=== PATIENT | female | born 2000 | race Caucasian/White ===

== ENCOUNTER 2022-08-11 10:13 | Emergency (ER) | payer SELFPAY ==
--- OUTSIDE RECORDS SUMMARY | 2022-08-11 10:23 | XMS REPORT | Continuity of Care Document ---
:2000 Author Organization [facility] t Address [address] [place] [address] Care Team Providers Name Role Phone RAIMUNDO ZENDEJAS Primary Care Physician Unavailable YADI ARELLANO Attending Clinician Unavailable ARLETH DENISE Attending Clinician Unavailable BRENDON MANE Attending Clinician Unavailable KIM LORA Attending Clinician Unavailable FRANCHESCA ZAMORANO Attending Clinician Unavailable KALI THOMPSON Attending Clinician Unavailable LUCRECIA JORGE Attending Clinician Unavailable LIBRA LEBRON Attending Clinician Unavailable MARY ANN HARMON Attending Clinician Unavailable SVEN ALMANZAR Attending Clinician Unavailable JANNA HUGHES Attending Clinician Unavailable Mk Sebastian Attending Clinician MK SEBASTIAN Attending Clinician Unavailable SUPRIYA DWYER Attending Clinician Unavailable NAVDEEP HARRIS Attending Clinician Unavailable ABIGAIL BARRETT Attending Clinician Unavailable JOSE RAMON ALMAGUER Attending Clinician Unavailable Dylan Duran Attending Clinician RAGHAV OMALLEY Attending Clinician Unavailable IDANIA ERAZO Attending Clinician Unavailable AJ CHAVEZ Attending Clinician Unavailable LUIS SANTOS Attending Clinician Unavailable Christopher Bennett Attending Clinician Andreina Castillo Attending Clinician Marsha Maria Attending Clinician Obed Garcia Attending Clinician Aj Lazaro Jr Attending Clinician Keon Grey Attending Clinician Dc Weaver Attending Clinician Juan Soriano Attending Clinician Payers Payer Name Policy Type Policy Number Effective Date Expiration Date Navdeep ortiz [facility] [id number] 2021 2022 ASSISTANCE PROGRAM 00:00:00 00:00:00 INDIGENT [id number] [facility] [id number] 0064-12-03 2022 PLANNING INDIGENT 00:00:00 00:00:00 Problems Condition Condition Condition Status Onset Resolution Last Treating Co mments Source Name Details Category Date Date Treatment Clinician Date ABD PAIN, ABD PAIN, Diagnosis Active 2021-07-28 Memoria 07-28 23:35:00 l Active 00:00: Ravinder 07/28/2021 00 [facility] LEG INJURY LEG Diagnosis Active 2020-062021-05-06 Memoria INJURY 07-05 05:51:00 l Active 23:15: Ravinder 05/05/2021 00 [facility] FEVER/ FEVER/ Diagnosis Active 2018-03-04 M emoria DIARRHEA / DIARRHEA / 02-28 13:35:00 l VOMITING / VOMITING / 00:00: rmann WEAKNESS WEAKNESS 00 Active 02/28/2018 [facility] UNK UNK Diagnosis Active 2018-02-07 Mem oria Active 02-06 07:54:00 l 02/06/2018 00:00: Vu wright 00 [facility] HEADACHE, HEADACHE, Diagnosis Active 2018-03-04 Memoria VOMITING VOMITING 01-27 13:35:00 l Active 00:00: Ravinder 01/27/2018 00 [facility] DX: R10.9 DX: R10.9 Diagnosis Active 2018-01-24 Memoria Active 01-17 10:30:00 l 01/17/2018 00:00: Vu wright 00 [facility] JOCELYNE JOCELYNE Diagnosis Active 2018-01-09 Mem oria Active 12-24 20:01:00 l 12/24/2017 00:00: Vu wright 00 [facility] ABDOMINAL Diagnosis Active 2018-01-13 Memoria PAIN ABDOMINAL 12-06 14:04:00 l PAIN 00:00: Ravinder Active 00 12/06/2017 [facility] SORE SORE Diagnosis Active 2017-11-04 Mem oria THROAT, THROAT, 11-04 19:16:00 l NECK PAIN NECK PAIN 00:00: Herm rihanna Active 00 11/04/2017 [facility] FAINTED FAINTED Diagnosis Active 2017-10-21 Memoria Active 10-21 13:43:00 l 10/21/2017 00:00: Vu wright 00 [facility] TOOTH PAIN TOOTH Diagnosis Active 2017-09-17 Memoria PAIN 09-13 09:35:00 l Active 00:00: Ravinder 09/13/2017 00 [facility] FEVER, FEVER, Diagnosis Active 2017-07-31 Me moria BODY PAIN, BODY PAIN, 07-31 10:51:00 l COUGH COUGH 00:00: Ravinder Active 00 07/31/2017 [facility] INFECTION INFECTION Diagnosis Active 2017-07-12 Memoria DUE TO DUE TO 07-11 17:17:00 l TATOO TATOO 00:00: Ravinder Active 00 07/11/2017 [facility] ABD PAIN ABD PAIN Diagnosis Active 2016-11-17 Memoria Active 11-16 03:03:00 l 11/16/2016 00:00: Vu wright 00 [facility] Nausea Nausea Problem 2018-08-13 Zbigniew griselda with with 13:31:49 l vomiting, vomiting, Herm rhianna unspecifie unspecifie d d 08/13/2018 [facility], [facility] Functional Functiona Problem 2018-08-13 Memoria dyspepsia l 13:31:49 l dyspepsia [place] 08/13/2018 [facility] Bitten or Bitten or Problem 2017-10-18 Memoria stung by stung by 15:55:59 l nonvenomou nonvenomou greg s insect s insect and other and other nonvenomou nonvenomou s s arthropods arthropods , initial , initial encounter encounter 10/18/2017 [facility] Obesity, Obesity, Problem 2018-09-17 Memoria unspecifie unspecifie 15:08:24 l d d [place] 09/17/2018 [facility] Gastro-eso Gastro-es Problem 2018-09-17 Memoria phageal ophageal 15:08:24 l reflux reflux [place] disease disease without without esophagiti esophagiti s s 09/17/2018 [facility] 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) Herm rhianna 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 09/17/2018 [facility] Gastropare Gastropar Problem 2018-08-27 Memoria sis esis 14:02:38 l 08/27/2018 Vu n [facility] Gastro-eso Gastro-es Problem 2018-08-27 Memoria phageal ophageal 14:02:38 l reflux reflux 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 08/27/2018 [facility] Anxiety Anxiety Problem Resolve 2021-07-30 M emoria (finding) (finding) d 23:51:38 l Resolved [place] Problem 07/30/2021 [facility] Bipolar Bipolar Problem Resolve 2021-07-30 M emoria disorder disorder d 23:51:38 l (disorder) (disorder) He rmann Resolved Problem 07/30/2021 [facility] Depressive Depressiv Problem Resolve 2021-07-30 Memoria disorder e disorder d 23:51:38 l (disorder) (disorder) He rmann Resolved Problem 07/30/2021 [facility] Gastroesop Gastroeso Problem Resolve 2021-07-30 Memoria hageal phageal d 23:51:38 l reflux reflux Ravinder disease disease (disorder) (disorder) Resolved Problem 07/30/2021 [facility] History of History Problem Resolve 2021-07-30 Memoria - of - d 23:51:38 l psychiatri psychiatri He rmann c disorder c disorder (context-d (context-d ependent ependent category) category) Resolved Problem 07/30/2021 [facility] Interstiti Problem Resolve 2021-07-30 Memoria al Interstiti d 23:51:38 l emphysema al Ravinder of lung emphysema (disorder) of lung (disorder) Resolved Problem 07/30/2021 [facility] Migraine Migraine Problem Resolve 2021-07-30 Memoria (disorder) (disorder) d 23:51:38 l Resolved Ravinder Problem 07/30/2021 [facility], [facility] Seizure Seizure Problem Resolve 2021-07-30 M emoria (finding) (finding) d 23:51:38 l Resolved Ravinder Problem 07/30/2021 [facility], [facility] History of Past Illness Condition Condition Condition Status Onset Resolution Last Treating Co mments Source Name Details Category Date Date Treatment Clinician Date Nondisplac Nondispla Problem 2020-062021-05-08 2021-05-08 Memoria ed maddy 07-06 22:16:27 22:16:27 l fracture fracture 18:00: Vu n of distal of distal 00 phalanx of phalanx of left great left great toe, toe, initial initial encounter encounter for closed for closed fracture fracture 05/06/2021 05/08/2021 [facility] Fall (on) Fall (on) Problem 2020-062021-05-08 2021-05-08 Memoria (from) (from) 07-06 22:16:27 22:16:27 l other other 18:00: Ravinder stairs and stairs and 00 steps, steps, initial initial encounter encounter 05/06/2021 05/08/2021 [facility] Pain in Pain in Problem 2020-062021-05-08 2021-05-08 Memoria right right 07-06 22:16:27 22:16:27 l ankle ankle 18:00: Ravinder 05/06/2021 00 05/08/2021 [facility] Sprain of Sprain Problem 2020-062021-05-08 2021-05-08 Memoria unspecifie of 07-06 22:16:27 22:16:27 l d ligament unspecifie 18:00: He greg of right d ligament 00 ankle, of right initial ankle, encounter initial encounter 05/06/2021 05/08/2021 [facility] Viral Viral Problem 2017-2018-09-17 2018-09-17 brent infection, infection, 02-28 15:08:24 15:08:24 l unspecifie unspecifie 05:00: He greg d d 00 02/28/2018 09/17/2018 [facility] Gastritis, Gastritis Problem 2017-2018-09-17 2018-09-17 Memoria unspecifie , 02-28 15:08:24 15:08:24 l d, without unspecifie 05:00: He rmann bleeding d, without 00 bleeding 02/28/2018 9 [facility], [facility] Headache Headache Problem 2018-09-17 2018-09-17 Memoria 02/28/201802-28 15:08:24 15:08:24 l 09/17/2018 05:00: Vu wright 00 [facility] Diaphragma Diaphragm Problem 2018-08-27 2018-08-27 Memoria tic hernia atic 02-16 14:02:38 14:02:38 l without hernia 02:45: Ravinder obstructio without 00 n or obstructio gangrene n or gangrene 02/16/2018 9 [facility] Unspecifie Unspecifi Problem 2018-08-13 2018-08-13 Memoria d ed 02-01 13:31:49 13:31:49 l abdominal abdominal 03:58: Herm rhianna pain pain 55 02/01/2018 9 [facility] Obstructiv Obstructi Problem 2018-07-29 2018-07-29 Memoria e sleep ve sleep 01-16 12:50:48 12:50:48 l apnea apnea 03:21: Ravinder (adult) (adult) 54 (pediatric (pediatric ) ) 01/16/2018 9 [facility] Vomiting, Vomiting, Problem 2017-11-07 2017-11-07 Memoria unspecifie unspecifie 11-04 00:52:58 00:52:58 l d d 05:00: Ravinder 11/04/2017 8 [facility] Cough Cough Problem 2017-11-06 2017-11-06 M emoria 07/31/201707-31 14:45:10 14:45:10 l 11/06/2017 06:00: Vu wirght [address] Acute Acute Problem 2017-11-06 2017-11-06 M emoria pharyngiti pharyngiti 07-31 14:45:10 14:45:10 l s, s, 06:00: Ravinder unspecifie unspecifie 00 d d 07/31/2017 11/06/2017 [facility] Myalgia Myalgia Problem 2017-10-24 2017-10-24 Memoria 10/21/201710-21 02:28:36 02:28:36 l 10/24/2017 05:00: Vu wright [address] Syncope Syncope Problem 2017-10-24 2017-10-24 Memoria and and 10-21 02:28:36 02:28:36 l collapse collapse 05:00: Vu wright 10/21/2017 00 10/24/2017 [facility] Insect Insect Problem 2017-10-18 2017-10-18 Memoria bite bite 07-19 15:55:59 15:55:59 l (nonvenomo (nonvenomo 05:07: He greg ) of ) of 45 left left forearm, forearm, initial initial encounter encounter 07/19/2017 10/18/2017 [facility] Other Other Problem 2016-11-20 2016-11-20 Memoria chest pain chest pain 11-17 01:11:21 01:11:21 l 11/17/2016 05:00: Vu wright 11/20/2016 00 [facility] Fracture Fracture Problem 2016-11-20 2016-11-20 Memoria of one of one 11-17 01:11:21 01:11:21 l rib, rib, 05:00: Ravinder unspecifie unspecifie 00 d side, d side, initial initial encounter encounter for closed for closed fracture fracture 11/17/2016 7 [facility] Allergies, Adverse Reactions, Alerts Allergy Allergy Status Severity Reaction(s) Onset Inactive Treating Comm ents Source Name Type Date Date Clinician Meloxica Propensi Active Swelling 2016-06 Meth see m ty to 06-18 st adverse 00:00: Hospita reaction 00 l s to drug Escitalo Propensi Active Method i pram ty to 6 st Oxalate adverse 00:00: Hospita reaction 00 l s to drug Morphine Propensi Active Method i ty to 12-07 st adverse 00:00: Hospita reaction 00 l s to drug morphine morphine Active Memori a l [place] Lexapro Lexapro Active Memoria l [place] Tape<sup Tape<sup Active Memori a >1</sup> >1</sup> l [place] Social History Social Habit Start Date Stop Date Quantity Comments Source Social History 2021-07-29 2021-07-29 [facility] 02:09:07 02:09:07 Alcohol intake 2020-03-04 2020-03-04 Current drinker of [facility] 00:00:00 00:00:00 alcohol (finding) Hospita l Tobacco use and 2018-06-19 2018-06-19 Smokeless tobacco [facility] exposure 00:00:00 00:00:00 non-user Hospital Alcohol Comment 2018-06-19 2018-06-19 occassional Methodis t 00:00:00 00:00:00 Hospital Sex Assigned At [birth year] [place] 00:00:00 00:00:00 Hospital Smoking Status Start Date Stop Date Source Social History [facility] Medications Ordered Filled Start Stop Current Ordering Indication Dosage Frequency Signature Comments Components Source Medication Medication Date Date Medication? Clinician (SIG) Name Name Cephalexin Yes 500 mg = 1 M emoria 500 MG Oral 2-19 cap, PO, l Capsule 03:55: TID, X 5 Vu n [Keflex] day, # 15 cap, 0 Refill(s) Metoclopram Yes 10 mg = 1 M emoria ingrid 10 MG 2-19 tab, PO, l Oral Tablet 03:55: QID-Before [place] [Reglan] 00 Meals, PRN nausea and vomiting, X 3 day, # 12 tab, 0 Refill(s) doxylamine Yes 1 tab, PO, M emoria succinate 2-19 Bedtime, # l 10 MG / 03:55: 14 tab, 0 Trudy nn Pyridoxine 00 Refill(s) Hydrochlori de 10 MG Enteric Coated Tablet [Diclegis] Cephalexin Yes 500 mg = 1 M emoria 500 MG Oral 2-19 cap, PO, l Capsule 03:55: TID, X 5 Vu n [Keflex] 00 day, # 15 cap, 0 Refill(s) Metoclopram Yes 10 mg = 1 M emoria ingrid 10 MG 2-19 tab, PO, l Oral Tablet 03:55: QID-Before [place] [Reglan] 00 Meals, PRN nausea and vomiting, X 3 day, # 12 tab, 0 Refill(s) doxylamine 0 Yes 1 tab, PO, M emoria succinate 2-19 Bedtime, # l 10 MG / 03:55: 14 tab, 0 Trudy nn Pyridoxine 00 Refill(s) Hydrochlori de 10 MG Enteric Coated Tablet [Diclegis] Cephalexin Yes 500 mg = 1 M emoria 500 MG Oral 2-19 cap, PO, l Capsule 03:55: TID, X 5 Vu n [Keflex] 00 day, # 15 cap, 0 Refill(s) Metoclopram Yes 10 mg = 1 M emoria ingrid 10 MG 2-19 tab, PO, l Oral Tablet 03:55: QID-Before Ravinder [Reglan] 00 Meals, PRN nausea and vomiting, X 3 day, # 12 tab, 0 Refill(s) doxylamine 0 Yes 1 tab, PO, M emoria succinate 2-19 Bedtime, # l 10 MG / 03:55: 14 tab, 0 Trudy nn Pyridoxine 00 Refill(s) Hydrochlori de 10 MG Enteric Coated Tablet [Diclegis] Sodium 2021-0 No 1,000 mL, Memori a Chloride 2-19 1,000 l 0.9% 03:52: ml/hr, Ravinder (Bolus) IV 00 Infuse Over: 1 hr, Route: IV, 1,000, Drug form: INJ, ONCE, Priority: STAT, Dosing Weight 101.449 kg, Start date: 07/28/21 21:52: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, Stop date: 07/28/21 21:52: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, 0 Sodium 2021-0 No 1,000 mL, Memori a Chloride 2-19 1,000 l 0.9% 03:52: ml/hr, [place] (Bolus) IV 00 Infuse Over: 1 hr, Route: IV, 1,000, Drug form: INJ, ONCE, Priority: STAT, Dosing Weight 101.449 kg, Start date: 07/28/21 21:52: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, Stop date: 07/28/21 21:52: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 Ravinder 00 (Same as: Tylenol) Acetaminoph No Notes: Do M emoria en - not exceed l 01:59: 4 gm/day. [place] 00 (Same as: Tylenol) Acetaminoph No Notes: Do M emoria en - not exceed l 01:59: 4 gm/day. Ravinder (Same as: Tylenol) tramadol 2020-06 Yes 1 - 2 Memoria hydrochlori 1-27 tabs, PO, l de 50 MG 12:15: Q6H, PRN Trudy nn Oral Tablet 00 Pain Score [Ultram] 6-10, X 4 day, # 20 tab, 0 Refill(s) tramadol 2020-06 Yes 1 - 2 Memoria hydrochlori 1-27 tabs, PO, l de 50 MG 12:15: Q6H, PRN Trudy nn Oral Tablet 00 Pain Score [Ultram] 6-10, X 4 day, # 20 tab, 0 Refill(s) tramadol 2020-06 Yes 1 - 2 Memoria hydrochlori 1-27 tabs, PO, l de 50 MG 12:15: Q6H, PRN Trudy nn Oral Tablet 00 Pain Score [Ultram] 6-10, X 4 day, # 20 tab, 0 Refill(s) Ketorolac 2020-06 No 4 days Memor ia - l 09:59: MEDICATION [place] WASTE Product Size: 60 mg Product Wasted: ___ mg Ketorolac 2020-06 No 4 days Memor ia 07-06 l 09:59: MEDICATION [place] WASTE Product Size: 60 mg Product Wasted: ___ mg Ketorolac 2020-06 No 4 days Memor ia 07-06 l 09:59: MEDICATION [place] WASTE Product Size: 60 mg Product Wasted: ___ mg baclofen 2020-0 Yes 10mg Q24H Take 10 mg Met hodi (LIORESAL) 1-[address] 10 MG 12:00: daily as Hospita tablet 00 needed. l promethazin 2020-0 Yes 25mg Q6H Take 25 mg Methodi e 1-[address] (PHENERGAN) 11:38: every 6 Hos karely 25 MG 03 (six) l tablet hours as needed for nausea or vomiting. ondansetron 2020-0 Yes 8mg Q8H Take 8 mg M ethodi (ZOFRAN) 8 1-[address] MG tablet 11:38: every 8 Hospi ta 03 (eight) l hours as needed for nausea or vomiting. omeprazole 2020-0 Yes 40mg QD Take 40 mg M ethodi (PriLOSEC) 1-[address] 20 MG 11:38: daily. Hospita capsule 03 l OXcarbazepi 2020-0 Yes 600mg Q.5D Take 600 M ethodi ne 1-[address] (TRILEPTAL) 11:38: mouth 2 Hos karely 600 MG 03 (two) l tablet times a day. traZODone 2017-06 Yes 50mg QD Take 50 mg Me thodi (DESYREL) 2-[address] 50 MG 00:00: nightly. Hospita tablet 00 l Metoclopram 2017-0 No 10 mg = 1 M emoria ingrid 10 MG 9-21 tab, PO, l Oral Tablet 20:36: QID-Before [place] [Reglan] 00 Meals, X 10 day, # 20 tab, 0 Refill(s) Metoclopram 2017- No 10 mg = 1 M emoria ingrid 10 MG 9-21 tab, PO, l Oral Tablet 20:36: QID-Before Ravinder [Reglan] 00 Meals, X 10 day, # 20 tab, 0 Refill(s) Metoclopram 2018-0 No 10 mg = 1 M emoria ingrid 10 MG -21 tab, PO, l Oral Tablet 20:36: QID-Before [place] [Reglan] 00 Meals, X 10 day, # 20 tab, 0 Refill(s) Tylenol 2018-0 No 1,000 mg, Memor ia 02-28 Route: PO, l 18:44: Drug form: [place] 00 TAB, ONCE, Dosing Weight 85, kg, Priority: STAT, Start date: 02/28/18 13:44:00 CDT, Stop date: 02/28/18 13:44:00 CDT Zofran ODT 2018-0 No 4 mg, Memori a 02-28 Route: PO, l 18:44: Drug form: [place] 00 TABDIS, ONCE, Dosing Weight 85.455, kg, Priority: STAT, Start date: 02/28/18 13:44:00 CDT, Stop date: 02/28/18 13:44:00 CDT Tylenol 2018-0 No 1,000 mg, Memor ia 02-28 Route: PO, l 18:44: Drug form: Ravinder 00 TAB, ONCE, Dosing Weight 85, kg, Priority: STAT, Start date: 02/28/18 13:44:00 CDT, Stop date: 02/28/18 13:44:00 CDT Zofran ODT 2018-0 No 4 mg, Memori a 02-28 Route: PO, l 18:44: Drug form: [place] 00 TABDIS, ONCE, Dosing Weight 85.455, kg, Priority: STAT, Start date: 02/28/18 13:44:00 CDT, Stop date: 02/28/18 13:44:00 CDT Tylenol 2018-0 No 1,000 mg, Memor ia 02-28 Route: PO, l 18:44: Drug form: [place] 00 TAB, ONCE, Dosing Weight 85, kg, Priority: STAT, Start date: 02/28/18 13:44:00 CDT, Stop date: 02/28/18 13:44:00 CDT Zofran ODT 2018-0 No 4 mg, Memori a 02-28 Route: PO, l 18:44: Drug form: [place] 00 TABDIS, ONCE, Dosing Weight 85.455, kg, Priority: STAT, Start date: 02/28/18 13:44:00 CDT, Stop date: 02/28/18 13:44:00 CDT Sodium 2018-0 No 1,000 mL, Memori a Chloride 8-31 Rate: 25 l 0.9% IV 13:16: ml/hr, Ravinder 1,000 mL 00 Infuse over: 40 hr, Route: IV, Dosing Weight 85.455 kg, Total Volume: 1,000, Start date: 02/07/18 8:16:00 CDT, Duration: 1 day, Stop date: 02/08/18 8:15:00 CDT, 2.03, m2 Sodium 2018-0 No 1,000 mL, Memori a Chloride 8-31 Rate: 25 l 0.9% IV 13:16: ml/hr, Ravinder 1,000 mL 00 Infuse over: 40 hr, Route: IV, Dosing Weight 85.455 kg, Total Volume: 1,000, Start date: 02/07/18 8:16:00 CDT, Duration: 1 day, Stop date: 02/08/18 8:15:00 CDT, 2.03, m2 Sodium 2018-0 No 1,000 mL, Memori a Chloride 8-31 Rate: 25 l 0.9% IV 13:16: ml/hr, [place] 1,000 mL 00 Infuse over: 40 hr, Route: IV, Dosing Weight 85.455 kg, Total Volume: 1,000, Start date: 02/07/18 8:16:00 CDT, Duration: 1 day, Stop date: 02/08/18 8:15:00 CDT, 2.03, m2 lisdexamfet 2017- Yes 40 mg = 1 M emoria amine 8-30 cap, PO, l dimesylate 22:13: QAM, # 30 He rmann 40 MG Oral 00 cap, 0 Capsule Refill(s) [Vyvanse] Acetaminoph 2017-0 Yes 1 cap, PO, Memoria en 300 MG / 8-30 Daily, PRN l butalbital 22:13: Headache Her montiel 50 MG / 00 1-5, 0 Caffeine 40 Refill(s) MG Oral Capsule [Fioricet] Ondansetron 2018-0 Yes 8 mg = 1 Me moria 8 MG 8-30 tab, PO, l Disintegrat 22:13: BID, 0 Herm rhianna ing Tablet 00 Refill(s) [Zofran] Promethazin 2018-0 Yes 25 mg = 1 M emoria e 8-30 tab, PO, l Hydrochlori 22:13: BID, 0 Herm rhianna de 25 MG 00 Refill(s) Oral Tablet lisdexamfet 2018-0 Yes 40 mg = 1 M emoria amine 8-30 cap, PO, l dimesylate 22:13: QAM, # 30 He rmann 40 MG Oral 00 cap, 0 Capsule Refill(s) [Vyvanse] Acetaminoph 2018-0 Yes 1 cap, PO, Memoria en 300 MG / 8-30 Daily, PRN l butalbital 22:13: Headache Her montiel 50 MG / 00 1-5, 0 Caffeine 40 Refill(s) MG Oral Capsule [Fioricet] Ondansetron 2018-0 Yes 8 mg = 1 Me moria 8 MG 8-30 tab, PO, l Disintegrat 22:13: BID, 0 Herm rhianna ing Tablet 00 Refill(s) [Zofran] Promethazin 2018-0 Yes 25 mg = 1 M emoria e 8-30 tab, PO, l Hydrochlori 22:13: BID, 0 Herm rhianna de 25 MG 00 Refill(s) Oral Tablet lisdexamfet 2018-0 Yes 40 mg = 1 M emoria amine 8-30 cap, PO, l dimesylate 22:13: QAM, # 30 He rmann 40 MG Oral 00 cap, 0 Capsule Refill(s) [Vyvanse] Acetaminoph 2018-0 Yes 1 cap, PO, Memoria en 300 MG / 8-30 Daily, PRN l butalbital 22:13: Headache Her montiel 50 MG / 00 1-5, 0 Caffeine 40 Refill(s) MG Oral Capsule [Fioricet] Ondansetron 2018-0 Yes 8 mg = 1 Me moria 8 MG 8-30 tab, PO, l Disintegrat 22:13: BID, 0 Herm rhianna ing Tablet 00 Refill(s) [Zofran] Promethazin 2018-0 Yes 25 mg = 1 M emoria e 8-30 tab, PO, l Hydrochlori 22:13: BID, 0 Herm rhianna de 25 MG 00 Refill(s) Oral Tablet Esomeprazol Yes 40 mg = 1 M emoria e 40 MG 8-30 cap, PO, l Enteric 22:12: Daily, # Vu n Coated 00 30 cap, 0 Capsule Refill(s) Esomeprazol Yes 40 mg = 1 M emoria e 40 MG 8-30 cap, PO, l Enteric 22:12: Daily, # Vu n Coated 00 30 cap, 0 Capsule Refill(s) Esomeprazol Yes 40 mg = 1 M emoria e 40 MG 8-30 cap, PO, l Enteric 22:12: Daily, # Vu n Coated 00 30 cap, 0 Capsule Refill(s) Buspar Yes PO, BID, 0 Memor ia 8-30 Refill(s) l 22:11: Ravinder 00 baclofen Yes 10 mg = 1 M emoria mg oral 8-30 tab, PO, l tablet 22:11: BID, 0 Ravinder 00 Refill(s) 24 HR Yes 1,000 mg = Memori a Divalproex 8-30 2 tab, PO, l Sodium 500 22:11: Bedtime, # H ermann MG Extended 00 60 tab, 1 Release Refill(s) Tablet Buspar 0 Yes PO, BID, 0 Memor ia 8-30 Refill(s) l 22:11: [place] 00 baclofen 10 Yes 10 mg = 1 M emoria mg oral 8-30 tab, PO, l tablet 22:11: BID, 0 Ravinder 00 Refill(s) 24 HR Yes 1,000 mg = Memori a Divalproex 8-30 2 tab, PO, l Sodium 500 22:11: Bedtime, # H ermann MG Extended 00 60 tab, 1 Release Refill(s) Tablet Buspar 0 Yes PO, BID, 0 Memor ia 8-30 Refill(s) l 22:11: [place] 00 baclofen 10 Yes 10 mg = 1 M emoria mg oral 8-30 tab, PO, l tablet 22:11: BID, 0 [place] 00 Refill(s) 24 HR Yes 1,000 mg = Memori a Divalproex 8-30 2 tab, PO, l Sodium 500 22:11: Bedtime, # H ermann MG Extended 00 60 tab, 1 Release Refill(s) Tablet Ondansetron Yes 4 mg = 1 Me moria 4 MG 6-29 tab, PO, l Disintegrat 14:48: TID, PRN He rmann ing Tablet 00 Nausea & [Zofran] Vomiting, Dissolve tab under tongue, # 9 tab, 0 Refill(s) Famotidine Yes 20 mg = 1 Me moria 20 MG Oral 6-29 tab, PO, l Tablet 14:48: BID, PRN [place] [Pepcid] 00 Heartburn, # 60 tab, 0 Refill(s) Ondansetron Yes 4 mg = 1 Me moria 4 MG 6-29 tab, PO, l Disintegrat 14:48: TID, PRN He rmann ing Tablet 00 Nausea & [Zofran] Vomiting, Dissolve tab under tongue, # 9 tab, 0 Refill(s) Famotidine Yes 20 mg = 1 Me moria 20 MG Oral 6-29 tab, PO, l Tablet 14:48: BID, PRN [place] [Pepcid] 00 Heartburn, # 60 tab, 0 Refill(s) Ondansetron Yes 4 mg = 1 Me moria 4 MG 6-29 tab, PO, l Disintegrat 14:48: TID, PRN He rmann ing Tablet 00 Nausea & [Zofran] Vomiting, Dissolve tab under tongue, # 9 tab, 0 Refill(s) Famotidine Yes 20 mg = 1 Me moria 20 MG Oral 6-29 tab, PO, l Tablet 14:48: BID, PRN [place] [Pepcid] 00 Heartburn, # 60 tab, 0 Refill(s) Pepcid No 20 mg, Memoria 12-06 Route: l 13:23: IVP, ONCE, Ravinder Dosing Weight 84.545, kg, Priority: STAT, Start date: 12/06/17 8:23:00 CDT, Stop date: 12/06/17 8:23:00 CDT GI cocktail No 30 mL, Zbigniew griselda 12-06 Route: PO, l 13:23: Dosing Weight 84.545, kg, ONCE, STAT, Start date: 12/06/17 8:23:00 CDT, Stop date: 12/06/17 8:23:00 CDT Ondansetron 2018-0 No 4 mg, [facility] ia 12-06 Route: l 13:23: IVP, Drug form: INJ, ONCE, Dosing Weight 84.545, kg, Priority: STAT, Start date: 12/06/17 8:23:00 CDT, Stop date: 12/06/17 8:23:00 CDT NS (Bolus) 2018-0 No 1,000 mL, Me moria IV - 2,000 l 13:23: ml/hr, [place] 00 Infuse Over: 1 hr, Route: IV, ONCE, Priority: STAT, Dosing Weight 84.545 kg, Start date: 12/06/17 8:23:00 CDT, Stop date: 12/06/17 8:23:00 CDT Pepcid 2018-0 No 20 mg, [facility] 12-06 Route: l 13:23: IVP, ONCE, Dosing Weight 84.545, kg, Priority: STAT, Start date: 12/06/17 8:23:00 CDT, Stop date: 12/06/17 8:23:00 CDT GI cocktail 2017-0 No 30 mL, Zbigniew griselda 12-06 Route: PO, l 13:23: Dosing Weight 84.545, kg, ONCE, STAT, Start date: 12/06/17 8:23:00 CDT, Stop date: 12/06/17 8:23:00 CDT Ondansetron 2017-0 No 4 mg, [facility] 12-06 Route: l 13:23: IVP, Drug form: INJ, ONCE, Dosing Weight 84.545, kg, Priority: STAT, Start date: 12/06/17 8:23:00 CDT, Stop date: 12/06/17 8:23:00 CDT NS (Bolus) 2018-0 No 1,000 mL, Me moria IV - 2,000 l 13:23: ml/hr, [place] 00 Infuse Over: 1 hr, Route: IV, ONCE, Priority: STAT, Dosing Weight 84.545 kg, Start date: 12/06/17 8:23:00 CDT, Stop date: 12/06/17 8:23:00 CDT Pepcid 2018-0 No 20 mg, [facility] 12-06 Route: l 13:23: IVP, ONCE, Dosing Weight 84.545, kg, Priority: STAT, Start date: 12/06/17 8:23:00 CDT, Stop date: 12/06/17 8:23:00 CDT GI cocktail 2018-0 No 30 mL, Zbigniew griselda 12-06 Route: PO, l 13:23: Dosing Weight 84.545, kg, ONCE, STAT, Start date: 12/06/17 8:23:00 CDT, Stop date: 12/06/17 8:23:00 CDT Ondansetron 2018-0 No 4 mg, [facility] 12-06 Route: l 13:23: IVP, Drug form: INJ, ONCE, Dosing Weight 84.545, kg, Priority: STAT, Start date: 12/06/17 8:23:00 CDT, Stop date: 12/06/17 8:23:00 CDT NS (Bolus) 2018-0 No 1,000 mL, Me moria IV 12-06 2,000 l 13:23: ml/hr, [place] 00 Infuse Over: 1 hr, Route: IV, ONCE, Priority: STAT, Dosing Weight 84.545 kg, Start date: 12/06/17 8:23:00 CDT, Stop date: 12/06/17 8:23:00 CDT Ondansetron 2018-0 Yes 4 mg = 1 Me moria 4 MG 5-29 tab, PO, l Disintegrat 03:34: TID, PRN He rmann ing Tablet 00 Nausea and [Zofran] Vomiting, Dissolve under tongue, # 12 tab, 0 Refill(s) Ondansetron 2018-0 Yes 4 mg = 1 Me moria 4 MG 5-29 tab, PO, l Disintegrat 03:34: TID, PRN He rmann ing Tablet 00 Nausea and [Zofran] Vomiting, Dissolve under tongue, # 12 tab, 0 Refill(s) Ondansetron 2018-0 Yes 4 mg = 1 Me moria 4 MG 5-29 tab, PO, l Disintegrat 03:34: TID, PRN He rmann ing Tablet 00 Nausea and [Zofran] Vomiting, Dissolve under tongue, # 12 tab, 0 Refill(s) Sodium 0 No 1,000 mL, Memori a Chloride 5-29 1,000 l 0.9% 00:37: ml/hr, Ravinder (Bolus) IV 00 Infuse Over: 1 hr, Route: IV, 1,000, Drug form: INJ, ONCE, Priority: STAT, Dosing Weight 82.727 kg, Start date: 11/04/17 19:37:00 CDT, Stop date: 11/04/17 19:37:00 CDT Sodium 2017- No 1,000 mL, Memori a Chloride 5-29 1,000 l 0.9% 00:37: ml/hr, [place] (Bolus) IV 00 Infuse Over: 1 hr, Route: IV, 1,000, Drug form: INJ, ONCE, Priority: STAT, Dosing Weight 82.727 kg, Start date: 11/04/17 19:37:00 CDT, Stop date: 11/04/17 19:37:00 CDT Sodium No 1,000 mL, Mem[facility] a Chloride 5-29 1,000 l 0.9% 00:37: ml/hr, Ravinder (Bolus) IV 00 Infuse Over: 1 hr, Route: IV, 1,000, Drug form: INJ, ONCE, Priority: STAT, Dosing Weight 82.727 kg, Start date: 11/04/17 19:37:00 CDT, Stop date: 11/04/17 19:37:00 CDT Zofran ODT No Notes: [facility] 5-28 (Same as: l 23:44: Zofran Ravinder 00 ODT) Zofran ODT 0 No Notes: [facility] 5-28 (Same as: l 23:44: Zofran [place] 00 ODT) Zofran ODT 0 No Notes: [facility] 5-28 (Same as: l 23:44: Zofran Ravinder 00 ODT) Acetaminoph 0 No 1 tab, PO, Memoria en 300 MG / 5-14 Q6H, PRN l Codeine 18:53: Pain, can Trudy nn Phosphate 00 be 30 MG Oral sedating, Tablet # 12 tab, [Tylenol 0 with Refill(s) Codeine #3] Acetaminoph 0 No 1 tab, PO, Memoria en 300 MG / 5-14 Q6H, PRN l Codeine 18:53: Pain, can Trudy nn Phosphate 00 be 30 MG Oral sedating, Tablet # 12 tab, [Tylenol 0 with Refill(s) Codeine #3] Acetaminoph 0 No 1 tab, PO, Memoria en 300 MG / 5-14 Q6H, PRN l Codeine 18:53: Pain, can Trudy nn Phosphate 00 be 30 MG Oral sedating, Tablet # 12 tab, [Tylenol 0 with Refill(s) Codeine #3] Acetaminoph No 1 tab, Zbigniew griselda en 325 MG / 5-14 Route: PO, l Hydrocodone 17:11: Drug Form: Ravindre Bitartrate 00 TAB, 5 MG Oral Dosing Tablet Weight [[place] 80.455, 5/325] kg, ONCE, STAT, Start date: 10/21/17 12:11:00 CDT, Stop date: 10/21/17 12:11:00 CDT Acetaminoph 2017-0 No 1 tab, Zbigniew griselda en 325 MG / 5-14 Route: PO, l Hydrocodone 17:11: Drug Form: Ravinder Bitartrate 00 TAB, 5 MG Oral Dosing Tablet Weight [[place] 80.455, 5/325] kg, ONCE, STAT, Start date: 10/21/17 12:11:00 CDT, Stop date: 10/21/17 12:11:00 CDT Acetaminoph 0 No 1 tab, Zbigniew griselda en 325 MG / 5-14 Route: PO, l Hydrocodone 17:11: Drug Form: [place] Bitartrate 00 TAB, 5 MG Oral Dosing Tablet Weight [[place] 80.455, 5/325] kg, ONCE, STAT, Start date: 10/21/17 12:11:00 CDT, Stop date: 10/21/17 12:11:00 CDT busPIRone 2017- Yes 10mg [id number] Take 10 mg [facility] (BUSPAR) 10 4-16 [id number] by mouth [address] MG tablet 00:00: 3D (three) Hospi ta 00 times a l day. Fluticasone 2017- Yes 1 spray, Me moria propionate 2-21 NASAL, l 0.05 16:59: BID, # 16 [place] MG/ACTUAT 00 gm, 0 Metered Refill(s) Dose Nasal [place] [Flonase] Fluticasone 0 Yes 1 spray, Me moria propionate 2-21 NASAL, l 0.05 16:59: BID, # 16 Ravinder MG/ACTUAT 00 gm, 0 Metered Refill(s) Dose Nasal [place] [Flonase] Fluticasone 20180 Yes 1 spray, Me moria propionate 2-21 NASAL, l 0.05 16:59: BID, # 16 [place] MG/ACTUAT 00 gm, 0 Metered Refill(s) Dose Nasal [place] [Flonase] Acetaminoph No 1 tab, Zbigniew griselda en 325 MG / 6-10 Route: PO, l Hydrocodone 09:54: Drug Form: Ravinder Bitartrate 00 TAB, 5 MG Oral Dosing Tablet Weight [[place] 54.545, 5/325] kg, ONCE, STAT, Start date: 11/17/16 4:54:00 CDT, Stop date: 11/17/16 4:54:00 CDT Acetaminoph 0 No 1 tab, Zbigniew griselda en 325 MG / 6-10 Route: PO, l Hydrocodone 09:54: Drug Form: Ravinder Bitartrate 00 TAB, 5 MG Oral Dosing Tablet Weight [[place] 54.545, 5/325] kg, ONCE, STAT, Start date: 11/17/16 4:54:00 CDT, Stop date: 11/17/16 4:54:00 CDT Acetaminoph No 1 tab, Zbigniew griselda en 325 MG / 6-10 Route: PO, l Hydrocodone 09:54: Drug Form: Ravinder Bitartrate 00 TAB, 5 MG Oral Dosing Tablet Weight [[place] 54.545, 5/325] kg, ONCE, STAT, Start date: 11/17/16 4:54:00 CDT, Stop date: 11/17/16 4:54:00 CDT tramadol Yes 50 mg = 1 Zbigniew griselda hydrochlori 6-10 tab, PO, l de 50 MG 09:38: BID, X 15 Herm rhianna Oral Tablet 00 day, # 16 tab, 0 Refill(s) tramadol Yes 50 mg = 1 Zbigniew griselda hydrochlori 6-10 tab, PO, l de 50 MG 09:38: BID, X 15 Herm rhianna Oral Tablet 00 day, # 16 tab, 0 Refill(s) tramadol Yes 50 mg = 1 Zbigniew griselda hydrochlori 6-10 tab, PO, l de 50 MG 09:38: BID, X 15 Herm rhianna Oral Tablet 00 day, # 16 tab, 0 Refill(s) Zofran No Notes: [facility] 6-10 (Same as: l 07:19: Zofran Ravinder 00 ODT) Zofran No Notes: [facility] 6-10 (Same as: l 07:19: Zofran [place] 00 ODT) Zofran No Notes: [facility] 6-10 (Same as: l 07:19: Zofran [place] 00 ODT) Pepcid No Notes: [facility] 6-10 (Same as: l 07:18: Pepcid) [place] Carafate No Notes: May Mem oria 6-10 interfere l 07:18: w/enteral Ravinder 00 feeds - Take 1 hr before or 2 hr after antacids, dairy pdt, meals & minerals - On empty stomach. For patients unable to swallow tablet, dissolve in 10mL - 30mL of water or juice and stir before giving. (Same As: Carafate) Pepcid No Notes: [facility] 6-10 (Same as: l 07:18: Pepcid) Ravinder 00 Carafate No Notes: May [facility] o[facility] 6-10 interfere l 07:18: w/enteral [place] 00 feeds - Take 1 hr before or 2 hr after antacids, dairy pdt, meals & minerals - On empty stomach. For patients unable to swallow tablet, dissolve in 10mL - 30mL of water or juice and stir before giving. (Same As: Carafate) Pepcid No Notes: [facility] 6-10 (Same as: l 07:18: Pepcid) [place] 00 Carafate 2017-0 No Notes: October Mem o[facility] 6-10 interfere l 07:18: w/enteral [place] 00 feeds - Take 1 hr before or 2 hr after antacids, dairy pdt, meals & minerals - On empty stomach. For patients unable to swallow tablet, dissolve in 10mL - 30mL of water or juice and stir before giving. (Same As: Carafate) Vital Signs Vital Name Observation Time Observation Value Comments Source Temperature Oral (F) 2021-07-29 04:45:00 97.6 F [facility] [place] Heart Rate 2021-07-29 04:45:00 [facility] Respitory Rate 2021-07-29 04:45:00 [facility] [place] Systolic (mm Hg) 2021-07-29 04:45:00 Zbigniew rial Ravinder Diastolic (mm Hg) 2021-07-29 04:45:00 Mem orial [place] Height 2021-07-29 01:54:00 170.18 cm [facility] BMI Calculated 2021-07-29 01:54:00 [facility] Weight 2021-07-29 01:54:00 [facility] [place] Systolic (mm Hg) 2021-07-29 01:54:00 Zbigniew rial Ravinder Diastolic (mm Hg) 2021-07-29 01:54:00 Mem orial [place] Heart Rate 2021-07-29 01:54:00 [facility] Respitory Rate 2021-07-29 01:54:00 [facility] [place] Temperature Oral (F) 2021-05-06 13:09:00 98.2 F [facility] [place] Heart Rate 2021-05-06 13:09:00 [facility] [place] Respitory Rate 2021-05-06 13:09:00 [facility] [place] Systolic (mm Hg) 2021-05-06 13:09:00 Zbigniew rial [place] Diastolic (mm Hg) 2021-05-06 13:09:00 [facility] o[facility] [place] Temperature Oral (F) 2021-05-06 09:30:00 98.9 F [facility] Heart Rate 2021-05-06 09:30:00 [facility] [place] Respitory Rate 2021-05-06 09:30:00 [facility] Systolic (mm Hg) 2021-05-06 09:30:00 Zbigniew rial [place] Diastolic (mm Hg) 2021-05-06 09:30:00 [facility] Height 2021-05-06 05:58:00 170.18 cm [facility] [place] BMI Calculated 2021-05-06 05:58:00 [facility] Weight 2021-05-06 05:58:00 [facility] Systolic (mm Hg) 2021-05-06 05:58:00 Zbigniew rial [place] Diastolic (mm Hg) 2021-05-06 05:58:00 Mem o[facility] Heart Rate 2021-05-06 05:58:00 [facility] [place] Respitory Rate 2021-05-06 05:58:00 [facility] [place] Temperature Oral (F) 2021-05-06 05:58:00 98.7 F [facility] Temperature Oral (F) 2018-02-28 20:34:00 99.5 F [facility] [place] Respitory Rate 2018-02-28 19:23:00 [facility] [place] Heart Rate 2018-02-28 19:23:00 [facility] Systolic (mm Hg) 2018-02-28 19:23:00 Zbigniew rial [place] Diastolic (mm Hg) 2018-02-28 19:23:00 [facility] o[facility] Ravinder Temperature Oral (F) 2018-02-28 19:23:00 98.9 F [facility] [place] Height 2018-02-28 18:35:00 170.18 cm [facility] [place] BMI Calculated 2018-02-28 18:35:00 [facility] [place] Weight 2018-02-28 18:35:00 [facility] [place] Systolic (mm Hg) 2018-02-28 18:35:00 Zbigniew rial [place] Diastolic (mm Hg) 2018-02-28 18:35:00 Mem o[facility] [place] Heart Rate 2018-02-28 18:35:00 [facility] [place] Temperature Oral (F) 2018-02-28 18:35:00 99.4 F [facility] Respitory Rate 2018-02-28 18:35:00 [facility] [place] Respitory Rate 2018-02-07 14:44:00 [facility] Systolic (mm Hg) 2018-02-07 14:44:00 Zbigniew rial [place] Diastolic (mm Hg) 2018-02-07 14:44:00 Mem o[facility] Respitory Rate 2018-02-07 14:30:00 [facility] [place] Systolic (mm Hg) 2018-02-07 14:30:00 Zbigniew rial [place] Diastolic (mm Hg) 2018-02-07 14:30:00 [facility] o[facility] Ravinder Respitory Rate 2018-02-07 14:15:00 [facility] Systolic (mm Hg) 2018-02-07 14:15:00 Zbigniew rial [place] Diastolic (mm Hg) 2018-02-07 14:15:00 [facility] o[facility] [place] Weight 2018-02-06 21:52:00 [facility] [place] BMI Calculated 2018-02-06 21:52:00 [facility] [place] Height 2018-02-06 21:52:00 170.18 cm [facility] [place] Weight 2018-01-28 04:24:00 [facility] [place] BMI Calculated 2018-01-28 04:24:00 [facility] [place] Height 2018-01-28 04:24:00 170.18 cm [facility] [place] Temperature Oral (F) 2018-01-28 04:24:00 97.5 F [facility] Respitory Rate 2018-01-28 04:24:00 [facility] Heart Rate 2018-01-28 04:24:00 [facility] Systolic (mm Hg) 2018-01-28 04:24:00 Zbigniew rial Rav[place] Diastolic (mm Hg) 2018-01-28 04:24:00 [facility] o[facility] Respitory Rate 2017-12-06 14:22:00 [facility] [place] Systolic (mm Hg) 2017-12-06 14:22:00 Zbigniew rial [place] Diastolic (mm Hg) 2017-12-06 14:22:00 [facility] o[facility] [place] Heart Rate 2017-12-06 14:22:00 [facility] Weight 2017-12-06 13:14:00 [facility] BMI Calculated 2017-12-06 13:14:00 [facility] [place] Height 2017-12-06 13:14:00 170.18 cm [facility] Respitory Rate 2017-12-06 13:14:00 [facility] Heart Rate 2017-12-06 13:14:00 [facility] Temperature Oral (F) 2017-12-06 13:14:00 98.4 F [facility] Systolic (mm Hg) 2017-12-06 13:14:00 Zbigniew rial [place] Diastolic (mm Hg) 2017-12-06 13:14:00 Mem o[facility] [place] Systolic (mm Hg) 2017-11-05 03:42:00 Zbigniew rial [place] Diastolic (mm Hg) 2017-11-05 03:42:00 [facility] o[facility] Rav[facility] Respitory Rate 2017-11-05 03:42:00 [facility] [place] Heart Rate 2017-11-05 03:42:00 [facility] Temperature Oral (F) 2017-11-05 03:42:00 98.3 F [facility] [place] Systolic (mm Hg) 2017-11-05 01:31:00 Zbigniew rial [place] Diastolic (mm Hg) 2017-11-05 01:31:00 Mem orial Rav[facility] Heart Rate 2017-11-05 01:31:00 [facility] [place] Respitory Rate 2017-11-05 01:31:00 [facility] [place] Temperature Oral (F) 2017-11-05 01:31:00 98.4 F [facility] [place] Systolic (mm Hg) 2017-11-05 00:10:00 Zbigniew rial [place] Diastolic (mm Hg) 2017-11-05 00:10:00 Mem o[facility] [place] Heart Rate 2017-11-05 00:10:00 [facility] [place] Respitory Rate 2017-11-05 00:10:00 [facility] BMI Calculated 2017-11-04 23:12:00 [facility] Weight 2017-11-04 23:12:00 [facility] [place] Height 2017-11-04 23:12:00 170.18 cm [facility] [place] Temperature Oral (F) 2017-11-04 23:12:00 97.9 F [facility] Heart Rate 2017-10-21 18:57:00 [facility] Respitory Rate 2017-10-21 18:57:00 [facility] [place] Systolic (mm Hg) 2017-10-21 18:57:00 Zbigniew rial [place] Diastolic (mm Hg) 2017-10-21 18:57:00 [facility] Weight 2017-10-21 16:26:00 [facility] BMI Calculated 2017-10-21 16:26:00 [facility] Height 2017-10-21 16:26:00 170.18 cm [facility] Systolic (mm Hg) 2017-10-21 16:26:00 Zbigniew rial [place] Diastolic (mm Hg) 2017-10-21 16:26:00 [facility] [place] Respitory Rate 2017-10-21 16:26:00 [facility] [place] Heart Rate 2017-10-21 16:26:00 [facility] [place] Temperature Oral (F) 2017-10-21 16:26:00 98.0 F [facility] BMI Calculated 2017-09-13 19:57:00 [facility] [place] Weight 2017-09-13 19:57:00 [facility] [place] Height 2017-09-13 19:57:00 170.18 cm [facility] [place] Respitory Rate 2017-09-13 19:57:00 [facility] [place] Heart Rate 2017-09-13 19:57:00 [facility] [place] Systolic (mm Hg) 2017-09-13 19:57:00 Zbigniew rial [place] Diastolic (mm Hg) 2017-09-13 19:57:00 [facility] o[facility] Temperature Oral (F) 2017-09-13 19:57:00 97.6 F [facility] Systolic (mm Hg) 2017-07-31 17:22:00 Zbigniew rial [place] Diastolic (mm Hg) 2017-07-31 17:22:00 [facility] [place] Respitory Rate 2017-07-31 17:22:00 [facility] Heart Rate 2017-07-31 17:22:00 [facility] [place] Temperature Oral (F) 2017-07-31 17:22:00 97.4 F [facility] Height 2017-07-31 15:37:00 175.18 cm [facility] [place] BMI Calculated 2017-07-31 15:37:00 [facility] [place] Weight 2017-07-31 15:37:00 [facility] [place] Systolic (mm Hg) 2017-07-31 15:37:00 Zbigniew rial [place] Diastolic (mm Hg) 2017-07-31 15:37:00 Mem orial Ravinder Respitory Rate 2017-07-31 15:37:00 [facility] [place] Heart Rate 2017-07-31 15:37:00 [facility] Temperature Oral (F) 2017-07-31 15:37:00 97.2 F [facility] [place] Height 2017-07-12 22:58:00 172.72 cm [facility] Temperature Oral (F) 2017-07-12 22:58:00 98.3 F [facility] Heart Rate 2017-07-12 22:58:00 [facility] [place] Respitory Rate 2017-07-12 22:58:00 [facility] Rav[facility] Systolic (mm Hg) 2017-07-12 22:58:00 Zbigniew rial [place] Diastolic (mm Hg) 2017-07-12 22:58:00 [facility] o[facility] Weight 2017-07-12 22:58:00 [facility] BMI Calculated 2017-07-12 22:58:00 [facility] Respitory Rate 2016-11-17 10:11:00 [facility] [place] Temperature Oral (F) 2016-11-17 10:11:00 98.1 F [facility] Systolic (mm Hg) 2016-11-17 10:11:00 Zbigniew rial [place] Diastolic (mm Hg) 2016-11-17 10:11:00 [facility] [place] Heart Rate 2016-11-17 10:11:00 [facility] Heart Rate 2016-11-17 06:34:00 [facility] Diastolic (mm Hg) 2016-11-17 06:34:00 [facility] o[facility] [place] Systolic (mm Hg) 2016-11-17 06:34:00 Zbigniew rial [facility] Respitory Rate 2016-11-17 06:34:00 [facility] Systolic (mm Hg) 2016-11-17 04:59:00 Zbigniew rial [place] Diastolic (mm Hg) 2016-11-17 04:59:00 [facility] [place] Respitory Rate 2016-11-17 04:59:00 [facility] [place] Heart Rate 2016-11-17 04:59:00 [facility] Temperature Oral (F) 2016-11-17 04:59:00 98.8 F [facility] [place] Height 2016-11-17 04:59:00 170.18 cm [facility] [place] BMI Calculated 2016-11-17 04:59:00 [facility] [place] Weight 2016-11-17 04:59:00 [facility] Procedures Procedure Date / Time Performed Performing Clinician Sourc e Colonoscopy [facility] Ravinder Esophagoduodenostomy [facility] rmann Tonsillectomy [facility] Ravinder Plan of Care Planned Activity Planned Date Details Comments Source Future Scheduled 2022-06-01 COVID-19 VACCINE (#1) [facility] Test 19:10:21 [code = COVID-19 VACCINE (#1)] Future Scheduled 2022-06-01 Hepatitis C screening [facility] Test 19:10:21 (procedure) [code = 874198002] Future Scheduled 2022-06-01 Screening for [facility] Test 19:10:21 malignant neoplasm of cervix (procedure) [code = 339402524] Future Scheduled 2022-06-01 Screening for [facility] Test 19:10:21 Chlamydia trachomatis (procedure) [code = 077318815] Future Scheduled 2022-06-01 [facility] 19:10:21 [code = INFLUENZA VACCINE] Encounters Start End Encounter Admission Attending Care Care Encounter Source Date/Time Date/Time Type Type Clinicians Facility Department ID 2021-11-24 Outpatient [facility] [id number] [place] 14:24:28 [id number] [facility] 2021-09-08 Outpatient [facility] [id number] [place] 13:48:53 [id number] [facility] 2021-09-06 Outpatient [facility] [id number] [place] 12:24:58 [id number] [facility] 2022-04-19 2022-04-19 [id number] [place] 00:00:00 00:00:00 [facility] 2022-04-19 2022-04-19 Outpatient [facility] [id number] [place] 00:00:00 00:00:00 [facility] 2022-04-09 2022-04-09 [facility] [id number] [place] 05:59:49 10:53:26 [facility] 2022-03-08 2022-03-08 [facility] [id number] [place] 07:29:15 09:19:55 [facility] 2021-12-28 2021-12-28 [id number] [place] 07:41:41 13:09:48 [facility] 2021-11-23 2021-11-23 [id number] [place] 07:36:29 07:36:29 [facility] 2021-10-30 2021-10-30 Outpatient [facility] [id number] [place] 07:38:22 10:10:02 [facility] 2021-10-13 2021-10-13 Outpatient [facility] [id number] [place] 07:33:20 11:41:52 [facility] 2021-10-06 2021-10-06 Outpatient MARIA ELENA [facility] [id number] [place] 07:35:11 07:35:11 Y, ARLETH Woodall [facility] 2021-09-28 2021-09-28 [id number] [place] 07:37:46 13:43:46 [facility] 2021-09-08 2021-09-08 Outpatient [facility] [id number] [place] 07:29:33 07:29:33 [facility] 2021-08-31 2021-08-31 [facility] [id number] [place] 05:58:09 11:31:35 [facility] 2021-08-24 2021-08-24 [facility] [id number] [place] 00:00:00 00:00:00 [facility] 2021-08-22 2021-08-22 Outpatient KIM LORA [facility] [id number] [place] 10:08:51 11:29:00 [facility] 2021-08-11 2021-08-11 Outpatient JAUN [facility] [id number] [place] 10:32:34 14:19:57 [facility] 2021-08-09 2021-08-10 Outpatient [facility]LY [facility] [id number] [place] 14:26:00 15:40:00 [facility] 2021-08-10 2021-08-10 Outpatient [facility] [id number] [place] 00:00:00 00:00:00 [facility] 2021-08-10 2021-08-10 Outpatient [facility] [id number] [place] 00:00:00 00:00:00 [facility] 2021-08-09 2021-08-09 Outpatient [facility] [id number] [place] 22:01:43 22:01:49 [facility] 2021-08-09 2021-08-09 Emergency 1 LUCRECIA JORGE [facility] [id number] [place] 14:26:00 14:26:00 [facility] 2021-08-09 2021-08-09 Outpatient LIBRA LEBRON [facility] [id number] [place] 09:53:17 14:25:00 [facility] 2021-08-09 2021-08-09 Outpatient [facility] [id number] [place] 09:40:26 09:42:34 Health 2021-08-09 2021-08-09 Outpatient MARY ANN HARMON [facility] [id number] [place] 08:26:57 09:16:34 [facility] 2021-08-09 2021-08-09 Outpatient LIBRA LEBRON [facility] [id number] [place] 00:00:00 00:00:00 [facility] 2021-08-09 2021-08-09 Outpatient YOHAN, [facility] [id number] [place] 00:00:00 00:00:00 [facility] 2021-08-09 2021-08-09 Outpatient VARELA-FIGU [facility] [id number] [place] 00:00:00 00:00:00 [facility] 2021-08-01 2021-08-01 Outpatient [facility] [id number] [place] 16:02:16 16:05:53 [facility] 2021-08-01 2021-08-01 Outpatient LIBRA LEBRON [facility] [id number] [place] 14:17:41 15:54:29 [facility] 2021-08-01 2021-08-01 Outpatient LIBRA LEBRON [facility] [id number] [place] 00:00:00 00:00:00 [facility] 2021-07-29 2021-07-29 Emergency nullFlavo [place] [id number] [facility] 01:51:24 05:12:00 [facility] 2021-07-29 2021-07-29 Emergency nullFlavo [place] [id number] [facility] 01:51:24 05:12:00 [facility] 2021-07-28 2021-07-28 Outpatient [place], [place] [facility] [id number] 19:51:24 23:12:00 Mk 13 2021-07-28 2021-07-28 Emergency E [place], [place] [id number] [place] 19:51:00 23:12:00 MK 2021-07-28 2021-07-28 [id number] [place] 06:13:43 11:17:32 [facility] 2021-07-26 2021-07-26 Outpatient [facility] [id number] [place] 12:02:17 12:06:24 [facility] 2021-07-26 2021-07-26 Outpatient BERNARDINOLIBRA Morse [facility] [id number] [place] 11:21:58 11:58:19 [facility] 2021-07-26 2021-07-26 Outpatient BERNARDINOLIBRA Morse [facility] [id number] [place] 00:00:00 00:00:00 [facility] 2021-07-25 2021-07-25 [facility] [id number] [place] 14:46:06 16:20:59 SUPRIYA Goodluanne 2021-06-29 2021-06-30 [facility] [id number] [place] 07:37:40 15:15:47 [facility] 2021-06-28 2021-06-28 Outpatient [facility] [id number] [place] 00:00:00 00:00:00 [facility] 2021-06-28 2021-06-28 Outpatient LIBRA LEBRON [facility] [id number] [place] 00:00:00 00:00:00 [facility] 2021-06-21 2021-06-21 Outpatient LIBRA LEBRON [facility] [id number] [place] 00:00:00 00:00:00 [facility] 2021-06-12 2021-06-12 Outpatient LIBRA LEBRON [facility] [id number] [place] 11:03:58 16:03:01 [facility] 2021-06-12 2021-06-12 Outpatient [facility] [id number] [place] 00:00:00 00:00:00 [facility]12 2021-06-12 [facility] [id number] [place] 00:00:00 00:00:00 [facility] 2021-06-08 [facility] [id number] [place] 00:00:00 00:00:00 [facility] 2021-05-26 2021-05-26 [facility] [id number] [place] 07:35:34 11:33:34 [facility] 2021-05-23 2021-05-23 Outpatient LIBRA LEBRON [facility] [id number] [place] 07:36:57 15:47:11 [facility] 2021-05-16 2021-05-16 Outpatient [facility] [id number] [place] 13:26:35 13:38:08 Health 2021-05-16 2021-05-16 Outpatient [facility] [id number] [place] 13:00:52 13:08:52 Health 2021-05-16 2021-05-16 Outpatient LIBRA LEBRON [facility] [id number] [place] 11:46:48 12:54:38 Health 2021-05-16 2021-05-16 Outpatient 3 LIBRA LEBRON [facility] [id number] [place] 11:46:48 12:54:38 Health 2021-05-16 2021-05-16 Outpatient LIBRA LEBRON [facility] [id number] [place] 00:00:00 00:00:00 [facility] 2021-05-06 2021-05-06 [place] nullFlavo [place] [id number] [place] 05:35:16 14:38:00 [facility] 2021-05-06 2021-05-06 Emergency nullFlavo [place] [id number] [place] 05:35:16 14:38:00 [facility] 2021-05-05 2021-05-06 Outpatient Eng, Dylan [facility] [id number] 23:35:16 08:38:00 Getyee 2021-03-08 2021-03-08 [facility] [id number] [place] 07:09:58 17:06:27 RAGAVAN [facility] 2021-02-27 2021-02-27 Outpatient LYSSA, [facility] [id number] [place] 00:00:00 00:00:00 RAGHAV Healt 2020-05-09 2020-05-09 [facility] [id number] [place] 06:56:29 06:56:29 IDANIA Heal 2020-03-04 2020-03-04 Emergency SCOTT, [facility] [id number] [place] 00:00:00 00:00:00 AJ 56Mehul [facility] 2020-02-04 2020-02-04 Outpatient [facility] [id number] [place] 00:00:00 00:00:00 [facility] 2020-01-13 2020-01-13 Emergency MAYAACH, [facility] [id number] [place] 00:00:00 00:00:00 LUIS 301 Method i 2019-12-31 2019-12-31 Outpatient [facility] [id number] [place] 06:38:39 06:38:39 Health 2019-12-07 2019-12-07 Outpatient [facility] [id number] [place] 09:54:08 09:54:08 2019-12-07 2019-12-07 Outpatient [facility] [id number] [place] 09:38:40 09:38:40 2019-12-03 2019-12-03 Outpatient [facility] [id number] [place] 06:45:53 06:45:53 Health 2019-11-23 2019-11-23 Outpatient [facility] [id number] [place] 00:00:00 00:00:00 Health 2019-11-11 2019-11-11 Outpatient [facility] [id number] [place] 00:00:00 00:00:00 2019-11-10 2019-11-10 Outpatient [facility] [id number] [place] 06:58:14 06:58:14 2019-11-04 2019-11-04 Outpatient [facility] [id number] [place] 06:55:10 06:55:10 2019-11-03 2019-11-03 Outpatient [facility] [id number] [place] 00:00:00 00:00:00 2019-10-29 2019-10-29 Outpatient [facility] [id number] [place] 06:53:23 06:53:23 2019-07-07 2019-07-07 Outpatient [facility] [id number] [place] 14:19:29 14:19:29 2019-07-07 2019-07-07 Outpatient [facility] [id number] [place] 00:00:00 00:00:00 2019-07-04 2019-07-04 Outpatient [facility] [id number] [place] 15:19:49 15:19:49 Health 2019-06-30 2019-06-30 Outpatient [facility] [id number] [place] 00:00:00 00:00:00 2019-06-25 2019-06-25 Outpatient [facility] [id number] [place] 15:54:16 15:54:16 Health 2019-06-25 2019-06-25 Outpatient [facility] [id number] [place] 12:02:24 12:02:24 Health 2019-06-25 2019-06-25 Outpatient [facility] [id number] [place] 11:26:03 11:26:03 2019-06-252019-06-25 Outpatient [facility] [id number] [place] 00:00:00 00:00:00 [facility] 2019-06-16 2019-06-16 Outpatient [facility] [id number] [place] 13:25:29 13:25:29 [facility] 2019-05-26 2019-05-26 Outpatient [facility] [id number] [place] 15:13:59 15:13:59 [facility] 2019-05-12 2019-05-12 Outpatient [facility] [id number] [place] 15:33:07 15:33:07 [facility] 2019-05-12 2019-05-12 Outpatient [facility] [id number] [place] 00:00:00 00:00:00 [facility] 2019-05-06 2019-05-06 Outpatient [facility] [id number] [place] 00:00:00 00:00:00 [facility] 2019-04-21 2019-04-21 Outpatient [facility] [id number] [place] 15:54:37 15:54:37 [facility] 2019-04-07 2019-04-07 Outpatient [facility] [id number] [place] 09:03:26 09:03:26 [facility] 2019-04-07 2019-04-07 Outpatient [facility] [id number] [place] 08:50:45 08:50:45 [facility] 2019-04-07 2019-04-07 Outpatient [facility] [id number] [place] 00:00:00 00:00:00 [facility] 2019-03-31 2019-03-31 Outpatient [facility] [id number] [place] 00:00:00 00:00:00 [facility] 2019-03-25 2019-03-25 Outpatient [facility] [id number] [place] 00:00:00 00:00:00 [facility] 2019-02-23 2019-02-23 Outpatient [facility] [id number] [place] 12:16:44 12:16:44 [facility] 2019-02-23 2019-02-23 Outpatient [facility] [id number] [place] 11:11:54 11:11:54 [facility] 2019-02-23 2019-02-23 Outpatient [facility] [id number] [place] 00:00:00 00:00:00 [facility] 2019-02-23 2019-02-23 Outpatient [facility] [id number] [place] 00:00:00 00:00:00 [facility] 2018-05-26 2018-05-26 Outpatient [facility] [id number] [place] 00:00:00 00:00:00 [facility] 2018-05-22 2018-05-22 Outpatient [facility] [id number] [place] 00:00:00 00:00:00 [facility] 2018-04-21 2018-04-21 Outpatient [facility] [id number] [place] 09:45:52 09:45:52 Health 2018-04-18 2018-04-18 Outpatient [facility] [id number] [place] 00:00:00 00:00:00 [facility] 2018-04-17 2018-04-17 Outpatient [facility] [id number] [place] 00:00:00 00:00:00 [facility] 2018-04-04 2018-04-04 Outpatient [facility] [id number] [place] 11:14:53 11:14:53 [facility] 2018-03-24 2018-03-24 Outpatient [facility] [id number] [place] 15:03:53 15:03:53 [facility] 2018-03-17 2018-03-17 Outpatient [facility] [id number] [place] 09:17:25 09:17:25 [facility] 2018-03-14 2018-03-14 Outpatient [facility] [id number] [place] 15:20:36 15:20:36 [facility] 2018-03-14 2018-03-14 Outpatient [facility] [id number] [place] 14:22:11 14:22:11 [facility] 2018-03-14 2018-03-14 Outpatient [facility] [id number] [place] 00:00:00 00:00:00 [facility] 2018-03-13 2018-03-13 Emergency [facility] [id number] [place] 14:47:00 14:47:00 [facility] 2018-02-28 2018-02-28 [place] nullFlavo [place] [id number] [place] 18:22:00 20:46:00 [facility] 2018-02-28 2018-02-28 [place] nullFlavo [place] [id number] [place] 18:22:00 20:46:00 [facility] 2018-02-28 2018-02-28 Outpatient Dylan Duran [facility] [id number] 13:22:00 15:46:00 Denysyemini 11 2018-02-07 2018-02-07 Bedded nullFlavo [facility] [id number] [place] 12:53:00 14:44:00 Outpatient lucas Castellon [address] [facility] 2018-02-07 2018-02-07 Bedded nullFlavo [facility] [id number] [place] 12:53:00 14:44:00 Outpatient lucas Castellon [address] [facility] 2018-02-07 2018-02-07 [place] [id number] 07:53:00 09:44:00 Christopher García 2018-01-28 2018-01-28 Emergency nullFlavo [place] [id number] [place] 04:17:00 06:25:00 [facility] 2018-01-28 2018-01-28 [place] [id number] [place] 04:17:00 06:25:00 [facility] 2018-01-27 2018-01-28 Outpatient Jonathan, [facility] [id number] 23:17:00 01:25:00 Andreina Gandara 2018-01-24 2018-01-25 Out[facility] [id number] [place] 14:54:00 04:59:00 r [place] 08 [facility] 2018-01-24 2018-01-25 Outpatient [facility] [id number] [place] 14:54:00 04:59:00 r Ravinder 08 [facility] 2018-01-24 2018-01-24 [place] [id number] 09:54:00 23:59:00 Christopher Tatum 2018-01-10 2018-01-10 Outpatient [facility] [id number] [place] 00:52:00 04:59:00 r [place] 07 [facility] 2018-01-10 2018-01-10 Outpatient [facility] [id number] [place] 00:52:00 04:59:00 r Ravinder 07 [facility] 2018-01-09 2018-01-09 Outpatient [place] [id number] 19:52:00 23:59:00 Marsha Milan Valenzuela 2017-12-06 2017-12-06 [place] nullFlavo [place] [id number] [place] 13:07:00 15:03:00 [facility] 2017-12-06 2017-12-06 [place]Flavo [place] [id number] [place] 13:07:00 15:03:00 [facility] rhianna 2017-12-06 2017-12-06 Outpatient Radha [facility] [id number] 08:07:00 10:03:00 Obed Chuyita Antunezig 2017-11-04 2017-11-05 [place] nullFlavo [place] [id number] [place] 23:11:00 03:50:00 [facility] 2017-11-04 2017-11-05 [place] nullFl[place] [id number] [place] 23:11:00 03:50:00 [facility] 2017-11-04 2017-11-04 Outpatient Radha, [facility] [id number] 18:11:00 22:50:00 Obed Mary Cleve 2017-10-21 2017-10-21 Emergency nullFlavo [place] [id number] [place] 16:10:00 19:00:00 [facility] 2017-10-21 2017-10-21 Emergency nullFlavo [place] [id number] [place] 16:10:00 19:00:00 [facility] 2017-10-21 2017-10-21 Outpatient Tejas, [facility] [id number] 11:10:00 14:00:00 Abhijit 04 2017-09-13 2017-09-13 [place] nullFlavo [place] [id number] [place] 19:26:00 21:01:00 [facility] 2017-09-13 2017-09-13 Emergency nullFlavo [place] [id number] [place] 19:26:00 21:01:00 [facility] 2017-09-13 2017-09-13 Outpatient Dylan Duran [facility] [id number] 14:26:00 16:01:00 Getyee 03 2017-07-31 2017-07-31 [place] nullFlavo [place] [id number] [place] 15:33:00 17:26:00 [facility] rhianna 2017-07-31 2017-07-31 [place] nullFlavo [place] [id number] [place] 15:33:00 17:26:00 [facility] rhianna 2017-07-31 2017-07-31 Outpatient Que [facility] [id number] 09:33:00 11:26:00 Keon Nicole Clay 2017-07-12 2017-07-12 Emergency nullFlavo [place] [id number] [place] 22:42:00 23:12:00 [facility] rhianna 2017-07-12 2017-07-12 Emergency nullFlavo [place] [id number] [place] 22:42:00 23:12:00 [facility] 2017-07-12 2017-07-12 Outpatient Owen, Dc [facility] [id number] 16:42:00 17:12:00 Laxamana 2016-11-17 2016-11-17 Emergency [facility] [id number] [place] 04:26:00 10:14:[address] [place] [address] [facility] 2016-11-17 2016-11-17 Emergency nullFlavo [facility] [id number] [place] 04:26:00 10:14:[address] [place] [address] [facility] 2016-11-16 2016-11-17 Outpatient CalixtoHOLLY maldonado [facility] [id number] 23:26:00 05:14:00 Juan Jose Manuel 00 Results Test Description Test Time Test Comments Results Result Comments Source SARS-CoV-2 RNA Resp Ql NJ+probe 2021-08-09 19:37:20 Test Item Value Reference Range Interpretation Comme nts Hospitalized? (test code = No 87489-5) ICU? (test code = 22122-7) No Symptomatic as defined by CDC? No (test code = 94497-8) Employed in Healthcare? (test No code = 19285-3) Resident in a congregate care No setting (including nursing homes, residential care for people with intellectual and developmental disabilities, psychiatric treatment facilities, group homes, board and care homes, homeless half-way, foster care or other): (test code = 45159-7) ? (test code = Yes 16720-6) SARS-CoV-2 RNA Resp Ql NOT DETECTED Not Detected The 2 019 novel coronavirus NJ+probe (test code = (SARS -CoV-2) target nucleic 25223-5) acids are not d etected. The VERONICA Argelia SARS-CoV-2/Influenza is a real-time RT-PCR based diagnostic test intended for the qualitative detection of SARS-CoV-2 viral RNA in a nasopharyngeal swab during acute phase of infection. This test was developed and its performance characteristics have been determined by the [facility]. This test has not been cleared or approved by the FDA. This test system has been authorized by the FDA under an Emergency Use Authorization (EUA). This test has been validated in accordance with the FDA's Guidance document "Policy for Coronavirus Disease-2019 Tests During the Public Health Emergency" (Revised October 2019) and is used for clinical purposes. It should not be regarded as investigational or for researchPositive results are indicative of the presence of the identified virus, but do not rule out bacterial infection or co-infection with other pathogens not detected by the test. Clinical correlation with patient history and other diagnostic information is necessary to determine patient infection status. Negative results do not preclude SARS-CoV-2 or Influenza A and B and should not be used as the sole basis for treatment or other patient management decisions. Negative results must be combined with clinical observations, patient history, and/or epidemiological information. If co-infection with influenza A or influenza B virus is suspected in samples with a positive SARS-CoV-2 result, please contact the laboratory so that the sample can be re-tested with a different instrument, if influenza virus detection would change clinical management.This laboratory is certified under the Clinical Laboratory Improvement Amendments (CLIA) as qualified to perform high complexity clinical laboratory testing.HHSHIV 1+2 Ab+HIV1 p24 Ag SerPl Ql [id number] 16:26:09 Test Item Value Reference Range Interpretation Comments HIV 1+2 Ab+HIV1 p24 Ag SerPl Ql [place] NEGATIVE Negative (test code = 91547-7) HHSCulture: [id number] 04:30:24 Test Item Value Reference Range Interpretation Comments Culture: Urine (test code No Growth; Holding = Culture: Urine) [facility]: [id number] 04:30:24 Test Item Value Reference Range Interpretation Comments Culture: Urine (test code No Growth; Holding = Culture: Urine) [facility]: [id number] 04:30:24 Test Item Value Reference Range Interpretation Comments Culture: Urine (test code No Growth; Holding = Culture: Urine) [facility] AND [id number] 02:27:00 Test Item Value Reference Range Interpretation Comments UA Spec Grav (test >=1.030 *ABN*(07/28/21 code = UA Spec Grav) 8:27 PM) [facility] [id number] 02:27:00 Test Item Value Reference Range Interpretation Comments UA pH (test code = UA pH) 6.0 1 5.0-8.0 [facility] [id number] 02:27:00 Test Item Value Reference Range Interpretation Comments UA Protein (test code = UA Protein) 30 mg/dL [facility] [id number] 02:27:00 Test Item Value Reference Range Interpretation Comments UA Glucose (test code Negative (07/28/21 8:27 = UA Glucose) PM) [facility] [id number] 02:27:00 Test Item Value Reference Range Interpretation Comments UA Ketones (test code = UA >=80 mg/dL Ketones) [facility] [id number] 02:27:00 Test Item Value Reference Range Interpretation Comments UA Bili (test code = Moderate *ABN*(07/28/21 UA Bili) 8:27 PM) [facility] [id number] 02:27:00 Test Item Value Reference Range Interpretation Comments UA Blood (test code = Moderate *ABN*(07/28/21 UA Blood) 8:27 PM) [facility] [id number] 02:27:00 Test Item Value Reference Range Interpretation Comments UA Urobilinogen (test code = UA 1.0 0.1-1.0 Urobilinogen) [facility] [id number] 02:27:00 Test Item Value Reference Range Interpretation Comments UA Nitrite (test code Negative (07/28/21 8:27 = UA Nitrite) PM) [facility] [id number] 02:27:00 Test Item Value Reference Range Interpretation Comments UA Leuk Est (test Negative (07/28/21 8:27 code = UA Leuk Est) PM) [facility] [id number] 02:27:00 Test Item Value Reference Range Interpretation Comments UA Sq Epi (test code = UA Sq Moderate /LPF Epi) [facility] [id number] 02:27:00 Test Item Value Reference Range Interpretation Comments UA WBC (test code = UA WBC) 0-2 /HPF [facility] [id number] 02:27:00 Test Item Value Reference Range Interpretation Comments UA RBC (test code = UA None Seen (07/28/21 8:27 RBC) PM) [facility] AND [id number] 02:27:00 Test Item Value Reference Range Interpretation Comments UA Bacteria (test code = UA Moderate /HPF Bacteria) [facility] [employer] [id number] 02:27:00 Test Item Value Reference Range Interpretation Comments ABO/Rh (test code = ABO/Rh) A POS [facility] [employer] [id number] 02:27:00 Test Item Value Reference Range Interpretation Comments Glucose Lvl (test code = Glucose Lvl) 85 70-99 [facility] [employer] [id number] 02:27:00 Test Item Value Reference Range Interpretation Comments BUN (test code = BUN) 10 - [facility] [employer] [id number] 02:27:00 Test Item Value Reference Range Interpretation Comments Creatinine Lvl (test code = Creatinine 0.60 0.50-1.40 Lvl) [facility] [employer] [id number] 02:27:00 Test Item Value Reference Range Interpretation Comments Sodium Lvl (test code = Sodium Lvl) 136 135-145 [facility] [employer] [id number] 02:27:00 Test Item Value Reference Range Interpretation Comments Potassium Lvl (test code = Potassium 4.4 3.5-5.1 Lvl) [facility] AND [id number] 02:27:00 Test Item Value Reference Range Interpretation Comments UA Mucus (test code = UA Mucus) Few /LPF [facility] [employer] [id number] 02:27:00 Test Item Value Reference Range Interpretation Comments Chloride Lvl (test code = Chloride Lvl) 105 95-109 [facility] [employer] [id number] 02:27:00 Test Item Value Reference Range Interpretation Comments CO2 (test code = CO2) 23 24-32 [facility] [employer] [id number] 02:27:00 Test Item Value Reference Range Interpretation Comments AGAP (test code = AGAP) 12.4 10.0-20.0 [facility] [employer] [id number] 02:27:00 Test Item Value Reference Range Interpretation Comments Calcium Lvl (test code = Calcium Lvl) 9.5 8.5-10.5 [facility]2022-02-19 02:27:00 Test Item Value Reference Range Interpretation Comments B/C Ratio (test code = B/C Ratio) 17 1 6-25 [place] [id number] 02:27:00 Test Item Value Reference Range Interpretation Comments Total Protein (test code = Total 9.2 6.4-8.4 Protein) [facility]2022-02-19 02:27:00 Test Item Value Reference Range Interpretation Comments Albumin Lvl (test code = Albumin Lvl) 4.6 3.5-5.0 [facility]2022-02-19 02:27:00 Test Item Value Reference Range Interpretation Comments Globulin (test code = Globulin) 4.6 2.7-4.2 [facility]2022-02-19 02:27:00 Test Item Value Reference Range Interpretation Comments A/G Ratio (test code = A/G Ratio) 1.0 1 0.7-1.6 [facility]2022-02-19 02:27:00 Test Item Value Reference Range Interpretation Comments ALT (test code = ALT) 30 See_Comment [Auto mated message] The system which ge nerated this result transmit uri reference range : <=65. The reference range was not used to interpr et this result as shailesh l/abnormal. [facility] CampusrhiannaANC[facility] AND [id number] 02:27:00 Test Item Value Reference Range Interpretation Comments UA CaOx Renee (test code = UA Moderate /HPF CaOx Renee) [facility]2022-02-19 02:27:00 Test Item Value Reference Range Interpretation Comments AST (test code = AST) 26 See_Comment [Auto mated message] The system which ge nerated this result transmit uri reference range : <=37. The reference range was not used to interpr et this result as shailesh l/abnormal. [facility]2022-02-19 02:27:00 Test Item Value Reference Range Interpretation Comments Alk Phos (test code = Alk Phos) 101 39-136 [facility]2022-02-19 02:27:00 Test Item Value Reference Range Interpretation Comments Bili Total (test code = Bili Total) 0.6 0.2-1.3 [facility]2022-02-19 02:27:00 Test Item Value Reference Range Interpretation Comments eGFR (test code = eGFR) 130 [id number] 02:27:00 Test Item Value Reference Range Interpretation Comments hCG Tot (test code = hCG Tot) 34 [facility] [id number] 02:27:00 Test Item Value Reference Range Interpretation Comments WBC (test code = WBC) 15.8 3.7-10.4 [facility] [id number] 02:27:00 Test Item Value Reference Range Interpretation Comments RBC (test code = RBC) 5.23 4.20-5.40 [facility] [id number] 02:27:00 Test Item Value Reference Range Interpretation Comments Hgb (test code = Hgb) 16.2 12.0-16.0 [facility] [id number] 02:27:00 Test Item Value Reference Range Interpretation Comments Hct (test code = Hct) 46.9 36.0-48.0 [facility] [id number] 02:27:00 Test Item Value Reference Range Interpretation Comments MCV (test code = MCV) 89.7 80.0-98.0 [facility] [id number] 02:27:00 Test Item Value Reference Range Interpretation Comments MCH (test code = MCH) 31.0 pg 27.0-31.0 [facility] C[id number] 02:27:00 Test Item Value Reference Range Interpretation Comments MCHC (test code = MCHC) 34.6 32.0-36.0 [facility] CenterPwfgrrmOMSZWYAIEA4912-25-99 02:27:00 Test Item Value Reference Range Interpretation Comments RDW (test code = RDW) 12.8 11.5-14.5 [facility] CenterYdukvvfDKQPUGWAKH9396-51-83 02:27:00 Test Item Value Reference Range Interpretation Comments Platelet (test code = Platelet) 298 133-450 [facility] CenterDtytzgcKQSVSOYSAM6089-58-05 02:27:00 Test Item Value Reference Range Interpretation Comments MPV (test code = MPV) 9.5 7.4-10.4 [facility] CenterEqfkanoWLCNDVLCPS7653-98-21 02:27:00 Test Item Value Reference Range Interpretation Comments Segs (test code = Segs) 70.6 45.0-75.0 [facility] CenterKlnpxcnXFXAXTRBOF0151-50-11 02:27:00 Test Item Value Reference Range Interpretation Comments Lymphocytes (test code = Lymphocytes) 23.1 20.0-40.0 [facility] CenterPfqaobjBURJRDZAMN5193-49-08 02:27:00 Test Item Value Reference Range Interpretation Comments Monocytes (test code = Monocytes) 5.6 2.0-12.0 [facility] CenterToggdgxLIDSELKZZM3222-24-60 02:27:00 Test Item Value Reference Range Interpretation Comments Eosinophils (test code = 0.2 See_Comment [A utomated message] The Eosinophils) system which ge nerated this result tra nsmitted reference range : <=4.0. The reference r kavon was not used to int erpret this result as normal/abnormal . [facility] CenterLpjvfkyIYMJGGBKDE8009-38-14 02:27:00 Test Item Value Reference Range Interpretation Comments Basophils (test code = 0.5 See_Comment [Aut omated message] The Basophils) system which ge nerated this result tra nsmitted reference range : <=1.0. The reference r kavon was not used to int erpret this result as normal/abnormal . [facility] [id number] 02:27:00 Test Item Value Reference Range Interpretation Comments ABO/Rh (test code = ABO/Rh) A POS [facility] CenterZgmwovyFBWFWQRZYH7265-94-61 02:27:00 Test Item Value Reference Range Interpretation Comments Neutrophils # (test code = Neutrophils 11.1 1.5-8.1 #) [facility] CenterMvqnqccOZDQMLOBDI1627-83-08 02:27:00 Test Item Value Reference Range Interpretation Comments Lymphocytes # (test code = Lymphocytes 3.6 1.0-5.5 #) [facility] CenterZnieoadHVLDZLLCOU7134-29-15 02:27:00 Test Item Value Reference Range Interpretation Comments Monocytes # (test code 0.9 See_Comment [Aut omated message] The = Monocytes #) system which generated this result tra nsmitted reference range : <=0.8. The reference r kavon was not used to int erpret this result as normal/abnormal . [facility] CenterAgtcnrrYFYDALUOEH3877-84-06 02:27:00 Test Item Value Reference Range Interpretation Comments Eosinophils # (test code 0.0 See_Comment [A utomated message] The = Eosinophils #) system whic h generated this result tra nsmitted reference range : <=0.5. The reference r kavon was not used to int erpret this result as normal/abnormal . [facility] CampusKruwpesCVDYDGEUZA6031-90-24 02:27:00 Test Item Value Reference Range Interpretation Comments Basophils # (test code 0.1 See_Comment [Aut omated message] The = Basophils #) system which generated this result tra nsmitted reference range : <=0.2. The reference r kavon was not used to int erpret this result as normal/abnormal . [facility] AND [id number] 02:27:00 Test Item Value Reference Range Interpretation Comments UA Color (test code = Marisa *ABN*(07/28/21 UA Color) 8:27 PM) [facility] AND [id number] 02:27:00 Test Item Value Reference Range Interpretation Comments UA Turbidity (test code Slight Cloudy = UA Turbidity) (07/28/21 8:27 PM) [facility] AND [id number] 02:27:00 Test Item Value Reference Range Interpretation Comments UA Spec Grav (test >=1.030 *ABN*(07/28/21 code = UA Spec Grav) 8:27 PM) [facility] AND [id number] 02:27:00 Test Item Value Reference Range Interpretation Comments UA pH (test code = UA pH) 6.0 1 5.0-8.0 [facility] AND [id number] 02:27:00 Test Item Value Reference Range Interpretation Comments UA Protein (test code = UA Protein) 30 mg/dL [facility] [id number] 02:27:00 Test Item Value Reference Range Interpretation Comments Glucose Lvl (test code = Glucose Lvl) 85 70-99 [facility] AND [id number] 02:27:00 Test Item Value Reference Range Interpretation Comments UA Glucose (test code Negative (07/28/21 8:27 = UA Glucose) PM) [facility] AND [id number] 02:27:00 Test Item Value Reference Range Interpretation Comments UA Ketones (test code = UA >=80 mg/dL Ketones) [facility] AND [id number] 02:27:00 Test Item Value Reference Range Interpretation Comments UA Bili (test code = Moderate *ABN*(07/28/21 UA Bili) 8:27 PM) [facility] [id number] 02:27:00 Test Item Value Reference Range Interpretation Comments UA Blood (test code = Moderate *ABN*(07/28/21 UA Blood) 8:27 PM) [facility] [id number] 02:27:00 Test Item Value Reference Range Interpretation Comments UA Urobilinogen (test code = UA 1.0 0.1-1.0 Urobilinogen) [facility] [id number] 02:27:00 Test Item Value Reference Range Interpretation Comments UA Nitrite (test code Negative (07/28/21 8:27 = UA Nitrite) PM) [facility] [id number] 02:27:00 Test Item Value Reference Range Interpretation Comments UA Leuk Est (test Negative (07/28/21 8:27 code = UA Leuk Est) PM) [facility] [id number] 02:27:00 Test Item Value Reference Range Interpretation Comments UA Sq Epi (test code = UA Sq Moderate /LPF Epi) [facility] [id number] 02:27:00 Test Item Value Reference Range Interpretation Comments UA WBC (test code = UA WBC) 0-2 /HPF [facility] [id number] 02:27:00 Test Item Value Reference Range Interpretation Comments UA RBC (test code = UA None Seen (07/28/21 8:27 RBC) PM) [facility] [id number] 02:27:00 Test Item Value Reference Range Interpretation Comments BUN (test code = BUN) 10 12-29 [facility] [id number] 02:27:00 Test Item Value Reference Range Interpretation Comments UA Bacteria (test code = UA Moderate /HPF Bacteria) [facility] [id number] 02:27:00 Test Item Value Reference Range Interpretation Comments UA Mucus (test code = UA Mucus) Few /LPF [facility] [id number] 02:27:00 Test Item Value Reference Range Interpretation Comments UA CaOx Renee (test code = UA Moderate /HPF CaOx Renee) [facility] [id number] 02:27:00 Test Item Value Reference Range Interpretation Comments Creatinine Lvl (test code = Creatinine 0.60 0.50-1.40 Lvl) [facility]2022-02-19 02:27:00 Test Item Value Reference Range Interpretation Comments Sodium Lvl (test code = Sodium Lvl) 136 135-145 [place] [id number] 02:27:00 Test Item Value Reference Range Interpretation Comments Potassium Lvl (test code = Potassium 4.4 3.5-5.1 Lvl) [facility]2022-02-19 02:27:00 Test Item Value Reference Range Interpretation Comments Chloride Lvl (test code = Chloride Lvl) 105 95-109 [place] [id number] 02:27:00 Test Item Value Reference Range Interpretation Comments CO2 (test code = CO2) 23 24-32 [place] 088362-02-19 02:27:00 Test Item Value Reference Range Interpretation Comments AGAP (test code = AGAP) 12.4 10.0-20.0 [place] 088362-02-19 02:27:00 Test Item Value Reference Range Interpretation Comments Calcium Lvl (test code = Calcium Lvl) 9.5 8.5-10.5 [facility]2022-02-19 02:27:00 Test Item Value Reference Range Interpretation Comments B/C Ratio (test code = B/C Ratio) 17 1 6-25 [place] 088362-02-19 02:27:00 Test Item Value Reference Range Interpretation Comments Total Protein (test code = Total 9.2 6.4-8.4 Protein) [facility]2022-02-19 02:27:00 Test Item Value Reference Range Interpretation Comments Albumin Lvl (test code = Albumin Lvl) 4.6 3.5-5.0 [place] 088362-02-19 02:27:00 Test Item Value Reference Range Interpretation Comments Globulin (test code = Globulin) 4.6 2.7-4.2 [place] 088362-02-19 02:27:00 Test Item Value Reference Range Interpretation Comments A/G Ratio (test code = A/G Ratio) 1.0 1 0.7-1.6 [place] 088362-02-19 02:27:00 Test Item Value Reference Range Interpretation Comments ALT (test code = ALT) 30 See_Comment [Auto mated message] The system which ge nerated this result transmit uri reference range : <=65. The reference range was not used to interpr et this result as shailesh l/abnormal. [facility] [id number] 02:27:00 Test Item Value Reference Range Interpretation Comments AST (test code = AST) 26 See_Comment [Auto mated message] The system which ge nerated this result transmit uri reference range : <=37. The reference range was not used to interpr et this result as shailesh l/abnormal. [facility] [id number] 02:27:00 Test Item Value Reference Range Interpretation Comments Alk Phos (test code = Alk Phos) 101 39-136 [facility] [id number] 02:27:00 Test Item Value Reference Range Interpretation Comments Bili Total (test code = Bili Total) 0.6 0.2-1.3 [facility] [id number] 02:27:00 Test Item Value Reference Range Interpretation Comments eGFR (test code = eGFR) 130 [facility]UvxymheQWIEBILEYQRIZ2471-18-20 02:27:00 Test Item Value Reference Range Interpretation Comments hCG Tot (test code = hCG Tot) 34 [facility] CampusXgdjwxbRMZDGEWCWD8462-43-41 02:27:00 Test Item Value Reference Range Interpretation Comments WBC (test code = WBC) 15.8 3.7-10.4 [facility] CampusKznegglEUKVNCIMWM5876-45-91 02:27:00 Test Item Value Reference Range Interpretation Comments RBC (test code = RBC) 5.23 4.20-5.40 [facility] CampusBkqqllxJGGGCQWRVT5687-57-35 02:27:00 Test Item Value Reference Range Interpretation Comments Hgb (test code = Hgb) 16.2 12.0-16.0 [facility] CampusEecqskzEGGEUABYPR3110-89-32 02:27:00 Test Item Value Reference Range Interpretation Comments Hct (test code = Hct) 46.9 36.0-48.0 [place] 139822-02-19 02:27:00 Test Item Value Reference Range Interpretation Comments MCV (test code = MCV) 89.7 80.0-98.0 [facility] [id number] 02:27:00 Test Item Value Reference Range Interpretation Comments MCH (test code = MCH) 31.0 pg 27.0-31.0 [facility] CenterNpbriwyMSMFJAUIXZ5790-50-98 02:27:00 Test Item Value Reference Range Interpretation Comments MCHC (test code = MCHC) 34.6 32.0-36.0 [facility] CenterTmgqyztOOOZBNKLFR5699-94-02 02:27:00 Test Item Value Reference Range Interpretation Comments RDW (test code = RDW) 12.8 11.5-14.5 [place] 139822-02-19 02:27:00 Test Item Value Reference Range Interpretation Comments Platelet (test code = Platelet) 298 133-450 [facility] CenterIsqbzguNYFRRZJFHR5579-51-20 02:27:00 Test Item Value Reference Range Interpretation Comments MPV (test code = MPV) 9.5 7.4-10.4 [place] 139822-02-19 02:27:00 Test Item Value Reference Range Interpretation Comments Segs (test code = Segs) 70.6 45.0-75.0 [place] 139822-02-19 02:27:00 Test Item Value Reference Range Interpretation Comments Lymphocytes (test code = Lymphocytes) 23.1 20.0-40.0 [facility] CenterIqyrtmbDPCDIDZUZB0504-97-41 02:27:00 Test Item Value Reference Range Interpretation Comments Monocytes (test code = Monocytes) 5.6 2.0-12.0 [facility] CenterOxfzbalMDRHPDOPRS3099-03-27 02:27:00 Test Item Value Reference Range Interpretation Comments Eosinophils (test code = 0.2 See_Comment [A utomated message] The Eosinophils) system which ge nerated this result tra nsmitted reference range : <=4.0. The reference r kavon was not used to int erpret this result as normal/abnormal . [place] 139822-02-19 02:27:00 Test Item Value Reference Range Interpretation Comments Basophils (test code = 0.5 See_Comment [Aut omated message] The Basophils) system which ge nerated this result tra nsmitted reference range : <=1.0. The reference r kavon was not used to int erpret this result as normal/abnormal . [facility] CenterYzqudyaYPYMTJWRWL0149-26-38 02:27:00 Test Item Value Reference Range Interpretation Comments Neutrophils # (test code = Neutrophils 11.1 1.5-8.1 #) [facility] CenterAytqrggRFGQMAZSXU7834-27-46 02:27:00 Test Item Value Reference Range Interpretation Comments Lymphocytes # (test code = Lymphocytes 3.6 1.0-5.5 #) [facility] CenterDyluzokPDWHOHVROI4485-89-87 02:27:00 Test Item Value Reference Range Interpretation Comments Monocytes # (test code 0.9 See_Comment [Aut omated message] The = Monocytes #) system which generated this result tra nsmitted reference range : <=0.8. The reference r kavon was not used to int erpret this result as normal/abnormal . [facility] CenterEtjklslHJRQGVELVD3983-36-74 02:27:00 Test Item Value Reference Range Interpretation Comments Eosinophils # (test code 0.0 See_Comment [A utomated message] The = Eosinophils #) system whic h generated this result tra nsmitted reference range : <=0.5. The reference r kavon was not used to int erpret this result as normal/abnormal . [facility] CenterIftdntsXQVSNHDDOJ5350-78-81 02:27:00 Test Item Value Reference Range Interpretation Comments Basophils # (test code 0.1 See_Comment [Aut omated message] The = Basophils #) system which generated this result tra nsmitted reference range : <=0.2. The reference r kavon was not used to int erpret this result as normal/abnormal . [facility] AND [id number] 02:27:00 Test Item Value Reference Range Interpretation Comments UA Color (test code = Marisa *ABN*(07/28/21 UA Color) 8:27 PM) [facility] AND [id number] 02:27:00 Test Item Value Reference Range Interpretation Comments UA Turbidity (test code Slight Cloudy = UA Turbidity) (07/28/21 8:27 PM) [facility] AND [id number] 02:27:00 Test Item Value Reference Range Interpretation Comments UA Spec Grav (test >=1.030 *ABN*(07/28/21 code = UA Spec Grav) 8:27 PM) [facility] AND [id number] 02:27:00 Test Item Value Reference Range Interpretation Comments UA pH (test code = UA pH) 6.0 1 5.0-8.0 [facility] AND [id number] 02:27:00 Test Item Value Reference Range Interpretation Comments UA Protein (test code = UA Protein) 30 mg/dL [facility] [id number] 02:27:00 Test Item Value Reference Range Interpretation Comments UA Glucose (test code Negative (07/28/21 8:27 = UA Glucose) PM) [facility] [id number] 02:27:00 Test Item Value Reference Range Interpretation Comments UA Ketones (test code = UA >=80 mg/dL Ketones) [facility] [id number] 02:27:00 Test Item Value Reference Range Interpretation Comments UA Bili (test code = Moderate *ABN*(07/28/21 UA Bili) 8:27 PM) [facility] [id number] 02:27:00 Test Item Value Reference Range Interpretation Comments UA Blood (test code = Moderate *ABN*(07/28/21 UA Blood) 8:27 PM) [facility] [id number] 02:27:00 Test Item Value Reference Range Interpretation Comments UA Urobilinogen (test code = UA 1.0 0.1-1.0 Urobilinogen) [facility] [id number] 02:27:00 Test Item Value Reference Range Interpretation Comments UA Nitrite (test code Negative (07/28/21 8:27 = UA Nitrite) PM) [facility] [id number] 02:27:00 Test Item Value Reference Range Interpretation Comments UA Leuk Est (test Negative (07/28/21 8:27 code = UA Leuk Est) PM) [facility] [id number] 02:27:00 Test Item Value Reference Range Interpretation Comments UA Sq Epi (test code = UA Sq Moderate /LPF Epi) [facility] [id number] 02:27:00 Test Item Value Reference Range Interpretation Comments UA WBC (test code = UA WBC) 0-2 /HPF [facility] [id number] 02:27:00 Test Item Value Reference Range Interpretation Comments UA RBC (test code = UA None Seen (07/28/21 8:27 RBC) PM) [facility] [id number] 02:27:00 Test Item Value Reference Range Interpretation Comments UA Bacteria (test code = UA Moderate /HPF Bacteria) [facility] AND [id number] 02:27:00 Test Item Value Reference Range Interpretation Comments UA Mucus (test code = UA Mucus) Few /LPF [facility] AND [id number] 02:27:00 Test Item Value Reference Range Interpretation Comments UA CaOx Renee (test code = UA Moderate /HPF CaOx Renee) [facility] [id number] 02:27:00 Test Item Value Reference Range Interpretation Comments ABO/Rh (test code = ABO/Rh) A POS [facility] [id number] 02:27:00 Test Item Value Reference Range Interpretation Comments Glucose Lvl (test code = Glucose Lvl) 85 70-99 [facility]2022-02-19 02:27:00 Test Item Value Reference Range Interpretation Comments BUN (test code = BUN) 10 7-22 [facility]2022-02-19 02:27:00 Test Item Value Reference Range Interpretation Comments Creatinine Lvl (test code = Creatinine 0.60 0.50-1.40 Lvl) [facility]2022-02-19 02:27:00 Test Item Value Reference Range Interpretation Comments Sodium Lvl (test code = Sodium Lvl) 136 135-145 [facility] [id number] 02:27:00 Test Item Value Reference Range Interpretation Comments Potassium Lvl (test code = Potassium 4.4 3.5-5.1 Lvl) [facility]2022-02-19 02:27:00 Test Item Value Reference Range Interpretation Comments Chloride Lvl (test code = Chloride Lvl) 105 95-109 [facility] [id number] 02:27:00 Test Item Value Reference Range Interpretation Comments CO2 (test code = CO2) 23 24-32 [facility]2022-02-19 02:27:00 Test Item Value Reference Range Interpretation Comments AGAP (test code = AGAP) 12.4 10.0-20.0 [facility]2022-02-19 02:27:00 Test Item Value Reference Range Interpretation Comments Calcium Lvl (test code = Calcium Lvl) 9.5 8.5-10.5 [facility]2022-02-19 02:27:00 Test Item Value Reference Range Interpretation Comments B/C Ratio (test code = B/C Ratio) 17 1 6-25 [facility] [id number] 02:27:00 Test Item Value Reference Range Interpretation Comments Total Protein (test code = Total 9.2 6.4-8.4 Protein) [facility]2022-02-19 02:27:00 Test Item Value Reference Range Interpretation Comments Albumin Lvl (test code = Albumin Lvl) 4.6 3.5-5.0 [facility] [id number] 02:27:00 Test Item Value Reference Range Interpretation Comments Globulin (test code = Globulin) 4.6 2.7-4.2 [facility] [id number] 02:27:00 Test Item Value Reference Range Interpretation Comments A/G Ratio (test code = A/G Ratio) 1.0 1 0.7-1.6 [facility] CampusMevvyATRIUM HEALTH KINGS [id number] 02:27:00 Test Item Value Reference Range Interpretation Comments ALT (test code = ALT) 30 See_Comment [Auto mated message] The system which ge nerated this result transmit uri reference range : <=65. The reference range was not used to interpr et this result as shailesh l/abnormal. [facility] [id number] 02:27:00 Test Item Value Reference Range Interpretation Comments AST (test code = AST) 26 See_Comment [Auto mated message] The system which ge nerated this result transmit uri reference range : <=37. The reference range was not used to interpr et this result as shailesh l/abnormal. [facility] [id number] 02:27:00 Test Item Value Reference Range Interpretation Comments Alk Phos (test code = Alk Phos) 101 39-136 [facility] [id number] 02:27:00 Test Item Value Reference Range Interpretation Comments Bili Total (test code = Bili Total) 0.6 0.2-1.3 [facility] [id number] 02:27:00 Test Item Value Reference Range Interpretation Comments eGFR (test code = eGFR) 130 [facility] CenterYjvhvjsENUTFQDMSVSSZ0444-60-93 02:27:00 Test Item Value Reference Range Interpretation Comments hCG Tot (test code = hCG Tot) 34 [facility] CenterMsxehrzWCRWAFQDJL6064-52-71 02:27:00 Test Item Value Reference Range Interpretation Comments WBC (test code = WBC) 15.8 3.7-10.4 [facility] CenterYxwyarxVTIYDNCQVM0743-79-26 02:27:00 Test Item Value Reference Range Interpretation Comments RBC (test code = RBC) 5.23 4.20-5.40 [facility] CenterJlodnlhRRHGQWDWWM7616-26-37 02:27:00 Test Item Value Reference Range Interpretation Comments Hgb (test code = Hgb) 16.2 12.0-16.0 [facility] CenterMdvajmhGSYMERTQSZ4776-39-53 02:27:00 Test Item Value Reference Range Interpretation Comments Hct (test code = Hct) 46.9 36.0-48.0 [facility] CenterNlxucgoNQYVMNGIDO9393-63-34 02:27:00 Test Item Value Reference Range Interpretation Comments MCV (test code = MCV) 89.7 80.0-98.0 [facility] CenterIblcapiWYNQLDTYQA8486-77-72 02:27:00 Test Item Value Reference Range Interpretation Comments MCH (test code = MCH) 31.0 pg 27.0-31.0 [facility] CenterFmyblelLFDJZSCHKY9246-61-02 02:27:00 Test Item Value Reference Range Interpretation Comments MCHC (test code = MCHC) 34.6 32.0-36.0 [facility] CenterKavrorfOBECTWDBJH8717-58-68 02:27:00 Test Item Value Reference Range Interpretation Comments RDW (test code = RDW) 12.8 11.5-14.5 [facility] CenterKpvvxpmAJTRQMILTB9915-54-42 02:27:00 Test Item Value Reference Range Interpretation Comments Platelet (test code = Platelet) 298 133-450 [facility] CenterJlgvddjHZKOULMELF0820-54-75 02:27:00 Test Item Value Reference Range Interpretation Comments MPV (test code = MPV) 9.5 7.4-10.4 [facility] [id number] 02:27:00 Test Item Value Reference Range Interpretation Comments Segs (test code = Segs) 70.6 45.0-75.0 [facility] CenterYthblviYXRYVKTPZD8888-03-83 02:27:00 Test Item Value Reference Range Interpretation Comments Lymphocytes (test code = Lymphocytes) 23.1 20.0-40.0 [facility] CenterIdklfksANIACTBYWT3809-96-21 02:27:00 Test Item Value Reference Range Interpretation Comments Monocytes (test code = Monocytes) 5.6 2.0-12.0 [place] 139822-02-19 02:27:00 Test Item Value Reference Range Interpretation Comments Eosinophils (test code = 0.2 See_Comment [A utomated message] The Eosinophils) system which ge nerated this result tra nsmitted reference range : <=4.0. The reference r kavon was not used to int erpret this result as normal/abnormal . [place] 139822-02-19 02:27:00 Test Item Value Reference Range Interpretation Comments Basophils (test code = 0.5 See_Comment [Aut omated message] The Basophils) system which ge nerated this result tra nsmitted reference range : <=1.0. The reference r kavon was not used to int erpret this result as normal/abnormal . [place] 139822-02-19 02:27:00 Test Item Value Reference Range Interpretation Comments Neutrophils # (test code = Neutrophils 11.1 1.5-8.1 #) [place] 139822-02-19 02:27:00 Test Item Value Reference Range Interpretation Comments Lymphocytes # (test code = Lymphocytes 3.6 1.0-5.5 #) [place] 46982-02-19 02:27:00 Test Item Value Reference Range Interpretation Comments Monocytes # (test code 0.9 See_Comment [Aut omated message] The = Monocytes #) system which generated this result tra nsmitted reference range : <=0.8. The reference r kavon was not used to int erpret this result as normal/abnormal . [place] 139822-02-19 02:27:00 Test Item Value Reference Range Interpretation Comments Eosinophils # (test code 0.0 See_Comment [A utomated message] The = Eosinophils #) system whic h generated this result tra nsmitted reference range : <=0.5. The reference r kavon was not used to int erpret this result as normal/abnormal . [place] 139822-02-19 02:27:00 Test Item Value Reference Range Interpretation Comments Basophils # (test code 0.1 See_Comment [Aut omated message] The = Basophils #) system which generated this result tra nsmitted reference range : <=0.2. The reference r kavon was not used to int erpret this result as normal/abnormal . [facility] AND [id number] 02:27:00 Test Item Value Reference Range Interpretation Comments UA Color (test code = Marisa *ABN*(07/28/21 UA Color) 8:27 PM) [facility] AND [id number] 02:27:00 Test Item Value Reference Range Interpretation Comments UA Turbidity (test code Slight Cloudy = UA Turbidity) (07/28/21 8:27 PM) [facility] p[facility] Ag SerPl Ql [id number] 21:17:52 Test Item Value Reference Range Interpretation Comments HIV 1+2 Ab+HIV1 p24 Ag SerPl Ql IA NEGATIVE Negative (test code = 33574-7) HHSCulture: [id number] 22:30:53 Test Item Value Reference Range Interpretation Comments Culture: Urine (test 50,000 - 100,000 code = Culture: Urine) CFU/mL Skin [facility] [id number] 22:30:53 Test Item Value Reference Range Interpretation Comments Culture: Urine (test 50,000 - 100,000 code = Culture: Urine) CFU/mL [facility]: [id number] 22:30:53 Test Item Value Reference Range Interpretation Comments Culture: Urine (test 50,000 - 100,000 code = Culture: Urine) CFU/mL Skin Rachel [facility] AND [id number] 18:50:00 Test Item Value Reference Range Interpretation Comments UA Spec Grav (test code = UA Spec 1.025 1 Grav) [facility] AND [id number] 18:50:00 Test Item Value Reference Range Interpretation Comments UA Turbidity (test code = Clear (02/28/18 1:50 UA Turbidity) PM) [facility] AND [id number] 18:50:00 Test Item Value Reference Range Interpretation Comments UA Color (test code = Yellow *NA*(02/28/18 UA Color) 1:50 PM) [facility] AND [id number] 18:50:00 Test Item Value Reference Range Interpretation Comments UA Leuk Est (test code Trace *ABN*(02/28/18 = UA Leuk Est) 1:50 PM) [facility] AND [id number] 18:50:00 Test Item Value Reference Range Interpretation Comments UA Nitrite (test code Negative (02/28/18 1:50 = UA Nitrite) PM) [facility] AND [id number] 18:50:00 Test Item Value Reference Range Interpretation Comments UA Urobilinogen (test code = UA 0.2 0.1-1.0 Urobilinogen) [facility] AND [id number] 18:50:00 Test Item Value Reference Range Interpretation Comments UA Bili (test code = Negative *NA*(02/28/18 UA Bili) 1:50 PM) [facility] AND [id number] 18:50:00 Test Item Value Reference Range Interpretation Comments UA Blood (test code = Negative (02/28/18 1:50 UA Blood) PM) [facility] AND [id number] 18:50:00 Test Item Value Reference Range Interpretation Comments UA Ketones (test code = Trace *ABN*(02/28/18 UA Ketones) 1:50 PM) [facility] AND [id number] 18:50:00 Test Item Value Reference Range Interpretation Comments UA Glucose (test code Negative (02/28/18 1:50 = UA Glucose) PM) [facility] AND [id number] 18:50:00 Test Item Value Reference Range Interpretation Comments UA Protein (test code Negative (02/28/18 1:50 = UA Protein) PM) [facility] AND [id number] 18:50:00 Test Item Value Reference Range Interpretation Comments UA pH (test code = UA pH) 6.0 1 5.0-8.0 [facility] AND [id number] 18:50:00 Test Item Value Reference Range Interpretation Comments UA Mucus (test code = UA Mucus) Few /LPF [facility] AND [id number] 18:50:00 Test Item Value Reference Range Interpretation Comments UA Bacteria (test code = UA Few /HPF Bacteria) [facility] AND [id number] 18:50:00 Test Item Value Reference Range Interpretation Comments UA RBC (test code = 0-2 /HPF See_Comment [Automa uri message] The UA RBC) system which ge nerated this result tra nsmitted reference range : <=2. The reference range was not used to interpr et this result as shailesh l/abnormal. [facility] [id number] 18:50:00 Test Item Value Reference Range Interpretation Comments UA WBC (test code = UA WBC) 3-5 /HPF [facility] [id number] 18:50:00 Test Item Value Reference Range Interpretation Comments UA Sq Epi (test code = UA Sq Epi) Few /LPF [facility] [id number] 18:50:00 Test Item Value Reference Range Interpretation Comments U Preg (test code = U Negative (02/28/18 1:50 Preg) PM) [facility] AND [id number] 18:50:00 Test Item Value Reference Range Interpretation Comments UA Spec Grav (test code = UA Spec 1.025 1 Grav) [facility] AND [id number] 18:50:00 Test Item Value Reference Range Interpretation Comments UA Turbidity (test code = Clear (02/28/18 1:50 UA Turbidity) PM) [facility] [id number] 18:50:00 Test Item Value Reference Range Interpretation Comments UA Color (test code = Yellow *NA*(02/28/18 UA Color) 1:50 PM) [facility] AND [id number] 18:50:00 Test Item Value Reference Range Interpretation Comments UA Leuk Est (test code Trace *ABN*(02/28/18 = UA Leuk Est) 1:50 PM) [facility] AND [id number] 18:50:00 Test Item Value Reference Range Interpretation Comments UA Nitrite (test code Negative (02/28/18 1:50 = UA Nitrite) PM) [facility] [id number] 18:50:00 Test Item Value Reference Range Interpretation Comments UA Urobilinogen (test code = UA 0.2 0.1-1.0 Urobilinogen) [facility] [id number] 18:50:00 Test Item Value Reference Range Interpretation Comments UA Bili (test code = Negative *NA*(02/28/18 UA Bili) 1:50 PM) [facility] [id number] 18:50:00 Test Item Value Reference Range Interpretation Comments UA Blood (test code = Negative (02/28/18 1:50 UA Blood) PM) [facility] [id number] 18:50:00 Test Item Value Reference Range Interpretation Comments UA Ketones (test code = Trace *ABN*(02/28/18 UA Ketones) 1:50 PM) [facility] [id number] 18:50:00 Test Item Value Reference Range Interpretation Comments UA Glucose (test code Negative (02/28/18 1:50 = UA Glucose) PM) [facility] [id number] 18:50:00 Test Item Value Reference Range Interpretation Comments UA Protein (test code Negative (02/28/18 1:50 = UA Protein) PM) [facility] [id number] 18:50:00 Test Item Value Reference Range Interpretation Comments UA pH (test code = UA pH) 6.0 1 5.0-8.0 [facility] [id number] 18:50:00 Test Item Value Reference Range Interpretation Comments UA Mucus (test code = UA Mucus) Few /LPF [facility] [id number] 18:50:00 Test Item Value Reference Range Interpretation Comments UA Bacteria (test code = UA Few /HPF Bacteria) [facility] [id number] 18:50:00 Test Item Value Reference Range Interpretation Comments UA RBC (test code = 0-2 /HPF See_Comment [Automa uri message] The UA RBC) system which ge nerated this result tra nsmitted reference range : <=2. The reference range was not used to interpr et this result as shailesh l/abnormal. [facility] [id number] 18:50:00 Test Item Value Reference Range Interpretation Comments UA WBC (test code = UA WBC) 3-5 /HPF [facility] [id number] 18:50:00 Test Item Value Reference Range Interpretation Comments UA Sq Epi (test code = UA Sq Epi) Few /LPF [facility] [id number] 18:50:00 Test Item Value Reference Range Interpretation Comments U Preg (test code = U Negative (02/28/18 1:50 Preg) PM) [facility] AND [id number] 18:50:00 Test Item Value Reference Range Interpretation Comments UA Spec Grav (test code = UA Spec 1.025 1 Grav) [facility] AND [id number] 18:50:00 Test Item Value Reference Range Interpretation Comments UA Turbidity (test code = Clear (02/28/18 1:50 UA Turbidity) PM) [facility] AND [id number] 18:50:00 Test Item Value Reference Range Interpretation Comments UA Color (test code = Yellow *NA*(02/28/18 UA Color) 1:50 PM) [facility] AND [id number] 18:50:00 Test Item Value Reference Range Interpretation Comments UA Leuk Est (test code Trace *ABN*(02/28/18 = UA Leuk Est) 1:50 PM) [facility] AND [id number] 18:50:00 Test Item Value Reference Range Interpretation Comments UA Nitrite (test code Negative (02/28/18 1:50 = UA Nitrite) PM) [facility] AND [id number] 18:50:00 Test Item Value Reference Range Interpretation Comments UA Urobilinogen (test code = UA 0.2 0.1-1.0 Urobilinogen) [facility] AND [id number] 18:50:00 Test Item Value Reference Range Interpretation Comments UA Bili (test code = Negative *NA*(02/28/18 UA Bili) 1:50 PM) [facility] AND [id number] 18:50:00 Test Item Value Reference Range Interpretation Comments UA Blood (test code = Negative (02/28/18 1:50 UA Blood) PM) [facility] AND [id number] 18:50:00 Test Item Value Reference Range Interpretation Comments UA Ketones (test code = Trace *ABN*(02/28/18 UA Ketones) 1:50 PM) [facility] AND [id number] 18:50:00 Test Item Value Reference Range Interpretation Comments UA Glucose (test code Negative (02/28/18 1:50 = UA Glucose) PM) [facility] AND [id number] 18:50:00 Test Item Value Reference Range Interpretation Comments UA Protein (test code Negative (02/28/18 1:50 = UA Protein) PM) [facility] AND [id number] 18:50:00 Test Item Value Reference Range Interpretation Comments UA pH (test code = UA pH) 6.0 1 5.0-8.0 [facility] [id number] 18:50:00 Test Item Value Reference Range Interpretation Comments UA Mucus (test code = UA Mucus) Few /LPF [facility] [id number] 18:50:00 Test Item Value Reference Range Interpretation Comments UA Bacteria (test code = UA Few /HPF Bacteria) [facility] [id number] 18:50:00 Test Item Value Reference Range Interpretation Comments UA RBC (test code = 0-2 /HPF See_Comment [Automa uri message] The UA RBC) system which ge nerated this result tra nsmitted reference range : <=2. The reference range was not used to interpr et this result as shailesh l/abnormal. [facility] AND [id number] 18:50:00 Test Item Value Reference Range Interpretation Comments UA WBC (test code = UA WBC) 3-5 /HPF [facility] AND [id number] 18:50:00 Test Item Value Reference Range Interpretation Comments UA Sq Epi (test code = UA Sq Epi) Few /LPF [facility] [id number] 18:50:00 Test Item Value Reference Range Interpretation Comments U Preg (test code = U Negative (02/28/18 1:50 Preg) PM) [facility] [id number] 18:48:00 Test Item Value Reference Range Interpretation Comments Grp A Strep Scr (test Negative (02/28/18 1:48 code = Grp A Strep PM) Scr) [facility] - [id number] 18:48:00 Test Item Value Reference Range Interpretation Comments Influ B (test code = Negative (02/28/18 1:48 Influ B) PM) [facility] - [id number] 18:48:00 Test Item Value Reference Range Interpretation Comments Influ A (test code = Negative (02/28/18 1:48 Influ A) PM) [facility] [id number] 18:48:00 Test Item Value Reference Range Interpretation Comments Grp A Strep Scr (test Negative (02/28/18 1:48 code = Grp A Strep PM) Scr) [facility] - [id number] 18:48:00 Test Item Value Reference Range Interpretation Comments Influ B (test code = Negative (02/28/18 1:48 Influ B) PM) [facility] - [id number] 18:48:00 Test Item Value Reference Range Interpretation Comments Influ A (test code = Negative (02/28/18 1:48 Influ A) PM) [facility] [id number] 18:48:00 Test Item Value Reference Range Interpretation Comments Grp A Strep Scr (test Negative (02/28/18 1:48 code = Grp A Strep PM) Scr) [facility] - [id number] 18:48:00 Test Item Value Reference Range Interpretation Comments Influ B (test code = Negative (02/28/18 1:48 Influ B) PM) [facility] HermannVIRAL - [id number] 18:48:00 Test Item Value Reference Range Interpretation Comments Influ A (test code = Negative (02/28/18 1:48 Influ A) PM) [facility]ann[facility]INE [id number] 13:20:00 Test Item Value Reference Range Interpretation Comments U Preg (test code = U Negative (02/07/18 8:20 Preg) AM) [facility] [id number] 13:20:00 Test Item Value Reference Range Interpretation Comments U Preg (test code = U Negative (02/07/18 8:20 Preg) AM) [facility] [id number] 13:20:00 Test Item Value Reference Range Interpretation Comments U Preg (test code = U Negative (02/07/18 8:20 Preg) AM) [facility] [id number] 15:29:00 Test Item Value Reference Range Interpretation Comments U Preg (test code = U Negative (01/24/18 10:29 Preg) AM) [facility] [id number] 15:29:00 Test Item Value Reference Range Interpretation Comments U Preg (test code = U Negative (01/24/18 10:29 Preg) AM) [facility] [id number] 15:29:00 Test Item Value Reference Range Interpretation Comments U Preg (test code = U Negative (01/24/18 10:29 Preg) AM) [facility] HermannCHEM [id number] 13:59:00 Test Item Value Reference Range Interpretation Comments Lipase Lvl (test code = Lipase Lvl) 67 73-393 [facility]BgdoiwzPKNKNXCKLJLD7068-06-72 13:59:00 Test Item Value Reference Range Interpretation Comments AGAP (test code = AGAP) 14.6 10.0-20.0 [facility] Hospital[id number] 13:59:00 Test Item Value Reference Range Interpretation Comments Globulin (test code = Globulin) 3.7 2.7-4.2 [facility] Hos[id number] 13:59:00 Test Item Value Reference Range Interpretation Comments A/G Ratio (test code = A/G Ratio) 0.9 1 0.7-1.6 [facility] HospitalSuqytakEHGNPIJAGGCP1668-15-32 13:59:00 Test Item Value Reference Range Interpretation Comments B/C Ratio (test code = B/C Ratio) 20 1 6-25 [facility] HospitalLjzdsbfTBVQBPYSQGYI4026-63-99 13:59:00 Test Item Value Reference Range Interpretation Comments eGFR (test code = eGFR) 128 [facility] HospitalOzpdhzpWPISCECUIZCQ5776-35-79 13:59:00 Test Item Value Reference Range Interpretation Comments Alk Phos (test code = Alk Phos) 69 39-136 [facility] HospitalIexgyzyFQXGBBPGBAPO3023-47-79 13:59:00 Test Item Value Reference Range Interpretation Comments Bili Total (test code = Bili Total) 0.5 0.2-1.3 [facility] HospitalUkb[id number] 13:59:00 Test Item Value Reference Range Interpretation Comments Creatinine Lvl (test code = Creatinine 0.69 0.50-1.40 Lvl) [facility] HospitalUcewzwhQLQVTDUNAZWX6659-35-16 13:59:00 Test Item Value Reference Range Interpretation Comments Sodium Lvl (test code = Sodium Lvl) 143 135-145 [facility] HospitalAvcnaqeJZYSGSQPUYLD4983-05-69 13:59:00 Test Item Value Reference Range Interpretation Comments Potassium Lvl (test code = Potassium 3.6 3.5-5.1 Lvl) [facility] HospitalPwvrcbrLVGXCGTXUHMW4068-32-00 13:59:00 Test Item Value Reference Range Interpretation Comments Chloride Lvl (test code = Chloride Lvl) 107 95-109 [facility] HospitalHnpstvhBYFLZZTAABOI6716-55-55 13:59:00 Test Item Value Reference Range Interpretation Comments Albumin Lvl (test code = Albumin Lvl) 3.5 3.5-5.0 [facility] HospitalBavasgdVGIZPRXCMEQI3012-14-59 13:59:00 Test Item Value Reference Range Interpretation Comments ALT (test code = ALT) 32 See_Comment [Auto mated message] The system which ge nerated this result transmit uri reference range : <=65. The reference range was not used to interpr et this result as shailesh l/abnormal. [facility] HospitalDsvmmlmNVWUDIWPLHQL0371-14-80 13:59:00 Test Item Value Reference Range Interpretation Comments AST (test code = AST) 30 See_Comment [Auto mated message] The system which ge nerated this result transmit uri reference range : <=37. The reference range was not used to interpr et this result as shailesh l/abnormal. [facility] HospitalKtiuwrjOITAMDRGJHXU5090-56-70 13:59:00 Test Item Value Reference Range Interpretation Comments CO2 (test code = CO2) 25 24-32 [facility] HospitalWghfmanYKPNNPJKPQVC0140-69-31 13:59:00 Test Item Value Reference Range Interpretation Comments Calcium Lvl (test code = Calcium Lvl) 8.4 8.5-10.5 [facility] HospitalMnmmkmdFOWXVKWHDYVS2894-14-41 13:59:00 Test Item Value Reference Range Interpretation Comments Total Protein (test code = Total 7.2 6.4-8.4 Protein) [facility] HospitalXurheuuPXMLKKVFODEN0020-55-16 13:59:00 Test Item Value Reference Range Interpretation Comments BUN (test code = BUN) 14 7-22 [facility] HospitalHnffmkqDAYGINFANSEC7374-97-72 13:59:00 Test Item Value Reference Range Interpretation Comments Glucose Lvl (test code = Glucose Lvl) 100 70-99 [facility]EkvhmvaTXABMXQUVKHCT3061-61-58 13:59:00 Test Item Value Reference Range Interpretation Comments S Preg (test code = S Negative *NA*(12/06/17 Preg) 8:59 AM) [facility] CenterEtuzfthHGITHDVEUE9614-23-89 13:59:00 Test Item Value Reference Range Interpretation Comments MPV (test code = MPV) 9.6 7.4-10.4 [facility] CenterYmobgrsVTKMCFOQZY1802-96-13 13:59:00 Test Item Value Reference Range Interpretation Comments MCV (test code = MCV) 92.2 80.0-98.0 [facility] CenterKrjqxflKTCNFAJTEY6823-29-92 13:59:00 Test Item Value Reference Range Interpretation Comments Hct (test code = Hct) 42.3 36.0-48.0 [facility] CenterGlrwfncVPWVMZSZXF8178-49-92 13:59:00 Test Item Value Reference Range Interpretation Comments Hgb (test code = Hgb) 14.3 12.0-16.0 [facility] CenterUyzbrbgZTMQIXIOVL2289-09-65 13:59:00 Test Item Value Reference Range Interpretation Comments RBC (test code = RBC) 4.59 4.20-5.40 [facility] CenterWktkeeqZEIPIRVJVM0661-58-23 13:59:00 Test Item Value Reference Range Interpretation Comments Platelet (test code = Platelet) 148 133-450 [facility] CenterGyujozzXLQWTPWJFN6705-05-08 13:59:00 Test Item Value Reference Range Interpretation Comments RDW (test code = RDW) 12.3 11.5-14.5 [facility] CenterKgjdduiTVKRGXSRNQ5687-24-76 13:59:00 Test Item Value Reference Range Interpretation Comments MCH (test code = MCH) 31.2 pg 27.0-31.0 [facility] CenterPyziaqvMSLHOKDMPI8025-40-84 13:59:00 Test Item Value Reference Range Interpretation Comments MCHC (test code = MCHC) 33.9 32.0-36.0 [facility] CenterWjxwypvIUCHMUIGBY7108-37-46 13:59:00 Test Item Value Reference Range Interpretation Comments WBC (test code = WBC) 8.1 3.7-10.4 [facility] CenterKggohxtJLTUGJNATW9818-24-69 13:59:00 Test Item Value Reference Range Interpretation Comments Basophils (test code = 0.1 See_Comment [Aut omated message] The Basophils) system which ge nerated this result tra nsmitted reference range : <=1.0. The reference r kavon was not used to int erpret this result as normal/abnormal . [facility] CenterAyrmedeYERXKOQVQM9970-11-93 13:59:00 Test Item Value Reference Range Interpretation Comments Lymphocytes # (test code = Lymphocytes 1.1 1.0-5.5 #) [facility] CenterDikxevpYBCWUPYZQS4866-05-37 13:59:00 Test Item Value Reference Range Interpretation Comments Segs-Bands # (test code = Segs-Bands #) 6.3 1.5-8.1 [facility] CenterIwzbetsWTJPBAAVVR8402-40-74 13:59:00 Test Item Value Reference Range Interpretation Comments Eosinophils (test code = 0.4 See_Comment [A utomated message] The Eosinophils) system which ge nerated this result tra nsmitted reference range : <=4.0. The reference r kavon was not used to int erpret this result as normal/abnormal . [facility] CenterDglkxbyXHWRAPHKOE8924-78-46 13:59:00 Test Item Value Reference Range Interpretation Comments Monocytes (test code = Monocytes) 8.8 2.0-12.0 [facility] CenterUsuptkvIZNWHHWAWB1955-17-09 13:59:00 Test Item Value Reference Range Interpretation Comments Lymphocytes (test code = Lymphocytes) 14.1 20.0-40.0 [facility] CenterUokeopdMTANCQWKKY9555-70-45 13:59:00 Test Item Value Reference Range Interpretation Comments Monocytes # (test code 0.7 See_Comment [Aut omated message] The = Monocytes #) system which generated this result tra nsmitted reference range : <=0.8. The reference r kavon was not used to int erpret this result as normal/abnormal . [facility] CenterSmvcdmaQEMFCDSRMN4757-51-36 13:59:00 Test Item Value Reference Range Interpretation Comments Segs (test code = Segs) 76.6 45.0-75.0 [facility] AND [id number] 13:59:00 Test Item Value Reference Range Interpretation Comments UA Amorph Renee (test code = UA Few /HPF Amorph Renee) [facility] AND [id number] 13:59:00 Test Item Value Reference Range Interpretation Comments UA RBC (test code = 0-2 /HPF See_Comment [Automa uri message] The UA RBC) system which ge nerated this result tra nsmitted reference range : <=2. The reference range was not used to interpr et this result as shailesh l/abnormal. [facility] AND [id number] 13:59:00 Test Item Value Reference Range Interpretation Comments UA Bacteria (test code = UA Few /HPF Bacteria) [facility] AND [id number] 13:59:00 Test Item Value Reference Range Interpretation Comments UA Mucus (test code = UA Mucus) Moderate /LPF [facility] AND [id number] 13:59:00 Test Item Value Reference Range Interpretation Comments UA Sq Epi (test code = UA Sq Epi) Few /LPF [facility] AND [id number] 13:59:00 Test Item Value Reference Range Interpretation Comments UA WBC (test code = UA WBC) 3-5 /HPF [facility] AND [id number] 13:59:00 Test Item Value Reference Range Interpretation Comments UA Nitrite (test code Negative (12/06/17 8:59 = UA Nitrite) AM) [facility] AND [id number] 13:59:00 Test Item Value Reference Range Interpretation Comments UA Leuk Est (test Negative (12/06/17 8:59 code = UA Leuk Est) AM) [facility] AND [id number] 13:59:00 Test Item Value Reference Range Interpretation Comments UA Blood (test code = Negative (12/06/17 8:59 UA Blood) AM) [facility] AND [id number] 13:59:00 Test Item Value Reference Range Interpretation Comments UA Urobilinogen (test code = UA 1.0 0.1-1.0 Urobilinogen) [facility] AND [id number] 13:59:00 Test Item Value Reference Range Interpretation Comments UA Protein (test code = Trace *ABN*(12/06/17 UA Protein) 8:59 AM) [facility] AND [id number] 13:59:00 Test Item Value Reference Range Interpretation Comments UA Glucose (test code Negative (12/06/17 8:59 = UA Glucose) AM) [facility] AND [id number] 13:59:00 Test Item Value Reference Range Interpretation Comments UA Color (test code = Yellow *NA*(12/06/17 UA Color) 8:59 AM) [facility] AND [id number] 13:59:00 Test Item Value Reference Range Interpretation Comments UA Bili (test code = Negative *NA*(12/06/17 UA Bili) 8:59 AM) [facility] AND [id number] 13:59:00 Test Item Value Reference Range Interpretation Comments UA Ketones (test code = Trace *ABN*(12/06/17 UA Ketones) 8:59 AM) [facility] AND [id number] 13:59:00 Test Item Value Reference Range Interpretation Comments UA Turbidity (test code Slight Cloudy = UA Turbidity) (12/06/17 8:59 AM) [facility] AND [id number] 13:59:00 Test Item Value Reference Range Interpretation Comments UA Spec Grav (test code = UA Spec 1.020 1 Grav) [facility] AND [id number] 13:59:00 Test Item Value Reference Range Interpretation Comments UA pH (test code = UA pH) 7.0 1 5.0-8.0 [facility]annCHE[facility] [id number] 13:59:00 Test Item Value Reference Range Interpretation Comments Lipase Lvl (test code = Lipase Lvl) 67 73-393 [facility]MmczqanCUIVRFTAXCOW4631-46-57 13:59:00 Test Item Value Reference Range Interpretation Comments AGAP (test code = AGAP) 14.6 10.0-20.0 [facility] HospitalWszvpplGMLAGWSTSQMP8897-59-30 13:59:00 Test Item Value Reference Range Interpretation Comments Globulin (test code = Globulin) 3.7 2.7-4.2 [facility] HospitalTzeluipAIQQBJQDMTPI1996-68-33 13:59:00 Test Item Value Reference Range Interpretation Comments A/G Ratio (test code = A/G Ratio) 0.9 1 0.7-1.6 [facility] HospitalInxohczGZZKXGTXDUES9846-63-40 13:59:00 Test Item Value Reference Range Interpretation Comments B/C Ratio (test code = B/C Ratio) 20 1 6-25 [facility] HospitalDfiwbtuDADZHSVWDWZL5782-72-32 13:59:00 Test Item Value Reference Range Interpretation Comments eGFR (test code = eGFR) 128 [facility] HospitalKysaclaGEXRTYWYSANN4798-78-13 13:59:00 Test Item Value Reference Range Interpretation Comments Alk Phos (test code = Alk Phos) 69 39-136 [facility] HospitalXbuzqrjPHHEWBJHMSOO3924-20-08 13:59:00 Test Item Value Reference Range Interpretation Comments Bili Total (test code = Bili Total) 0.5 0.2-1.3 [facility] HospitalXoabeufXTQGPSQZTHIW5566-28-81 13:59:00 Test Item Value Reference Range Interpretation Comments Creatinine Lvl (test code = Creatinine 0.69 0.50-1.40 Lvl) [facility] HospitalNnmyfnbZMBJTXDHSIOO3733-83-59 13:59:00 Test Item Value Reference Range Interpretation Comments Sodium Lvl (test code = Sodium Lvl) 143 135-145 [facility] HospitalUwjsjghQIGTTZMBUAZZ4027-82-50 13:59:00 Test Item Value Reference Range Interpretation Comments Potassium Lvl (test code = Potassium 3.6 3.5-5.1 Lvl) [facility] HospitalJeybmmsXOJGBHWPIDIW6896-90-59 13:59:00 Test Item Value Reference Range Interpretation Comments Chloride Lvl (test code = Chloride Lvl) 107 95-109 [facility] HospitalDcvxkmrHCYEXNCBTAHA1342-96-79 13:59:00 Test Item Value Reference Range Interpretation Comments Albumin Lvl (test code = Albumin Lvl) 3.5 3.5-5.0 [facility] HospitalBtrqfbpLQNWMTCXWQJD0647-19-07 13:59:00 Test Item Value Reference Range Interpretation Comments ALT (test code = ALT) 32 See_Comment [Auto mated message] The system which ge nerated this result transmit uri reference range : <=65. The reference range was not used to interpr et this result as shailesh l/abnormal. [facility] HospitalPglyviuIRDMVKADHFVQ6734-48-44 13:59:00 Test Item Value Reference Range Interpretation Comments AST (test code = AST) 30 See_Comment [Auto mated message] The system which ge nerated this result transmit uri reference range : <=37. The reference range was not used to interpr et this result as shailesh l/abnormal. [facility] HospitalWshpiovDKSKIPDQMICJ0523-71-86 13:59:00 Test Item Value Reference Range Interpretation Comments CO2 (test code = CO2) 25 24-32 [facility] HospitalFnctsruIFJLFGUJRITN1735-10-26 13:59:00 Test Item Value Reference Range Interpretation Comments Calcium Lvl (test code = Calcium Lvl) 8.4 8.5-10.5 [facility] HospitalDnthyvaVTQESLVCNBDF9068-05-72 13:59:00 Test Item Value Reference Range Interpretation Comments Total Protein (test code = Total 7.2 6.4-8.4 Protein) [facility] HospitalWwrxzxaZNMBMQASQSMX3114-58-24 13:59:00 Test Item Value Reference Range Interpretation Comments BUN (test code = BUN) 14 7-22 [facility] HospitalIoeqkkzRTGBMCFUGYON9135-98-75 13:59:00 Test Item Value Reference Range Interpretation Comments Glucose Lvl (test code = Glucose Lvl) 100 70-99 [facility]OyndfqbRDDOEUZXWHAKU8048-61-95 13:59:00 Test Item Value Reference Range Interpretation Comments S Preg (test code = S Negative *NA*(12/06/17 Preg) 8:59 AM) [facility] CenterRraqwcfFZNFJBYOXB8397-37-76 13:59:00 Test Item Value Reference Range Interpretation Comments MPV (test code = MPV) 9.6 7.4-10.4 [facility] CenterZqqoausTYTWUFIKWJ3742-19-91 13:59:00 Test Item Value Reference Range Interpretation Comments MCV (test code = MCV) 92.2 80.0-98.0 [facility] CenterTpplryrXWVJPGCSPS0991-00-96 13:59:00 Test Item Value Reference Range Interpretation Comments Hct (test code = Hct) 42.3 36.0-48.0 [facility] CenterRkueezmLUVCRBEZEG6745-40-03 13:59:00 Test Item Value Reference Range Interpretation Comments Hgb (test code = Hgb) 14.3 12.0-16.0 [facility] CenterDnwbjyfFOBTFNSKBK3793-68-31 13:59:00 Test Item Value Reference Range Interpretation Comments RBC (test code = RBC) 4.59 4.20-5.40 [facility] CenterCgdklcsRSMLQYWWZV0793-99-71 13:59:00 Test Item Value Reference Range Interpretation Comments Platelet (test code = Platelet) 148 133-450 [facility] CenterSouhxfzZEETAXXIEO9668-18-20 13:59:00 Test Item Value Reference Range Interpretation Comments RDW (test code = RDW) 12.3 11.5-14.5 [facility] CenterBvcjcxxYQBVTQDDHZ7753-46-82 13:59:00 Test Item Value Reference Range Interpretation Comments MCH (test code = MCH) 31.2 pg 27.0-31.0 [facility] CenterRibfokrWGEQVWANIO2080-14-45 13:59:00 Test Item Value Reference Range Interpretation Comments MCHC (test code = MCHC) 33.9 32.0-36.0 [facility] CenterWttvdlhDPYMYQLRHT7760-28-08 13:59:00 Test Item Value Reference Range Interpretation Comments WBC (test code = WBC) 8.1 3.7-10.4 [facility] CenterPdgoarcRSVDQOKKRX5088-01-84 13:59:00 Test Item Value Reference Range Interpretation Comments Basophils (test code = 0.1 See_Comment [Aut omated message] The Basophils) system which ge nerated this result tra nsmitted reference range : <=1.0. The reference r kavon was not used to int erpret this result as normal/abnormal . [facility] CenterDbxhasuIFBIZZSOBG3886-13-56 13:59:00 Test Item Value Reference Range Interpretation Comments Lymphocytes # (test code = Lymphocytes 1.1 1.0-5.5 #) [facility] CenterBzowedkYJRRCSVFYJ4667-81-37 13:59:00 Test Item Value Reference Range Interpretation Comments Segs-Bands # (test code = Segs-Bands #) 6.3 1.5-8.1 [facility] CenterEaxcmyjBPMEENZMNO6757-49-10 13:59:00 Test Item Value Reference Range Interpretation Comments Eosinophils (test code = 0.4 See_Comment [A utomated message] The Eosinophils) system which ge nerated this result tra nsmitted reference range : <=4.0. The reference r kavon was not used to int erpret this result as normal/abnormal . [facility] CenterEgcoakbTXDXXKNHED1166-95-49 13:59:00 Test Item Value Reference Range Interpretation Comments Monocytes (test code = Monocytes) 8.8 2.0-12.0 [facility] CenterXrngjzsPTSJJFCHSV7184-46-57 13:59:00 Test Item Value Reference Range Interpretation Comments Lymphocytes (test code = Lymphocytes) 14.1 20.0-40.0 [facility] CenterYsdfhcpZPHCAAKNHA9091-95-92 13:59:00 Test Item Value Reference Range Interpretation Comments Monocytes # (test code 0.7 See_Comment [Aut omated message] The = Monocytes #) system which generated this result tra nsmitted reference range : <=0.8. The reference r kavon was not used to int erpret this result as normal/abnormal . [facility] CenterMbhneenFQBHZIRQYE7889-71-46 13:59:00 Test Item Value Reference Range Interpretation Comments Segs (test code = Segs) 76.6 45.0-75.0 [facility]2018-06-29 13:59:00 Test Item Value Reference Range Interpretation Comments UA Amorph Renee (test code = UA Few /HPF Amorph Renee) [facility]2018-06-29 13:59:00 Test Item Value Reference Range Interpretation Comments UA RBC (test code = 0-2 /HPF See_Comment [Automa uri message] The UA RBC) system which ge nerated this result tra nsmitted reference range : <=2. The reference range was not used to interpr et this result as shailesh l/abnormal. [facility] AND [id number] 13:59:00 Test Item Value Reference Range Interpretation Comments UA Bacteria (test code = UA Few /HPF Bacteria) [facility] AND [id number] 13:59:00 Test Item Value Reference Range Interpretation Comments UA Mucus (test code = UA Mucus) Moderate /LPF [facility] AND [id number] 13:59:00 Test Item Value Reference Range Interpretation Comments UA Sq Epi (test code = UA Sq Epi) Few /LPF [facility] AND [id number] 13:59:00 Test Item Value Reference Range Interpretation Comments UA WBC (test code = UA WBC) 3-5 /HPF [facility] AND [id number] 13:59:00 Test Item Value Reference Range Interpretation Comments UA Nitrite (test code Negative (12/06/17 8:59 = UA Nitrite) AM) [facility] AND [id number] 13:59:00 Test Item Value Reference Range Interpretation Comments UA Leuk Est (test Negative (12/06/17 8:59 code = UA Leuk Est) AM) [facility] AND [id number] 13:59:00 Test Item Value Reference Range Interpretation Comments UA Blood (test code = Negative (12/06/17 8:59 UA Blood) AM) [facility] AND [id number] 13:59:00 Test Item Value Reference Range Interpretation Comments UA Urobilinogen (test code = UA 1.0 0.1-1.0 Urobilinogen) [facility] AND [id number] 13:59:00 Test Item Value Reference Range Interpretation Comments UA Protein (test code = Trace *ABN*(12/06/17 UA Protein) 8:59 AM) [facility] AND [id number] 13:59:00 Test Item Value Reference Range Interpretation Comments UA Glucose (test code Negative (12/06/17 8:59 = UA Glucose) AM) [facility] AND [id number] 13:59:00 Test Item Value Reference Range Interpretation Comments UA Color (test code = Yellow *NA*(12/06/17 UA Color) 8:59 AM) [facility] [id number] 13:59:00 Test Item Value Reference Range Interpretation Comments UA Bili (test code = Negative *NA*(12/06/17 UA Bili) 8:59 AM) [facility] [id number] 13:59:00 Test Item Value Reference Range Interpretation Comments UA Ketones (test code = Trace *ABN*(12/06/17 UA Ketones) 8:59 AM) [facility] [id number] 13:59:00 Test Item Value Reference Range Interpretation Comments UA Turbidity (test code Slight Cloudy = UA Turbidity) (12/06/17 8:59 AM) [facility] [id number] 13:59:00 Test Item Value Reference Range Interpretation Comments UA Spec Grav (test code = UA Spec 1.020 1 Grav) [facility]ann[facility] [id number] 13:59:00 Test Item Value Reference Range Interpretation Comments UA pH (test code = UA pH) 7.0 1 5.0-8.0 [facility]annCHE[facility] [id number] 13:59:00 Test Item Value Reference Range Interpretation Comments Lipase Lvl (test code = Lipase Lvl) 67 73-393 [facility] CampusJagficjQLIJSMREFODA7971-22-54 13:59:00 Test Item Value Reference Range Interpretation Comments AGAP (test code = AGAP) 14.6 10.0-20.0 [facility] CampusAyyqgshYVSBAHJOQZYQ0452-98-60 13:59:00 Test Item Value Reference Range Interpretation Comments Globulin (test code = Globulin) 3.7 2.7-4.2 [facility] CampusTygywazLRBKRIUGNTJB1037-47-62 13:59:00 Test Item Value Reference Range Interpretation Comments A/G Ratio (test code = A/G Ratio) 0.9 1 0.7-1.6 [facility] CampusThdqvtcLZYEPDJKHYWJ9483-25-35 13:59:00 Test Item Value Reference Range Interpretation Comments B/C Ratio (test code = B/C Ratio) 20 1 6-25 [facility] CampusAcmnunjMJAECDVMMWWR3050-46-17 13:59:00 Test Item Value Reference Range Interpretation Comments eGFR (test code = eGFR) 128 [facility] HospitalTkmzcmyJZRBKADKOPIH5880-07-92 13:59:00 Test Item Value Reference Range Interpretation Comments Alk Phos (test code = Alk Phos) 69 39-136 [facility] HospitalDffwjrdGMJIRZONHIGF8528-53-23 13:59:00 Test Item Value Reference Range Interpretation Comments Bili Total (test code = Bili Total) 0.5 0.2-1.3 [facility] HospitalSuthiypFMGTIDMAHEQN2255-81-70 13:59:00 Test Item Value Reference Range Interpretation Comments Creatinine Lvl (test code = Creatinine 0.69 0.50-1.40 Lvl) [facility] HospitalZhrcbduFIOUXLDFMMHF2046-76-13 13:59:00 Test Item Value Reference Range Interpretation Comments Sodium Lvl (test code = Sodium Lvl) 143 135-145 [facility] HospitalUgyajunKFPVTKJXDLUL6246-04-42 13:59:00 Test Item Value Reference Range Interpretation Comments Potassium Lvl (test code = Potassium 3.6 3.5-5.1 Lvl) [facility] HospitalJbhvsgiNAKHEBMTLQJW8564-81-43 13:59:00 Test Item Value Reference Range Interpretation Comments Chloride Lvl (test code = Chloride Lvl) 107 95-109 [facility] HospitalQgrjihpDRDURDUFYJUK7400-60-65 13:59:00 Test Item Value Reference Range Interpretation Comments Albumin Lvl (test code = Albumin Lvl) 3.5 3.5-5.0 [facility] HospitalQrdxkckKRIQDRYTRMQC9252-34-28 13:59:00 Test Item Value Reference Range Interpretation Comments ALT (test code = ALT) 32 See_Comment [Auto mated message] The system which ge nerated this result transmit uri reference range : <=65. The reference range was not used to interpr et this result as shailesh l/abnormal. [facility] HospitalZapawqdOJIRUWDZISLI0952-24-47 13:59:00 Test Item Value Reference Range Interpretation Comments AST (test code = AST) 30 See_Comment [Auto mated message] The system which ge nerated this result transmit uri reference range : <=37. The reference range was not used to interpr et this result as shailesh l/abnormal. [facility] HospitalFetigmrMJNBFZEWPJUN8949-27-72 13:59:00 Test Item Value Reference Range Interpretation Comments CO2 (test code = CO2) 25 24-32 [facility] HospitalAanzbazRFOUJBRXKXYB7272-96-64 13:59:00 Test Item Value Reference Range Interpretation Comments Calcium Lvl (test code = Calcium Lvl) 8.4 8.5-10.5 [facility] HospitalUihxbayOYGEVQCZUQLT0542-43-69 13:59:00 Test Item Value Reference Range Interpretation Comments Total Protein (test code = Total 7.2 6.4-8.4 Protein) [facility] HospitalLqwldtvWMTHFCVYWNCW6467-83-70 13:59:00 Test Item Value Reference Range Interpretation Comments BUN (test code = BUN) 14 7-22 [facility] HospitalSckvadcSJEIGWQQMDNZ5219-16-47 13:59:00 Test Item Value Reference Range Interpretation Comments Glucose Lvl (test code = Glucose Lvl) 100 70-99 [facility]XzyohwfCJESXBMXRQQCY9466-99-93 13:59:00 Test Item Value Reference Range Interpretation Comments S Preg (test code = S Negative *NA*(12/06/17 Preg) 8:59 AM) [facility] CenterErkigfsADHAQSYAEA5584-43-72 13:59:00 Test Item Value Reference Range Interpretation Comments MPV (test code = MPV) 9.6 7.4-10.4 [facility] CenterJweashqMOPTNZFENB3026-96-85 13:59:00 Test Item Value Reference Range Interpretation Comments MCV (test code = MCV) 92.2 80.0-98.0 [facility] CenterCcpdvfcMSVEWQDBKA3504-77-62 13:59:00 Test Item Value Reference Range Interpretation Comments Hct (test code = Hct) 42.3 36.0-48.0 [facility] CenterFuofvmqXKTQHDVWLP8402-58-47 13:59:00 Test Item Value Reference Range Interpretation Comments Hgb (test code = Hgb) 14.3 12.0-16.0 [facility] CenterKmipeixPMDAVAMTDT4929-91-93 13:59:00 Test Item Value Reference Range Interpretation Comments RBC (test code = RBC) 4.59 4.20-5.40 [facility] CenterGchcossAHFDKDYWHN8656-12-62 13:59:00 Test Item Value Reference Range Interpretation Comments Platelet (test code = Platelet) 148 133-450 [facility] CenterPqlrzloYTLVYYYDVK2400-43-65 13:59:00 Test Item Value Reference Range Interpretation Comments RDW (test code = RDW) 12.3 11.5-14.5 [facility] CenterJwpaebxBWYLETDRBO2912-80-52 13:59:00 Test Item Value Reference Range Interpretation Comments MCH (test code = MCH) 31.2 pg 27.0-31.0 [facility] CenterRfuogmsPUHDKRXHHS9724-51-20 13:59:00 Test Item Value Reference Range Interpretation Comments MCHC (test code = MCHC) 33.9 32.0-36.0 [facility] CenterVcqdgbxBVLGWQUOKR7543-23-01 13:59:00 Test Item Value Reference Range Interpretation Comments WBC (test code = WBC) 8.1 3.7-10.4 [facility] CenterAximvkmJTQAMKKSXN8485-89-40 13:59:00 Test Item Value Reference Range Interpretation Comments Basophils (test code = 0.1 See_Comment [Aut omated message] The Basophils) system which ge nerated this result tra nsmitted reference range : <=1.0. The reference r kavon was not used to int erpret this result as normal/abnormal . [facility] CenterAyjopdgTCHRRQBMDP7577-65-25 13:59:00 Test Item Value Reference Range Interpretation Comments Lymphocytes # (test code = Lymphocytes 1.1 1.0-5.5 #) [facility] CenterJyifbmmDCQDXVVCHT6183-70-77 13:59:00 Test Item Value Reference Range Interpretation Comments Segs-Bands # (test code = Segs-Bands #) 6.3 1.5-8.1 [facility] CenterKztkyleKBJDFXWYZN2350-45-33 13:59:00 Test Item Value Reference Range Interpretation Comments Eosinophils (test code = 0.4 See_Comment [A utomated message] The Eosinophils) system which ge nerated this result tra nsmitted reference range : <=4.0. The reference r kavon was not used to int erpret this result as normal/abnormal . [facility] CenterPjyrpamFJMRHZHUVA1379-40-21 13:59:00 Test Item Value Reference Range Interpretation Comments Monocytes (test code = Monocytes) 8.8 2.0-12.0 [facility] CenterIubweymEFGTYXMHVU8274-46-89 13:59:00 Test Item Value Reference Range Interpretation Comments Lymphocytes (test code = Lymphocytes) 14.1 20.0-40.0 [facility] CenterSgrziikOOLTEMAYOP5197-68-02 13:59:00 Test Item Value Reference Range Interpretation Comments Monocytes # (test code 0.7 See_Comment [Aut omated message] The = Monocytes #) system which generated this result tra nsmitted reference range : <=0.8. The reference r kavon was not used to int erpret this result as normal/abnormal . [facility]KticshwTWYHJZSXRR8780-60-01 13:59:00 Test Item Value Reference Range Interpretation Comments Segs (test code = Segs) 76.6 45.0-75.0 [facility] AND [id number] 13:59:00 Test Item Value Reference Range Interpretation Comments UA Amorph Renee (test code = UA Few /HPF Amorph Renee) [facility] AND [id number] 13:59:00 Test Item Value Reference Range Interpretation Comments UA RBC (test code = 0-2 /HPF See_Comment [Automa uri message] The UA RBC) system which ge nerated this result tra nsmitted reference range : <=2. The reference range was not used to interpr et this result as shailesh l/abnormal. [facility] AND [id number] 13:59:00 Test Item Value Reference Range Interpretation Comments UA Bacteria (test code = UA Few /HPF Bacteria) [facility] AND [id number] 13:59:00 Test Item Value Reference Range Interpretation Comments UA Mucus (test code = UA Mucus) Moderate /LPF [facility] AND [id number] 13:59:00 Test Item Value Reference Range Interpretation Comments UA Sq Epi (test code = UA Sq Epi) Few /LPF [facility] AND [id number] 13:59:00 Test Item Value Reference Range Interpretation Comments UA WBC (test code = UA WBC) 3-5 /HPF [facility] AND [id number] 13:59:00 Test Item Value Reference Range Interpretation Comments UA Nitrite (test code Negative (12/06/17 8:59 = UA Nitrite) AM) [facility] AND [id number] 13:59:00 Test Item Value Reference Range Interpretation Comments UA Leuk Est (test Negative (12/06/17 8:59 code = UA Leuk Est) AM) [facility] AND [id number] 13:59:00 Test Item Value Reference Range Interpretation Comments UA Blood (test code = Negative (12/06/17 8:59 UA Blood) AM) [facility] AND [id number] 13:59:00 Test Item Value Reference Range Interpretation Comments UA Urobilinogen (test code = UA 1.0 0.1-1.0 Urobilinogen) [facility] AND [id number] 13:59:00 Test Item Value Reference Range Interpretation Comments UA Protein (test code = Trace *ABN*(12/06/17 UA Protein) 8:59 AM) [facility] AND [id number] 13:59:00 Test Item Value Reference Range Interpretation Comments UA Glucose (test code Negative (12/06/17 8:59 = UA Glucose) AM) [facility] AND [id number] 13:59:00 Test Item Value Reference Range Interpretation Comments UA Color (test code = Yellow *NA*(12/06/17 UA Color) 8:59 AM) [facility] AND [id number] 13:59:00 Test Item Value Reference Range Interpretation Comments UA Bili (test code = Negative *NA*(12/06/17 UA Bili) 8:59 AM) [facility] AND [id number] 13:59:00 Test Item Value Reference Range Interpretation Comments UA Ketones (test code = Trace *ABN*(12/06/17 UA Ketones) 8:59 AM) [facility] AND [id number] 13:59:00 Test Item Value Reference Range Interpretation Comments UA Turbidity (test code Slight Cloudy = UA Turbidity) (12/06/17 8:59 AM) [facility] AND [id number] 13:59:00 Test Item Value Reference Range Interpretation Comments UA Spec Grav (test code = UA Spec 1.020 1 Grav) [facility] AND [id number] 13:59:00 Test Item Value Reference Range Interpretation Comments UA pH (test code = UA pH) 7.0 1 5.0-8.0 [facility] CampusannPosterous [id number] 01:04:00 Test Item Value Reference Range Interpretation Comments eGFR (test code = eGFR) 119 [facility] CampusannCHEM [id number] 01:04:00 Test Item Value Reference Range Interpretation Comments Bili Total (test code = Bili Total) 0.2 0.2-1.3 [facility] CampusannPosterous [id number] 01:04:00 Test Item Value Reference Range Interpretation Comments ALT (test code = ALT) 35 See_Comment [Auto mated message] The system which ge nerated this result transmit uri reference range : <=65. The reference range was not used to interpr et this result as shailesh l/abnormal. [facility]2018-05-29 01:04:00 Test Item Value Reference Range Interpretation Comments Albumin Lvl (test code = Albumin Lvl) 3.7 3.5-5.0 [facility]2018-05-29 01:04:00 Test Item Value Reference Range Interpretation Comments Alk Phos (test code = Alk Phos) 83 39-136 [facility]2018-05-29 01:04:00 Test Item Value Reference Range Interpretation Comments AST (test code = AST) 21 See_Comment [Auto mated message] The system which ge nerated this result transmit uri reference range : <=37. The reference range was not used to interpr et this result as shailesh l/abnormal. [facility]2018-05-29 01:04:00 Test Item Value Reference Range Interpretation Comments Total Protein (test code = Total 7.5 6.4-8.4 Protein) [facility]2018-05-29 01:04:00 Test Item Value Reference Range Interpretation Comments BUN (test code = BUN) 20 7-22 [facility]2018-05-29 01:04:00 Test Item Value Reference Range Interpretation Comments Glucose Lvl (test code = Glucose Lvl) 98 70-99 [facility]2018-05-29 01:04:00 Test Item Value Reference Range Interpretation Comments Creatinine Lvl (test code = Creatinine 0.74 0.50-1.40 Lvl) [facility]2018-05-29 01:04:00 Test Item Value Reference Range Interpretation Comments Calcium Lvl (test code = Calcium Lvl) 8.7 8.5-10.5 [facility]2018-05-29 01:04:00 Test Item Value Reference Range Interpretation Comments CO2 (test code = CO2) 27 24-32 [facility]2018-05-29 01:04:00 Test Item Value Reference Range Interpretation Comments Sodium Lvl (test code = Sodium Lvl) 141 135-145 [facility]2018-05-29 01:04:00 Test Item Value Reference Range Interpretation Comments Chloride Lvl (test code = Chloride Lvl) 107 95-109 [facility]2018-05-29 01:04:00 Test Item Value Reference Range Interpretation Comments Potassium Lvl (test code = Potassium 3.8 3.5-5.1 Lvl) [facility]2018-05-29 01:04:00 Test Item Value Reference Range Interpretation Comments AGAP (test code = AGAP) 10.8 10.0-20.0 [facility]2018-05-29 01:04:00 Test Item Value Reference Range Interpretation Comments A/G Ratio (test code = A/G Ratio) 1.0 1 0.7-1.6 [facility]2018-05-29 01:04:00 Test Item Value Reference Range Interpretation Comments B/C Ratio (test code = B/C Ratio) 27 1 6-25 [facility]2018-05-29 01:04:00 Test Item Value Reference Range Interpretation Comments Globulin (test code = Globulin) 3.8 2.7-4.2 [facility] TaylorJmdiobrHEXOLEDAYWWTP1073-70-36 01:04:00 Test Item Value Reference Range Interpretation Comments S Preg (test code = S Negative *NA*(11/04/17 Preg) 8:04 PM) [facility] CenterWqquuvqIGVXCPPKNR3943-43-74 01:04:00 Test Item Value Reference Range Interpretation Comments Platelet (test code = Platelet) 192 133-450 [facility] CenterVmjfrsvSBUEUWZCZU0412-16-16 01:04:00 Test Item Value Reference Range Interpretation Comments MPV (test code = MPV) 9.2 7.4-10.4 [facility] CenterWzitrepTPYXPTVQBX4112-53-21 01:04:00 Test Item Value Reference Range Interpretation Comments RBC (test code = RBC) 4.42 4.20-5.40 [facility] CenterVvayikxICXKZXCDGW7658-01-59 01:04:00 Test Item Value Reference Range Interpretation Comments WBC (test code = WBC) 10.3 3.7-10.4 [facility] CenterSetjcbuQOZXNSRLSG0590-18-25 01:04:00 Test Item Value Reference Range Interpretation Comments Hgb (test code = Hgb) 13.6 12.0-16.0 [facility] CenterUvytbywATYEUXQXLZ1218-86-04 01:04:00 Test Item Value Reference Range Interpretation Comments Hct (test code = Hct) 40.2 36.0-48.0 [facility] CenterPqgjctzWHYAJSSBYY5742-22-24 01:04:00 Test Item Value Reference Range Interpretation Comments MCH (test code = MCH) 30.8 pg 27.0-31.0 [facility] CenterZlzgwqzCVPQCGPTQR8828-15-02 01:04:00 Test Item Value Reference Range Interpretation Comments MCV (test code = MCV) 90.9 80.0-98.0 [facility] CenterZewcbwxJHCDLFRSST9842-27-92 01:04:00 Test Item Value Reference Range Interpretation Comments RDW (test code = RDW) 12.6 11.5-14.5 [facility] CenterGswfzmhHSYRSTJKLI4118-81-97 01:04:00 Test Item Value Reference Range Interpretation Comments MCHC (test code = MCHC) 33.8 32.0-36.0 [facility] CenterWekpvvwEGOOVTAHWF7151-56-53 01:04:00 Test Item Value Reference Range Interpretation Comments Segs (test code = Segs) 52.3 45.0-75.0 [facility] CenterOncpwsdUWSFAWDFWJ0201-67-76 01:04:00 Test Item Value Reference Range Interpretation Comments Monocytes (test code = Monocytes) 8.0 2.0-12.0 [facility] CenterEirzofsIBXPNFTGNX1519-68-87 01:04:00 Test Item Value Reference Range Interpretation Comments Lymphocytes (test code = Lymphocytes) 38.3 20.0-40.0 [facility] CenterPqvupgeWRRKCBIBVX8006-66-07 01:04:00 Test Item Value Reference Range Interpretation Comments Eosinophils (test code = 0.9 See_Comment [A utomated message] The Eosinophils) system which ge nerated this result tra nsmitted reference range : <=4.0. The reference r kavon was not used to int erpret this result as normal/abnormal . [facility] CenterDozitlnXWDBMUZHJW4794-72-30 01:04:00 Test Item Value Reference Range Interpretation Comments Basophils (test code = 0.5 See_Comment [Aut omated message] The Basophils) system which ge nerated this result tra nsmitted reference range : <=1.0. The reference r kavon was not used to int erpret this result as normal/abnormal . [facility] CenterTzsaxxtSPCKZKBIYS4694-23-38 01:04:00 Test Item Value Reference Range Interpretation Comments Segs-Bands # (test code = Segs-Bands #) 5.4 1.5-8.1 [facility] CenterMvgjobyWYRTMDRRWE5435-20-87 01:04:00 Test Item Value Reference Range Interpretation Comments Monocytes # (test code 0.8 See_Comment [Aut omated message] The = Monocytes #) system which generated this result tra nsmitted reference range : <=0.8. The reference r kavon was not used to int erpret this result as normal/abnormal . [facility] CenterFsxdzhrRIRLDUANMI3193-66-25 01:04:00 Test Item Value Reference Range Interpretation Comments Lymphocytes # (test code = Lymphocytes 3.9 1.0-5.5 #) [facility] CenterShnoyqqMILAUBPCOC8812-43-37 01:04:00 Test Item Value Reference Range Interpretation Comments Eosinophils # (test code 0.1 See_Comment [A utomated message] The = Eosinophils #) system whic h generated this result tra nsmitted reference range : <=0.5. The reference r kavon was not used to int erpret this result as normal/abnormal . [facility] CenterFehbltmCQMCZQYPDP0562-91-08 01:04:00 Test Item Value Reference Range Interpretation Comments Basophils # (test code 0.1 See_Comment [Aut omated message] The = Basophils #) system which generated this result tra nsmitted reference range : <=0.2. The reference r kavon was not used to int erpret this result as normal/abnormal . [facility]2018-05-29 01:04:00 Test Item Value Reference Range Interpretation Comments eGFR (test code = eGFR) 119 [facility]2018-05-29 01:04:00 Test Item Value Reference Range Interpretation Comments Bili Total (test code = Bili Total) 0.2 0.2-1.3 [facility]2018-05-29 01:04:00 Test Item Value Reference Range Interpretation Comments ALT (test code = ALT) 35 See_Comment [Auto mated message] The system which ge nerated this result transmit uri reference range : <=65. The reference range was not used to interpr et this result as shailesh l/abnormal. [facility]2018-05-29 01:04:00 Test Item Value Reference Range Interpretation Comments Albumin Lvl (test code = Albumin Lvl) 3.7 3.5-5.0 [facility]2018-05-29 01:04:00 Test Item Value Reference Range Interpretation Comments Alk Phos (test code = Alk Phos) 83 39-136 [facility]2018-05-29 01:04:00 Test Item Value Reference Range Interpretation Comments AST (test code = AST) 21 See_Comment [Auto mated message] The system which ge nerated this result transmit uri reference range : <=37. The reference range was not used to interpr et this result as shailesh l/abnormal. [facility]2018-05-29 01:04:00 Test Item Value Reference Range Interpretation Comments Total Protein (test code = Total 7.5 6.4-8.4 Protein) [facility]2018-05-29 01:04:00 Test Item Value Reference Range Interpretation Comments BUN (test code = BUN) 20 7-22 [facility]2018-05-29 01:04:00 Test Item Value Reference Range Interpretation Comments Glucose Lvl (test code = Glucose Lvl) 98 70-99 [facility]2018-05-29 01:04:00 Test Item Value Reference Range Interpretation Comments Creatinine Lvl (test code = Creatinine 0.74 0.50-1.40 Lvl) [facility]2018-05-29 01:04:00 Test Item Value Reference Range Interpretation Comments Calcium Lvl (test code = Calcium Lvl) 8.7 8.5-10.5 [facility]2018-05-29 01:04:00 Test Item Value Reference Range Interpretation Comments CO2 (test code = CO2) 27 24-32 [facility]2018-05-29 01:04:00 Test Item Value Reference Range Interpretation Comments Sodium Lvl (test code = Sodium Lvl) 141 135-145 [facility]2018-05-29 01:04:00 Test Item Value Reference Range Interpretation Comments Chloride Lvl (test code = Chloride Lvl) 107 95-109 [facility]2018-05-29 01:04:00 Test Item Value Reference Range Interpretation Comments Potassium Lvl (test code = Potassium 3.8 3.5-5.1 Lvl) [facility]2018-05-29 01:04:00 Test Item Value Reference Range Interpretation Comments AGAP (test code = AGAP) 10.8 10.0-20.0 [facility]2018-05-29 01:04:00 Test Item Value Reference Range Interpretation Comments A/G Ratio (test code = A/G Ratio) 1.0 1 0.7-1.6 [facility]2018-05-29 01:04:00 Test Item Value Reference Range Interpretation Comments B/C Ratio (test code = B/C Ratio) 27 1 6-25 [facility]2018-05-29 01:04:00 Test Item Value Reference Range Interpretation Comments Globulin (test code = Globulin) 3.8 2.7-4.2 [facility]qsBLPZYJBHXZKTZ1966-51-48 01:04:00 Test Item Value Reference Range Interpretation Comments S Preg (test code = S Negative *NA*(11/04/17 Preg) 8:04 PM) [facility] CenterJteiuygTBFHHDMSZB3459-65-01 01:04:00 Test Item Value Reference Range Interpretation Comments Platelet (test code = Platelet) 192 133-450 [facility] CenterEmbaqhdTNPGFUBFQI4295-76-97 01:04:00 Test Item Value Reference Range Interpretation Comments MPV (test code = MPV) 9.2 7.4-10.4 [facility] CenterApprvkfCPJRTHMGTL0266-09-49 01:04:00 Test Item Value Reference Range Interpretation Comments RBC (test code = RBC) 4.42 4.20-5.40 [facility] CenterMxvzikeFHCCLKUNNH3123-27-61 01:04:00 Test Item Value Reference Range Interpretation Comments WBC (test code = WBC) 10.3 3.7-10.4 [facility] CenterDmcbewuVHZPVLPJYI3184-54-92 01:04:00 Test Item Value Reference Range Interpretation Comments Hgb (test code = Hgb) 13.6 12.0-16.0 [facility] CenterHitgqdrJIFRNKJTQU5365-27-48 01:04:00 Test Item Value Reference Range Interpretation Comments Hct (test code = Hct) 40.2 36.0-48.0 [facility] CenterAuhbnhlOUDWVVSDCF3208-72-32 01:04:00 Test Item Value Reference Range Interpretation Comments MCH (test code = MCH) 30.8 pg 27.0-31.0 [facility] CenterKcnxycwEBTVKVGSDG7600-15-15 01:04:00 Test Item Value Reference Range Interpretation Comments MCV (test code = MCV) 90.9 80.0-98.0 [facility] CenterEgmyvwjHWQNQIHGJQ2073-98-08 01:04:00 Test Item Value Reference Range Interpretation Comments RDW (test code = RDW) 12.6 11.5-14.5 [facility] CenterCeenutnFHFIFSLFYW9060-11-35 01:04:00 Test Item Value Reference Range Interpretation Comments MCHC (test code = MCHC) 33.8 32.0-36.0 [facility] CenterKvyqnufZZIDDCJGHN7591-78-35 01:04:00 Test Item Value Reference Range Interpretation Comments Segs (test code = Segs) 52.3 45.0-75.0 [facility] CenterYstgzwqOADPGPULSU7227-59-31 01:04:00 Test Item Value Reference Range Interpretation Comments Monocytes (test code = Monocytes) 8.0 2.0-12.0 [facility] CenterNwyygyhPXALVGFJWT9965-80-86 01:04:00 Test Item Value Reference Range Interpretation Comments Lymphocytes (test code = Lymphocytes) 38.3 20.0-40.0 [facility] CenterXfddaxjEMKNQUZOSM1358-08-44 01:04:00 Test Item Value Reference Range Interpretation Comments Eosinophils (test code = 0.9 See_Comment [A utomated message] The Eosinophils) system which ge nerated this result tra nsmitted reference range : <=4.0. The reference r kavon was not used to int erpret this result as normal/abnormal . [facility] CenterOruyphlUZANYHOYNR8153-57-11 01:04:00 Test Item Value Reference Range Interpretation Comments Basophils (test code = 0.5 See_Comment [Aut omated message] The Basophils) system which ge nerated this result tra nsmitted reference range : <=1.0. The reference r kavon was not used to int erpret this result as normal/abnormal . [facility] CenterEkzvkieDTGJECDKXT2588-61-17 01:04:00 Test Item Value Reference Range Interpretation Comments Segs-Bands # (test code = Segs-Bands #) 5.4 1.5-8.1 [facility] CenterBjtfscbIBRNVYXLDN2341-23-35 01:04:00 Test Item Value Reference Range Interpretation Comments Monocytes # (test code 0.8 See_Comment [Aut omated message] The = Monocytes #) system which generated this result tra nsmitted reference range : <=0.8. The reference r kavon was not used to int erpret this result as normal/abnormal . [facility] CenterYpxuqqqGBJXOPIQOY1315-99-99 01:04:00 Test Item Value Reference Range Interpretation Comments Lymphocytes # (test code = Lymphocytes 3.9 1.0-5.5 #) [facility] CenterJvkpbrlELOXMVHRQO5825-99-32 01:04:00 Test Item Value Reference Range Interpretation Comments Eosinophils # (test code 0.1 See_Comment [A utomated message] The = Eosinophils #) system whic h generated this result tra nsmitted reference range : <=0.5. The reference r kavon was not used to int erpret this result as normal/abnormal . [facility] CenterLrzgzzjBECPKTVZGI9103-05-23 01:04:00 Test Item Value Reference Range Interpretation Comments Basophils # (test code 0.1 See_Comment [Aut omated message] The = Basophils #) system which generated this result tra nsmitted reference range : <=0.2. The reference r kavon was not used to int erpret this result as normal/abnormal . [facility]2018-05-29 01:04:00 Test Item Value Reference Range Interpretation Comments eGFR (test code = eGFR) 119 [facility]2018-05-29 01:04:00 Test Item Value Reference Range Interpretation Comments Bili Total (test code = Bili Total) 0.2 0.2-1.3 [facility]2018-05-29 01:04:00 Test Item Value Reference Range Interpretation Comments ALT (test code = ALT) 35 See_Comment [Auto mated message] The system which ge nerated this result transmit uri reference range : <=65. The reference range was not used to interpr et this result as shailesh l/abnormal. [facility]2018-05-29 01:04:00 Test Item Value Reference Range Interpretation Comments Albumin Lvl (test code = Albumin Lvl) 3.7 3.5-5.0 [facility]2018-05-29 01:04:00 Test Item Value Reference Range Interpretation Comments Alk Phos (test code = Alk Phos) 83 39-136 [facility]2018-05-29 01:04:00 Test Item Value Reference Range Interpretation Comments AST (test code = AST) 21 See_Comment [Auto mated message] The system which ge nerated this result transmit uri reference range : <=37. The reference range was not used to interpr et this result as shailesh l/abnormal. [facility]2018-05-29 01:04:00 Test Item Value Reference Range Interpretation Comments Total Protein (test code = Total 7.5 6.4-8.4 Protein) [facility]2018-05-29 01:04:00 Test Item Value Reference Range Interpretation Comments BUN (test code = BUN) 20 7-22 [facility]2018-05-29 01:04:00 Test Item Value Reference Range Interpretation Comments Glucose Lvl (test code = Glucose Lvl) 98 70-99 [facility]2018-05-29 01:04:00 Test Item Value Reference Range Interpretation Comments Creatinine Lvl (test code = Creatinine 0.74 0.50-1.40 Lvl) [facility]2018-05-29 01:04:00 Test Item Value Reference Range Interpretation Comments Calcium Lvl (test code = Calcium Lvl) 8.7 8.5-10.5 [facility]2018-05-29 01:04:00 Test Item Value Reference Range Interpretation Comments CO2 (test code = CO2) 27 24-32 [facility]2018-05-29 01:04:00 Test Item Value Reference Range Interpretation Comments Sodium Lvl (test code = Sodium Lvl) 141 135-145 [facility]2018-05-29 01:04:00 Test Item Value Reference Range Interpretation Comments Chloride Lvl (test code = Chloride Lvl) 107 95-109 [facility]2018-05-29 01:04:00 Test Item Value Reference Range Interpretation Comments Potassium Lvl (test code = Potassium 3.8 3.5-5.1 Lvl) [facility]2018-05-29 01:04:00 Test Item Value Reference Range Interpretation Comments AGAP (test code = AGAP) 10.8 10.0-20.0 [facility]2018-05-29 01:04:00 Test Item Value Reference Range Interpretation Comments A/G Ratio (test code = A/G Ratio) 1.0 1 0.7-1.6 [facility]2018-05-29 01:04:00 Test Item Value Reference Range Interpretation Comments B/C Ratio (test code = B/C Ratio) 27 1 6-25 [facility]2018-05-29 01:04:00 Test Item Value Reference Range Interpretation Comments Globulin (test code = Globulin) 3.8 2.7-4.2 [facility] TaylorFxygaqvLYZZKCMPYXGOA2508-86-19 01:04:00 Test Item Value Reference Range Interpretation Comments S Preg (test code = S Negative *NA*(11/04/17 Preg) 8:04 PM) [facility] CenterCxgelcjQFMRFQFUKV0075-80-92 01:04:00 Test Item Value Reference Range Interpretation Comments Platelet (test code = Platelet) 192 133-450 [facility] CenterDyjelpzHTQLINKKCJ8242-11-50 01:04:00 Test Item Value Reference Range Interpretation Comments MPV (test code = MPV) 9.2 7.4-10.4 [facility] CenterKldwjxiSHTTMUMSWR2848-03-66 01:04:00 Test Item Value Reference Range Interpretation Comments RBC (test code = RBC) 4.42 4.20-5.40 [facility] CenterTovxjywCLDHVHFMHS8693-30-15 01:04:00 Test Item Value Reference Range Interpretation Comments WBC (test code = WBC) 10.3 3.7-10.4 [facility] CenterTlgavhyPSVDRPUNOS4603-56-19 01:04:00 Test Item Value Reference Range Interpretation Comments Hgb (test code = Hgb) 13.6 12.0-16.0 [facility] CenterMoiqqrnCTHFAASLRA3371-46-59 01:04:00 Test Item Value Reference Range Interpretation Comments Hct (test code = Hct) 40.2 36.0-48.0 [facility] CenterBjhmavzKREWLYJQZY0417-95-62 01:04:00 Test Item Value Reference Range Interpretation Comments MCH (test code = MCH) 30.8 pg 27.0-31.0 [facility] CenterTlkmvzoQXKCBEMWZG8276-42-01 01:04:00 Test Item Value Reference Range Interpretation Comments MCV (test code = MCV) 90.9 80.0-98.0 [facility] CenterIjrkuimGHZHWPFBTY6832-73-69 01:04:00 Test Item Value Reference Range Interpretation Comments RDW (test code = RDW) 12.6 11.5-14.5 [facility] CenterNeickzrILPNGXSBRR2343-76-58 01:04:00 Test Item Value Reference Range Interpretation Comments MCHC (test code = MCHC) 33.8 32.0-36.0 [facility] CenterAanbzlsBXKDAYOKAT8099-09-64 01:04:00 Test Item Value Reference Range Interpretation Comments Segs (test code = Segs) 52.3 45.0-75.0 [facility] CenterHxjitprUFXQGEGHNY4087-42-15 01:04:00 Test Item Value Reference Range Interpretation Comments Monocytes (test code = Monocytes) 8.0 2.0-12.0 [facility] CenterEdxmyhnYDVICRPHTJ4894-44-20 01:04:00 Test Item Value Reference Range Interpretation Comments Lymphocytes (test code = Lymphocytes) 38.3 20.0-40.0 [facility] CenterAupszgzYCMQAYRBDC6768-65-30 01:04:00 Test Item Value Reference Range Interpretation Comments Eosinophils (test code = 0.9 See_Comment [A utomated message] The Eosinophils) system which ge nerated this result tra nsmitted reference range : <=4.0. The reference r kavon was not used to int erpret this result as normal/abnormal . [facility] CenterKwvgkitGIVXPBQKCJ5925-09-12 01:04:00 Test Item Value Reference Range Interpretation Comments Basophils (test code = 0.5 See_Comment [Aut omated message] The Basophils) system which ge nerated this result tra nsmitted reference range : <=1.0. The reference r kavon was not used to int erpret this result as normal/abnormal . [facility] CenterYacunsuUVZACTOMZY0706-15-74 01:04:00 Test Item Value Reference Range Interpretation Comments Segs-Bands # (test code = Segs-Bands #) 5.4 1.5-8.1 [facility] CenterFgikiktJGLQGYQXGE9000-29-56 01:04:00 Test Item Value Reference Range Interpretation Comments Monocytes # (test code 0.8 See_Comment [Aut omated message] The = Monocytes #) system which generated this result tra nsmitted reference range : <=0.8. The reference r kavon was not used to int erpret this result as normal/abnormal . [facility] CenterYkumokrUBKFGKGFJR7750-82-84 01:04:00 Test Item Value Reference Range Interpretation Comments Lymphocytes # (test code = Lymphocytes 3.9 1.0-5.5 #) [facility] CenterJnjqyuhZRGQJXKLGT2375-66-66 01:04:00 Test Item Value Reference Range Interpretation Comments Eosinophils # (test code 0.1 See_Comment [A utomated message] The = Eosinophils #) system ic h generated this result tra nsmitted reference range : <=0.5. The reference r kavon was not used to int erpret this result as normal/abnormal . [facility] CampusDkkntrqKEYRCEMZKC6348-99-26 01:04:00 Test Item Value Reference Range Interpretation Comments Basophils # (test code 0.1 See_Comment [Aut omated message] The = Basophils #) system which generated this result tra nsmitted reference range : <=0.2. The reference r kavon was not used to int erpret this result as normal/abnormal . [facility] MHIJT4816-05-83 23:50:00 Test Item Value Reference Range Interpretation Comments UA Mucus (test code = UA Mucus) Many /LPF [facility] [id number] 23:50:00 Test Item Value Reference Range Interpretation Comments UA RBC (test None Seen See_Comment [Automated mes krysta] code = UA RBC) (11/04/17 6:50 The system w hich PM) generated this result transmitted ref erence range: <=2. The reference range was not used to int erpret this result as normal/abnormal . [facility] [id number] 23:50:00 Test Item Value Reference Range Interpretation Comments UA Bacteria (test code = UA Few /HPF Bacteria) [facility] [id number] 23:50:00 Test Item Value Reference Range Interpretation Comments UA Sq Epi (test code = UA Sq Epi) Few /LPF [facility] AND [id number] 23:50:00 Test Item Value Reference Range Interpretation Comments UA WBC (test code = UA WBC) 3-5 /HPF [facility] [id number] 23:50:00 Test Item Value Reference Range Interpretation Comments UA Leuk Est (test Negative (11/04/17 6:50 code = UA Leuk Est) PM) [facility] [id number] 23:50:00 Test Item Value Reference Range Interpretation Comments UA Ketones (test code Negative *NA*(11/04/17 = UA Ketones) 6:50 PM) [facility]URINE AND [id number] 23:50:00 Test Item Value Reference Range Interpretation Comments UA Urobilinogen (test code = UA 0.2 0.1-1.0 Urobilinogen) [facility] [id number] 23:50:00 Test Item Value Reference Range Interpretation Comments UA Nitrite (test code Negative (11/04/17 6:50 = UA Nitrite) PM) [facility] AND [id number] 23:50:00 Test Item Value Reference Range Interpretation Comments UA Blood (test code = Negative (11/04/17 6:50 UA Blood) PM) [facility] AND [id number] 23:50:00 Test Item Value Reference Range Interpretation Comments UA Glucose (test code Negative (11/04/17 6:50 = UA Glucose) PM) [facility] AND [id number] 23:50:00 Test Item Value Reference Range Interpretation Comments UA Protein (test code Negative (11/04/17 6:50 = UA Protein) PM) [facility] AND [id number] 23:50:00 Test Item Value Reference Range Interpretation Comments UA Bili (test code = Negative *NA*(11/04/17 UA Bili) 6:50 PM) [facility] AND [id number] 23:50:00 Test Item Value Reference Range Interpretation Comments UA Spec Grav (test >=1.030 *ABN*(11/04/17 code = UA Spec Grav) 6:50 PM) [facility] AND [id number] 23:50:00 Test Item Value Reference Range Interpretation Comments UA pH (test code = UA pH) 6.0 1 5.0-8.0 [facility] AND [id number] 23:50:00 Test Item Value Reference Range Interpretation Comments UA Color (test code = Yellow *NA*(11/04/17 UA Color) 6:50 PM) [facility] AND [id number] 23:50:00 Test Item Value Reference Range Interpretation Comments UA Turbidity (test code = Clear (11/04/17 6:50 UA Turbidity) PM) [facility] AND [id number] 23:50:00 Test Item Value Reference Range Interpretation Comments UA Mucus (test code = UA Mucus) Many /LPF [facility] AND [id number] 23:50:00 Test Item Value Reference Range Interpretation Comments UA RBC (test None Seen See_Comment [Automated mes krysta] code = UA RBC) (11/04/17 6:50 The system w [facility] PM) generated this result transmitted ref erence range: <=2. The reference range was not used to int erpret this result as normal/abnormal . [facility] AND [id number] 23:50:00 Test Item Value Reference Range Interpretation Comments UA Bacteria (test code = UA Few /HPF Bacteria) [facility] AND [id number] 23:50:00 Test Item Value Reference Range Interpretation Comments UA Sq Epi (test code = UA Sq Epi) Few /LPF [facility] AND [id number] 23:50:00 Test Item Value Reference Range Interpretation Comments UA WBC (test code = UA WBC) 3-5 /HPF [facility] AND [id number] 23:50:00 Test Item Value Reference Range Interpretation Comments UA Leuk Est (test Negative (11/04/17 6:50 code = UA Leuk Est) PM) [facility] AND [id number] 23:50:00 Test Item Value Reference Range Interpretation Comments UA Ketones (test code Negative *NA*(11/04/17 = UA Ketones) 6:50 PM) [facility] AND [id number] 23:50:00 Test Item Value Reference Range Interpretation Comments UA Urobilinogen (test code = UA 0.2 0.1-1.0 Urobilinogen) [facility] AND [id number] 23:50:00 Test Item Value Reference Range Interpretation Comments UA Nitrite (test code Negative (11/04/17 6:50 = UA Nitrite) PM) [facility] AND [id number] 23:50:00 Test Item Value Reference Range Interpretation Comments UA Blood (test code = Negative (11/04/17 6:50 UA Blood) PM) [facility] AND [id number] 23:50:00 Test Item Value Reference Range Interpretation Comments UA Glucose (test code Negative (11/04/17 6:50 = UA Glucose) PM) [facility] AND [id number] 23:50:00 Test Item Value Reference Range Interpretation Comments UA Protein (test code Negative (11/04/17 6:50 = UA Protein) PM) [facility] AND [id number] 23:50:00 Test Item Value Reference Range Interpretation Comments UA Bili (test code = Negative *NA*(11/04/17 UA Bili) 6:50 PM) [facility] AND [id number] 23:50:00 Test Item Value Reference Range Interpretation Comments UA Spec Grav (test >=1.030 *ABN*(11/04/17 code = UA Spec Grav) 6:50 PM) [facility] AND [id number] 23:50:00 Test Item Value Reference Range Interpretation Comments UA pH (test code = UA pH) 6.0 1 5.0-8.0 [facility] AND [id number] 23:50:00 Test Item Value Reference Range Interpretation Comments UA Color (test code = Yellow *NA*(11/04/17 UA Color) 6:50 PM) [facility] AND [id number] 23:50:00 Test Item Value Reference Range Interpretation Comments UA Turbidity (test code = Clear (11/04/17 6:50 UA Turbidity) PM) [facility] AND [id number] 23:50:00 Test Item Value Reference Range Interpretation Comments UA Mucus (test code = UA Mucus) Many /LPF [facility] AND [id number] 23:50:00 Test Item Value Reference Range Interpretation Comments UA RBC (test None Seen See_Comment [Automated mes krysta] code = UA RBC) (11/04/17 6:50 The system w hich PM) generated this result transmitted ref erence range: <=2. The reference range was not used to int erpret this result as normal/abnormal . [facility] AND [id number] 23:50:00 Test Item Value Reference Range Interpretation Comments UA Bacteria (test code = UA Few /HPF Bacteria) [facility] AND [id number] 23:50:00 Test Item Value Reference Range Interpretation Comments UA Sq Epi (test code = UA Sq Epi) Few /LPF [facility] AND [id number] 23:50:00 Test Item Value Reference Range Interpretation Comments UA WBC (test code = UA WBC) 3-5 /HPF [facility] AND [id number] 23:50:00 Test Item Value Reference Range Interpretation Comments UA Leuk Est (test Negative (11/04/17 6:50 code = UA Leuk Est) PM) [facility] AND [id number] 23:50:00 Test Item Value Reference Range Interpretation Comments UA Ketones (test code Negative *NA*(11/04/17 = UA Ketones) 6:50 PM) [facility] AND [id number] 23:50:00 Test Item Value Reference Range Interpretation Comments UA Urobilinogen (test code = UA 0.2 0.1-1.0 Urobilinogen) [facility] AND [id number] 23:50:00 Test Item Value Reference Range Interpretation Comments UA Nitrite (test code Negative (11/04/17 6:50 = UA Nitrite) PM) [facility] AND [id number] 23:50:00 Test Item Value Reference Range Interpretation Comments UA Blood (test code = Negative (11/04/17 6:50 UA Blood) PM) [facility] AND [id number] 23:50:00 Test Item Value Reference Range Interpretation Comments UA Glucose (test code Negative (11/04/17 6:50 = UA Glucose) PM) [facility] AND [id number] 23:50:00 Test Item Value Reference Range Interpretation Comments UA Protein (test code Negative (11/04/17 6:50 = UA Protein) PM) [facility] AND [id number] 23:50:00 Test Item Value Reference Range Interpretation Comments UA Bili (test code = Negative *NA*(11/04/17 UA Bili) 6:50 PM) [facility] AND [id number] 23:50:00 Test Item Value Reference Range Interpretation Comments UA Spec Grav (test >=1.030 *ABN*(11/04/17 code = UA Spec Grav) 6:50 PM) [facility] AND [id number] 23:50:00 Test Item Value Reference Range Interpretation Comments UA pH (test code = UA pH) 6.0 1 5.0-8.0 [facility] AND [id number] 23:50:00 Test Item Value Reference Range Interpretation Comments UA Color (test code = Yellow *NA*(11/04/17 UA Color) 6:50 PM) [facility] AND [id number] 23:50:00 Test Item Value Reference Range Interpretation Comments UA Turbidity (test code = Clear (11/04/17 6:50 UA Turbidity) PM) [place] [id number] 23:15:00 Test Item Value Reference Range Interpretation Comments Grp A Strep Scr (test Negative (11/04/17 6:15 code = Grp A Strep PM) Scr) [place] [id number] 23:15:00 Test Item Value Reference Range Interpretation Comments Grp A Strep Scr (test Negative (11/04/17 6:15 code = Grp A Strep PM) Scr) [place] [id number] 23:15:00 Test Item Value Reference Range Interpretation Comments Grp A Strep Scr (test Negative (11/04/17 6:15 code = Grp A Strep PM) Scr) [place] [id number] 15:45:00 Test Item Value Reference Range Interpretation Comments Grp A Strep Scr (test Negative (07/31/17 9:45 code = Grp A Strep AM) Scr) [facility]2018-02-21 15:45:00 Test Item Value Reference Range Interpretation Comments U Preg (test code = U Negative (07/31/17 9:45 Preg) AM) [facility] [id number] 15:45:00 Test Item Value Reference Range Interpretation Comments Influ B (test code = Negative (07/31/17 9:45 Influ B) AM) [facility] [id number] 15:45:00 Test Item Value Reference Range Interpretation Comments Influ A (test code = Negative (07/31/17 9:45 Influ A) AM) [place] [id number] 15:45:00 Test Item Value Reference Range Interpretation Comments Grp A Strep Scr (test Negative (07/31/17 9:45 code = Grp A Strep AM) Scr) [facility]2018-02-21 15:45:00 Test Item Value Reference Range Interpretation Comments U Preg (test code = U Negative (07/31/17 9:45 Preg) AM) [facility] [id number] 15:45:00 Test Item Value Reference Range Interpretation Comments Influ B (test code = Negative (07/31/17 9:45 Influ B) AM) [facility] - [id number] 15:45:00 Test Item Value Reference Range Interpretation Comments Influ A (test code = Negative (07/31/17 9:45 Influ A) AM) [facility] [id number] 15:45:00 Test Item Value Reference Range Interpretation Comments Grp A Strep Scr (test Negative (07/31/17 9:45 code = Grp A Strep AM) Scr) [facility] [id number] 15:45:00 Test Item Value Reference Range Interpretation Comments U Preg (test code = U Negative (07/31/17 9:45 Preg) AM) [facility] [id number] 15:45:00 Test Item Value Reference Range Interpretation Comments Influ B (test code = Negative (07/31/17 9:45 Influ B) AM) [facility] [id number] 15:45:00 Test Item Value Reference Range Interpretation Comments Influ A (test code = Negative (07/31/17 9:45 Influ A) AM) [facility] [id number] 08:18:00 Test Item Value Reference Range Interpretation Comments D-Dimer (test code = D-Dimer) 0.31 [facility] [id number] 08:18:00 Test Item Value Reference Range Interpretation Comments D-Dimer (test code = D-Dimer) 0.31 [facility] [id number] 08:18:00 Test Item Value Reference Range Interpretation Comments D-Dimer (test code = D-Dimer) 0.31 [facility] AND [id number] 07:11:00 Test Item Value Reference Range Interpretation Comments UA CaOx Renee (test code = UA Occasional /HPF CaOx Renee) [facility] [id number] 07:11:00 Test Item Value Reference Range Interpretation Comments UA Mucus (test code = UA Mucus) Few /LPF [facility] [id number] 07:11:00 Test Item Value Reference Range Interpretation Comments UA Bili (test code = Negative *NA*(11/17/16 UA Bili) 2:11 AM) [facility] [id number] 07:11:00 Test Item Value Reference Range Interpretation Comments UA Ketones (test code = UA Trace mg/dL Ketones) [facility] AND [id number] 07:11:00 Test Item Value Reference Range Interpretation Comments UA Leuk Est (test Negative (11/17/16 2:11 code = UA Leuk Est) AM) [facility] AND [id number] 07:11:00 Test Item Value Reference Range Interpretation Comments UA Glucose (test code = UA Negative mg/dL Glucose) [facility] AND [id number] 07:11:00 Test Item Value Reference Range Interpretation Comments UA Protein (test code = UA Negative mg/dL Protein) [facility] AND [id number] 07:11:00 Test Item Value Reference Range Interpretation Comments UA pH (test code = UA pH) 5.0 5.0-8.0 [facility] AND [id number] 07:11:00 Test Item Value Reference Range Interpretation Comments UA Spec Grav (test code = UA Spec Grav) 1.029 [facility] AND [id number] 07:11:00 Test Item Value Reference Range Interpretation Comments UA Turbidity (test code = Clear (11/17/16 2:11 UA Turbidity) AM) [facility] AND [id number] 07:11:00 Test Item Value Reference Range Interpretation Comments UA Color (test code = Yellow *NA*(11/17/16 UA Color) 2:11 AM) [facility] AND [id number] 07:11:00 Test Item Value Reference Range Interpretation Comments UA Nitrite (test code Negative (11/17/16 2:11 = UA Nitrite) AM) [facility] AND [id number] 07:11:00 Test Item Value Reference Range Interpretation Comments UA Urobilinogen (test code = UA 2.0 0.1-1.0 Urobilinogen) [facility] AND [id number] 07:11:00 Test Item Value Reference Range Interpretation Comments UA Blood (test code = Negative (11/17/16 2:11 UA Blood) AM) [facility] AND [id number] 07:11:00 Test Item Value Reference Range Interpretation Comments UA Sq Epi (test code = UA Sq Epi) Many /LPF [facility] AND [id number] 07:11:00 Test Item Value Reference Range Interpretation Comments UA RBC (test code = 2 See_Comment [Automa uri message] The UA RBC) system which ge nerated this result transmit uri reference range : <=2. The reference range was not used to interpr et this result as shailesh l/abnormal. [facility] AND [id number] 07:11:00 Test Item Value Reference Range Interpretation Comments UA WBC (test code = 3 See_Comment [Automa uri message] The UA WBC) system which ge nerated this result transmit uri reference range : <=5. The reference range was not used to interpr et this result as shailesh l/abnormal. [facility] [id number] 07:11:00 Test Item Value Reference Range Interpretation Comments U Preg (test code = U Negative (11/17/16 2:11 Preg) AM) [facility] AND [id number] 07:11:00 Test Item Value Reference Range Interpretation Comments UA CaOx Renee (test code = UA Occasional /HPF CaOx Renee) [facility] AND [id number] 07:11:00 Test Item Value Reference Range Interpretation Comments UA Mucus (test code = UA Mucus) Few /LPF [facility] AND [id number] 07:11:00 Test Item Value Reference Range Interpretation Comments UA Bili (test code = Negative *NA*(11/17/16 UA Bili) 2:11 AM) [facility] AND [id number] 07:11:00 Test Item Value Reference Range Interpretation Comments UA Ketones (test code = UA Trace mg/dL Ketones) [facility] AND [id number] 07:11:00 Test Item Value Reference Range Interpretation Comments UA Leuk Est (test Negative (11/17/16 2:11 code = UA Leuk Est) AM) [facility] AND [id number] 07:11:00 Test Item Value Reference Range Interpretation Comments UA Glucose (test code = UA Negative mg/dL Glucose) [facility] AND [id number] 07:11:00 Test Item Value Reference Range Interpretation Comments UA Protein (test code = UA Negative mg/dL Protein) [facility] AND [id number] 07:11:00 Test Item Value Reference Range Interpretation Comments UA pH (test code = UA pH) 5.0 5.0-8.0 [facility] [id number] 07:11:00 Test Item Value Reference Range Interpretation Comments UA Spec Grav (test code = UA Spec Grav) 1.029 [facility] AND [id number] 07:11:00 Test Item Value Reference Range Interpretation Comments UA Turbidity (test code = Clear (11/17/16 2:11 UA Turbidity) AM) [facility] AND [id number] 07:11:00 Test Item Value Reference Range Interpretation Comments UA Color (test code = Yellow *NA*(11/17/16 UA Color) 2:11 AM) [facility] AND [id number] 07:11:00 Test Item Value Reference Range Interpretation Comments UA Nitrite (test code Negative (11/17/16 2:11 = UA Nitrite) AM) [facility] AND [id number] 07:11:00 Test Item Value Reference Range Interpretation Comments UA Urobilinogen (test code = UA 2.0 0.1-1.0 Urobilinogen) [facility] AND [id number] 07:11:00 Test Item Value Reference Range Interpretation Comments UA Blood (test code = Negative (11/17/16 2:11 UA Blood) AM) [facility] AND [id number] 07:11:00 Test Item Value Reference Range Interpretation Comments UA Sq Epi (test code = UA Sq Epi) Many /LPF [facility] AND [id number] 07:11:00 Test Item Value Reference Range Interpretation Comments UA RBC (test code = 2 See_Comment [Automa uri message] The UA RBC) system which ge nerated this result transmit uri reference range : <=2. The reference range was not used to interpr et this result as shailesh l/abnormal. [facility] AND [id number] 07:11:00 Test Item Value Reference Range Interpretation Comments UA WBC (test code = 3 See_Comment [Automa uri message] The UA WBC) system which ge nerated this result transmit uri reference range : <=5. The reference range was not used to interpr et this result as shailesh l/abnormal. [facility] [id number] 07:11:00 Test Item Value Reference Range Interpretation Comments U Preg (test code = U Negative (6/10/17 2:11 Preg) AM) [facility] AND [id number] 07:11:00 Test Item Value Reference Range Interpretation Comments UA CaOx Renee (test code = UA Occasional /HPF CaOx Renee) [facility] AND [id number] 07:11:00 Test Item Value Reference Range Interpretation Comments UA Mucus (test code = UA Mucus) Few /LPF [facility] AND [id number] 07:11:00 Test Item Value Reference Range Interpretation Comments UA Bili (test code = Negative *NA*(11/17/16 UA Bili) 2:11 AM) [facility] AND [id number] 07:11:00 Test Item Value Reference Range Interpretation Comments UA Ketones (test code = UA Trace mg/dL Ketones) [facility] AND [id number] 07:11:00 Test Item Value Reference Range Interpretation Comments UA Leuk Est (test Negative (11/17/16 2:11 code = UA Leuk Est) AM) [facility] AND [id number] 07:11:00 Test Item Value Reference Range Interpretation Comments UA Glucose (test code = UA Negative mg/dL Glucose) [facility] AND [id number] 07:11:00 Test Item Value Reference Range Interpretation Comments UA Protein (test code = UA Negative mg/dL Protein) [facility] AND [id number] 07:11:00 Test Item Value Reference Range Interpretation Comments UA pH (test code = UA pH) 5.0 5.0-8.0 [facility] AND [id number] 07:11:00 Test Item Value Reference Range Interpretation Comments UA Spec Grav (test code = UA Spec Grav) 1.029 [facility] AND [id number] 07:11:00 Test Item Value Reference Range Interpretation Comments UA Turbidity (test code = Clear (11/17/16 2:11 UA Turbidity) AM) [facility] AND [id number] 07:11:00 Test Item Value Reference Range Interpretation Comments UA Color (test code = Yellow *NA*(11/17/16 UA Color) 2:11 AM) [facility] AND [id number] 07:11:00 Test Item Value Reference Range Interpretation Comments UA Nitrite (test code Negative (11/17/16 2:11 = UA Nitrite) AM) [facility] AND [id number] 07:11:00 Test Item Value Reference Range Interpretation Comments UA Urobilinogen (test code = UA 2.0 0.1-1.0 Urobilinogen) [facility] AND [id number] 07:11:00 Test Item Value Reference Range Interpretation Comments UA Blood (test code = Negative (11/17/16 2:11 UA Blood) AM) [facility] AND [id number] 07:11:00 Test Item Value Reference Range Interpretation Comments UA Sq Epi (test code = UA Sq Epi) Many /LPF [facility] AND [id number] 07:11:00 Test Item Value Reference Range Interpretation Comments UA RBC (test code = 2 See_Comment [Automa uri message] The UA RBC) system which ge nerated this result transmit uri reference range : <=2. The reference range was not used to interpr et this result as shailesh l/abnormal. [facility] AND [id number] 07:11:00 Test Item Value Reference Range Interpretation Comments UA WBC (test code = 3 See_Comment [Automa uri message] The UA WBC) system which ge nerated this result transmit uri reference range : <=5. The reference range was not used to interpr et this result as shailesh l/abnormal. [facility] [id number] 07:11:00 Test Item Value Reference Range Interpretation Comments U Preg (test code = U Negative (11/17/16 2:11 Preg) AM) [facility]
[2022-08-11 10:41] LABS: Urine Blood Negative (Negative); Urine Glucose Negative (Negative); Urine Protein 2+ (Negative); Urine Specific Gravity 1.025 (1.005-1.030)
[2022-08-11] MEDS ORDERED: NA CHLORIDE 0.9% 1,000 ML ONE (11:03)
[2022-08-11] MEDS ORDERED: FAMOTIDINE 20 MG/2 ML VIAL IV ONE (11:03)
[2022-08-11 11:07] LABS: Urine Bacteria 20-50 /HPF (<20); Urine Mucus 4+ /HPF (None Seen); Urine RBC 21-50 /HPF (None Seen)
[2022-08-11 11:20] LABS: Absolute Lymphocytes (CBC) 1.5 K/uL (0.7-4.9); Hematocrit 45.9 % (36.0-45.0); Lymphocytes % 11.4 % (15.3-44.8); MCV 92.4 fL (80-100); MPV 8.7 fL (7.6-11.3); RBC Red Blood Cell Count 4.97 M/uL (3.86-4.86)
[2022-08-11 11:35] LABS: Bilirubin Total 0.4 mg/dL (0.2-1.0); Potassium 3.4 mmol/L (3.5-5.1); Protein, Total 8.7 g/dL (6.4-8.2)
[2022-08-11 12:22] LABS: Urine Specific Gravity/Preg 1.025 (1.005-1.030)
[2022-08-11] MEDS ORDERED: SUCRALFATE 1 GM TABLET ONE (13:04)
[2022-08-11] MEDS ORDERED: PROMETHAZINE INJ 25 MG/ML AMP ONE (13:04)
[2022-08-11] MEDS ORDERED: NA CHLORIDE 0.9% 500 ML ONE ×2 (13:05→14:00)
--- NOTE | 2022-08-11 14:08 | ER ---
Nurse's Notes [facility] Name: Husam Amos Age: 22 yrs Sex: Female : 2000 Arrival Date: 08/11/2022 Time: 10:14 Bed 4 Private MD: Diagnosis: Gastritis, unspecified, without bleeding Presentation: 08/11 10:30 Chief complaint: Patient states: abd pain, N/V/D that began last night. HX of ss gastritis. Pt believes this may be another flare up. Coronavirus screen: Client denies travel out of the [place] in the last 14 days. Ebola Screen: Patient denies exposure to infectious person. Patient denies travel to an Ebola-affected area in the 21 days before illness onset. Initial Sepsis Screen: Does the patient meet any 2 criteria? No. Patient's initial sepsis screen is negative. Does the patient have a suspected source of infection? No. Patient's initial sepsis screen is negative. Risk Assessment: Do you want to hurt yourself or someone else? Patient reports no desire to harm self or others. Onset of symptoms was August 10, 2022. 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 - Social history:: Smoking status: Patient denies any tobacco usage or history of. Patient uses street drugs, marijuana. Screenin:48 [facility] ED Fall Risk Assessment (Adult) History of falling in the last 3 months, vg1 including since admission No falls in past 3 months (0 pts) Confusion or Disorientation No (0 pts) Intoxicated or Sedated No (0 pts) Impaired Gait No (0 pts) Mobility Assist Device Used No (0 pt) Altered Elimination No (0 pt) Score/Fall Risk Level 0 - 2 = Low Risk Oriented to surroundings, Maintained a safe environment, Educated pt \T\ family on fall prevention, incl call for assistance when getting out of bed, Assessed \T\ reinforced patient's understanding of fall precautions. Abuse screen: Denies threats or abuse. Denies injuries from another. Nutritional screening: No deficits noted. Tuberculosis screening: No symptoms or risk factors identified. Assessment: 10:48 General: Appears in no apparent distress. uncomfortable, Behavior is calm, cooperative. vg1 Pain: Complains of pain in epigastric area Pain currently is 7 out of 10 on a pain scale. Pain began 1 day ago. Neuro: Level of Consciousness is awake, alert, obeys commands, Oriented to person, place, time, situation. Cardiovascular: Patient's skin is warm and dry. Respiratory: Airway is patent Respiratory effort is even, unlabored. GI: Abdomen is round non-distended, Bowel sounds present X 4 quads. Abdomen is tender to palpation in epigastric area Reports diarrhea, nausea, vomiting, since 08/10/22. : No signs and/or symptoms were reported regarding the genitourinary system. EENT: No signs and/or symptoms were reported regarding the EENT system. Derm: Skin is pink, warm \T\ dry. Musculoskeletal: Circulation, motion, and sensation intact. 13:05 Reassessment: Patient appears in no apparent distress at this time. No changes from vg1 previously documented assessment. Patient and/or family updated on plan of care and expected duration. Pain level reassessed. Patient is alert, oriented x 3, equal unlabored respirations, skin warm/dry/pink. 13:52 Reassessment: Patient appears in no apparent distress at this time. Patient and/or vg1 family updated on plan of care and expected duration. Pain level reassessed. Patient is alert, oriented x 3, equal unlabored respirations, skin warm/dry/pink. Orthostatics completed, pt stated dizziness upon standing; provider notified. Vital Signs: 10:27 Resp 15; Temp 98.2(TE); Pulse Ox 100% ; Weight 86.18 kg; Height 5 ft. 7 in. (170.18 cm);ss 10:30 BP 125 / 91; Pulse 117; ss 12:55 BP 122 / 83; Pulse 101; Resp 18; Pulse Ox 100% on R/A; kr3 13:47 BP 119 / 83 Supine; Pulse 91; Resp 20; Pulse Ox 100% ; vg1 13:49 BP 121 / 82 Sitting; Pulse 94; Resp 15; Pulse Ox 100% on R/A; vg1 13:51 BP 120 / 84 Standing; Pulse 104; Resp 16; Pulse Ox 100% on R/A; vg1 14:30 BP 117 / 78; Pulse 87; Resp 17; Pulse Ox 100% on R/A; kr3 10:27 Body Mass Index 29.76 (86.18 kg, 170.18 cm) ss 13:51 Pt stated dizziness vg1 ED Course: 10:14 Patient arrived in ED. mr 10:19 Abby Mercer, CHELSIE-C is PHCP. snw 10:19 Jocelyn Mcnally MD is Attending Physician. snw 10:27 Arm band placed on left wrist. ss 10:31 Triage completed. ss 10:34 Steffi Lawrence, RN is Primary Nurse. vg1 10:48 Patient has correct armband on for positive identification. Placed in gown. Bed in low vg1 position. Call light in reach. Side rails up X 1. 11:05 Initial lab(s) drawn, by mi, sent to lab. Inserted saline lock: 20 gauge in right vg1 antecubital area, using aseptic technique. Blood collected. 14:30 No provider procedures requiring assistance completed. IV discontinued, intact, kr3 bleeding controlled, No redness/swelling at site. Pressure dressing applied. Administered Medications: 11:07 Drug: NS 0.9% 1000 ml Route: IV; Rate: 1 bolus; Site: right antecubital; vg1 12:57 Follow up: IV Status: Infusion continued; IV Intake: 1000ml vg1 11:07 Drug: Pepcid (famotidine) 20 mg Route: IVP; Site: right antecubital; vg1 12:57 Follow up: Response: No adverse reaction vg1 13:13 Drug: CarafATE (sucralfate) 1 grams Route: PO; kr3 13:52 Follow up: Response: No adverse reaction vg1 13:13 Drug: Promethazine 12.5 mg Route: IVP; Site: right antecubital; kr3 13:52 Follow up: Response: No adverse reaction; Marked relief of symptoms vg1 13:58 Drug: NS 0.9% 500 ml Route: IV; Rate: bolus; Site: right antecubital; vg1 15:09 Follow up: IV Status: Completed infusion; IV Intake: 500ml vg1 Medication: 10:48 VIS not applicable for this client. vg1 Intake: 12:57 IV: 1000ml; Total: 1000ml. vg1 15:09 IV: 500ml; Total: 1500ml. vg1 Outcome: 14:08 Discharge ordered by MD. salmeron 14:27 Patient left the ED. kr3 14:30 Discharged to home ambulatory. kr3 14:30 Condition: stable 14:30 Discharge instructions given to patient, Instructed on discharge instructions, follow up and referral plans. medication usage, Demonstrated understanding of instructions, follow-up care, medications, Prescriptions given X 2. Signatures: Abby Mercer, PULL OUT OPERATOR-C PULL OUT OPERATOR-Csnw FineKathrin Valeria Marcus, RN RN Steffi Wilde RN RN vg1 Aylin Mitchell RN RN kr3
--- NOTE | 2022-08-11 14:09 | EDPHYS ---
Physician Documentation [facility] Name: Husam Amos Age: 22 yrs Sex: Female : 2000 Arrival Date: 08/11/2022 Time: 10:14 Bed 4 Private MD: ED Physician Jocelyn Mcnally HPI: 08/11 11:23 This 22 yrs old Female presents to ER via Ambulatory with complaints of Abdominal Pain, snw Vomiting. 11:23 The patient presents with abdominal pain in the epigastric area, in the upper abdomen. snw Onset: The symptoms/episode began/occurred yesterday, and became persistent. The symptoms do not radiate. Associated signs and symptoms: Pertinent positives: nausea and vomiting. The symptoms are described as burning. Severity of pain: At its worst the pain was moderate. The patient has experienced similar episodes in the past, chronically, "since I was 13". It is unknown whether or not the patient has recently seen a physician. 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 - Social history:: Smoking status: Patient denies any tobacco usage or history of. Patient uses street drugs, marijuana. ROS: 11:23 Constitutional: Negative for fever, chills, and weight loss, Eyes: Negative for injury, snw pain, redness, and discharge, ENT: Negative for injury, pain, and discharge, Neck: Negative for injury, pain, and swelling, Cardiovascular: Negative for chest pain, palpitations, and edema, Respiratory: Negative for shortness of breath, cough, wheezing, and pleuritic chest pain, Back: Negative for injury and pain, : Negative for injury, bleeding, discharge, and swelling, MS/Extremity: Negative for injury and deformity, Skin: Negative for injury, rash, and discoloration, Neuro: Negative for headache, weakness, numbness, tingling, and seizure, Psych: Negative for depression, anxiety, suicide ideation, homicidal ideation, and hallucinations. 11:23 Abdomen/GI: Positive for nausea, vomiting. Exam: 11:21 Constitutional: This is a well developed, well nourished patient who is awake, alert, snw and in no acute distress but pale Head/Face: Normocephalic, atraumatic. Eyes: Pupils equal round and reactive to light, extra-ocular motions intact. Lids and lashes normal. Conjunctiva and sclera are non-icteric and not injected. Cornea within normal limits. Periorbital areas with no swelling, redness, or edema. ENT: Nares patent. No nasal discharge, no septal abnormalities noted. Tympanic membranes are normal and external auditory canals are clear. Oropharynx with no redness, swelling, or masses, exudates, or evidence of obstruction, uvula midline. Mucous membranes moist. Neck: Trachea midline, no thyromegaly or masses palpated, and no cervical lymphadenopathy. Supple, full range of motion without nuchal rigidity, or vertebral point tenderness. No Meningismus. Chest/axilla: Normal chest wall appearance and motion. Nontender with no deformity. No lesions are appreciated. 11:21 Respiratory: Lungs have equal breath sounds bilaterally, clear to auscultation and percussion. No rales, rhonchi or wheezes noted. No increased work of breathing, no retractions or nasal flaring. Back: No spinal tenderness. No costovertebral tenderness. Full range of motion. 11:21 MS/ Extremity: Pulses equal, no cyanosis. Neurovascular intact. Full, normal range of motion. Neuro: Awake and alert, GCS 15, oriented to person, place, time, and situation. Cranial nerves II-XII grossly intact. Motor strength 5/5 in all extremities. Sensory grossly intact. Cerebellar exam normal. Normal gait. 11:21 Cardiovascular: Rate: tachycardic, Rhythm: regular, Pulses: no pulse deficits are appreciated. 11:21 Abdomen/GI: Inspection: abdomen appears normal, Bowel sounds: normal, Palpation: mild abdominal tenderness, in the epigastric area, right upper quadrant and left upper quadrant. 11:21 Skin: Appearance: Color: pale. Vital Signs: 10:27 Resp 15; Temp 98.2(TE); Pulse Ox 100% ; Weight 86.18 kg; Height 5 ft. 7 in. (170.18 cm);ss 10:30 BP 125 / 91; Pulse 117; ss 12:55 BP 122 / 83; Pulse 101; Resp 18; Pulse Ox 100% on R/A; kr3 13:47 BP 119 / 83 Supine; Pulse 91; Resp 20; Pulse Ox 100% ; vg1 13:49 BP 121 / 82 Sitting; Pulse 94; Resp 15; Pulse Ox 100% on R/A; vg1 13:51 BP 120 / 84 Standing; Pulse 104; Resp 16; Pulse Ox 100% on R/A; vg1 14:30 BP 117 / 78; Pulse 87; Resp 17; Pulse Ox 100% on R/A; kr3 10:27 Body Mass Index 29.76 (86.18 kg, 170.18 cm) ss 13:51 Pt stated dizziness vg1 MDM: 10:33 Patient medically screened. snw 14:09 Differential diagnosis: cholecystitis, Cholelithiasis, gastritis, gastroesophageal snw reflux disease, Irritable bowel syndrome, non-specific abd pain. 14:10 Data reviewed: vital signs, nurses notes, lab test result(s). Counseling: I had a snw detailed discussion with the patient and/or guardian regarding: the historical points, exam findings, and any diagnostic results supporting the discharge/admit diagnosis, lab results, the need for outpatient follow up. 08/11 10:20 Order name: Urine Microscopic Only [facility] 08/11 10:20 Order name: Urine Dipstick-Ancillary (obtain specimen); Complete Time: 10:50 sn 08/11 10:20 Order name: Urine Test (obtain specimen); Complete Time: 10:50 snw 08/11 10:42 Order name: Urine Dipstick-Ancillary; Complete Time: 10:54 EDMS 08/11 10:45 Order name: Urine --Ancillary (enter results) eb 08/11 10:54 Order name: CBC with Diff snw 08/11 10:54 Order name: CMP snw 08/11 10:54 Order name: Lipase w 08/11 10:54 Order name: IV Saline Lock; Complete Time: 11:10 snw 08/11 10:54 Order name: Labs collected and sent; Complete Time: 11:10 snw 08/11 11:07 Order name: Urine Microscopic Only; Complete Time: 11:13 EDMS 08/11 11:21 Order name: CBC with Automated Diff; Complete Time: 11:21 EDMS 08/11 11:35 Order name: Comprehensive Metabolic Panel; Complete Time: 11:36 EDMS 08/11 11:35 Order name: Lipase; Complete Time: 11:36 EDMS 08/11 12:13 Order name: VS Recheck; Complete Time: 13:01 snw 08/11 12:22 Order name: Urine --Ancillary; Complete Time: 12:25 EDMS 08/11 13:35 Order name: Orthostatics; Complete Time: 13:52 snw Administered Medications: 11:07 Drug: NS 0.9% 1000 ml Route: IV; Rate: 1 bolus; Site: right antecubital; vg1 12:57 Follow up: IV Status: Infusion continued; IV Intake: 1000ml vg1 11:07 Drug: Pepcid (famotidine) 20 mg Route: IVP; Site: right antecubital; vg1 12:57 Follow up: Response: No adverse reaction vg1 13:13 Drug: CarafATE (sucralfate) 1 grams Route: PO; kr3 13:52 Follow up: Response: No adverse reaction vg1 13:13 Drug: Promethazine 12.5 mg Route: IVP; Site: right antecubital; kr3 13:52 Follow up: Response: No adverse reaction; Marked relief of symptoms vg1 13:58 Drug: NS 0.9% 500 ml Route: IV; Rate: bolus; Site: right antecubital; vg1 15:09 Follow up: IV Status: Completed infusion; IV Intake: 500ml vg1 Disposition Summary: 08/11/22 14:08 Discharge Ordered Location: Home snw Condition: Stable snw Diagnosis - Gastritis, unspecified, without bleeding snw Followup: snw - With: Emergency Department - When: As needed - Reason: Worsening of condition Followup: snw - With: Private Physician - When: 2 - 3 days - Reason: Recheck today's complaints, Continuance of care, Re-evaluation by your physician Discharge Instructions: - Discharge Summary Sheet snw - Gastritis, Adult snw - Rehydration, Adult snw Forms: - Medication Reconciliation Form snw - Thank You Letter snw - Antibiotic Education snw - Prescription Opioid Use snw - Work release form kr3 Prescriptions: - promethazine 25 mg Rectal suppository - insert 1 suppository by RECTAL route every 6 hours; 12 suppository; Refills: 0, snw Product Selection Permitted - Carafate 1 gram Oral Tablet - take 2 tablets by ORAL route every 12 hours take on an empty stomach, beginning snw on waking and last dose at bedtime; 100 tablet; Refills: 0, Product Selection Permitted Signatures: Dispatcher [employer] EDMS Abby Mercer, CANAL SUPERINTENDENT-C CANAL SUPERINTENDENT-Csnw Valeria Marcus RN RN ss Steffi Lawrence RN RN vg1 Aylin Mitchell RN RN kr3 Corrections: (The following items were deleted from the chart) 13:35 11:23 The patient has experienced similar episodes in the past, chronically, "since I snw was 4", snw
[2022-08-11 14:49] VITALS: TEMP 98.2; O2SAT 100
[2022-08-11 14:59] VITALS: BP 120/84
== END 2022-08-11 14:27 | disposition home or self-care (01) ==
LOC: ER 10:13
DX: K29.70 Gastritis, unspecified, without bleeding (principal); F31.9 Bipolar disorder, unspecified; Z88.8 Allergy status to other drugs, medicaments and biological substances
CPT/HCPCS: 36415; 80053; 81003; 81015; 81025; 83690; 85025; 96361; 96374; 96375; 99284; J2550; J7030; J7040